=== PATIENT | male | born 1975 | race Caucasian/White ===

== ENCOUNTER 2016-12-04 19:26 | Inpatient (IN) ==
[2016-12-04] MEDS ORDERED: DIPRIVAN 1% 2,000 MG/200 ML BOTTLE ONE (21:07)
[2016-12-04] MEDS ORDERED: ZOFRAN IV PRN (22:20)
[2016-12-04] MEDS ORDERED: NS 1,000 ML IV ONE (22:20)
[2016-12-04] MEDS ORDERED: NS 1,000 ML IV SCH (22:20)
[2016-12-04] MEDS ORDERED: SODIUM CHLORIDE 0.9% INJ SCH (22:30)
[2016-12-04] MEDS: NEXIUM IV SCH (22:38)
[2016-12-04] MEDS: SODIUM CHLORIDE 0.9% INJ SCH (22:38)
[2016-12-04] MEDS: LOVENOX SUBQ SCH (22:39)
--- NOTE | 2016-12-04 23:11 | HISTORY AND PHYSICAL ---
PRIMARY CARE PHYSICIAN: Dr. Nhung Quiles CHIEF COMPLAINT: Patient transferred from another hospital. HISTORY OF PRESENT ILLNESS: This is patient that was transferred from [facility] in [place]. Patient admitted over there for drug overdose. Apparently the patient was brought [facility] after being arrested in the police. After arriving to environmental protection officer reported patient became very agitated and diaphoretic so patient was brought to emergency department by EMS. Patient denies any ingestion there. Friends stated that he takes crystal meth. Over there apparently he was not able to managing airway so after he got 10 mg of Valium because he was agitated it was needed to intubate this patient. I was called for transfer this patient because apparently over there the were running out of propofol and that was basically reason for transfer. Patient over here vitals are okay. No family in the bedside to provide more information. All this information has been provided by ER physician from [facility]. By now patient is sedated and intubated. PAST MEDICAL HISTORY: As per ER records patient has hypertension and diabetes but apparently over there family reports that he was not taking any medication as he is suppose to. Past surgical history, family history, review of systems not possible to obtain because of the clinical situation of the patient. ALLERGIES: As per another facility no known drug allergies. PHYSICAL EXAMINATION: VITALS: Blood pressure 147/98, heart rate 96, respiratory rate 18, patient is on ventilator. GENERAL EXAMINATION: This is a 41-year-old male overweight, sedated and intubated. HEENT: Head is normocephalic, atraumatic. Pupils equal, round, reactive to light, accommodation. NECK: Supple. JVD not possible to obtain because of the neck girth and now with thyromegaly noted, no lymphadenopathy. CARDIOVASCULAR: S1, S2 heard. No murmurs, gallops, rubs, regular rate and rhythm. RESPIRATORY: Clear bilaterally to auscultation. No work of breathing or using accessory muscles. ABDOMEN: Soft, nontender to palpation. Bowel sounds present. No organomegaly. EXTREMITIES: No clubbing, cyanosis, edema. Peripheral pulses present in both legs. NEUROLOGICAL: Patient sedated and intubated. LABORATORY DATA: Labs from outside facility in [facility] reveals white cell count 13.3, hemoglobin 16.2, hematocrit 47.6, platelets 474,000. The UDS is positive for marijuana, amphetamines and methamphetamine. The BMP shows glucose 142 and rest of basic metabolic profile and liver function tests are completely normal. ASSESSMENT AND PLAN: 1. Acute respiratory failure on ventilator. 2. Drug overdose. 3. Occipital encephalopathy. 4. Hypertension. 5. Diabetes mellitus . PLAN: Patient has been accepted from our facility for drug overdose and currently intubated over there. We are going to consult Dr. Tena for management of ventilator. We are going to continue with sedation in this case propofol for this patient. Blood pressure now is better controlled but will use hydralazine p.r.n. to systolic blood pressure greater than 180 and for diabetes we are going to check hemoglobin A1c and as soon as this patient is awake will start insulin sliding scale. We are going to check an ABG and chest x-ray tomorrow. Although the white cell count is a little bit elevated I prefer to watch this patient and depending upon what the x- rays shows tomorrow will see if this patient needs coverage for possible aspiration pneumonia. There is no report for any aspiration while this patient was in the ER in [facility]. Further recommendations to follow according to the clinical situation of the patient. cc: Riki La MD
[2016-12-05] MEDS: DIPRIVAN 1% 1,000 MG/100 ML BOTTLE IV SCH ×14 (00:07→22:39)
[2016-12-05] MEDS: APRESOLINE IV PRN ×2 (01:19→22:40)
[2016-12-05 04:37] LABS: ALLEN TEST YES; BE 0.2 mmoll (-3.0-3.0); BLOOD TYPE ARTERIAL; DRAW SITE R RADIAL; METHB 0.9 % (0.0-1.5); O2(CT) 20.3 mL/dL (15.0-23.0); PCO2(98.6) 39 mmHg (35-45); PO2(98.6) 129 mmHg (60-100); SAMPLE BLOOD; SAO2 98.4 % (95.0-100.0); SRATE 18 BPM; THB 14.9 g/dL (11.5-17.4); TVOL 600 mL; pH(98.6) 7.41 (7.35-7.45)
[2016-12-05 04:38] LABS: MODALITY VENTILATOR
[2016-12-05 06:05] LABS: BASO% 0.3 % (0.0-0.8); EOS# 0.02 X1000 (0.0-0.7); EOS% 0.1 % (0.0-10.0); HEMATOCRIT 43.4 % (42.0-52.0); HEMOGLOBIN 14.6 g/dL (14.0-18.0); IMM GRAN# 0.05 X1000 (0.0-0.04); IMM GRAN% 0.3 % (0.0-0.5); LYMPH# 2.51 X1000 (1.2-3.4); LYMPH% 16.2 % (20.5-51.1); MANUAL DIFF NEEDED? NO; MCHC 33.6 g/dL (33-37); MCV 89.1 FL (81-99); MONO# 1.89 X1000 (0.11-0.59); MONO% 12.2 % (1.7-9.3); NEUT% 70.9 % (42.2-75.2); PLT 418 X1000 (130-400); RBC 4.87 XMIL (4.7-6.1)
[2016-12-05 06:14] LABS: AGAP 13; BUN 8 mg/dL (8-22); CALCIUM 8.2 mg/dL (8.8-10.2); CHLORIDE 108 mmol/L (98-107); COSMO 285; POTASSIUM 3.6 mmol/L (3.5-5.1); SODIUM 144 mmol/L (136-145); TCO2 23 mmol/L (25-35)
[2016-12-05 06:23] LABS: HEMOGLOBIN A1C 5.5 % (4.8-6.0)
--- NOTE | 2016-12-05 08:15 | Diag Imaging Result Doc PS360 ---
EXAM: CHEST-PORTABLE INDICATION: intubated TECHNIQUE: One view COMPARISON: None. FINDINGS: There is an ET tube projecting of the trachea and above the bre with the tip at about the T3-4 level. There is an NG tube with the tip projecting below the diaphragm and assumed to be coiled in the stomach in the expected position. Inspiration is suboptimal. There is a left basilar opacity projecting behind the heart border. Infiltrate is not excluded. There is suggestion of a trace left pleural effusion. Cardiac silhouette is borderline prominent, probably due to magnification from AP technique, at least in part. Central vasculature is mildly prominent suggesting mild pulmonary venous congestion. IMPRESSION: 1.ET tube and NG tube in place as detailed above. 2.Retrocardiac opacity at the left lung base suggesting infiltrate versus atelectasis. 3.Suggestion of a trace left effusion. 4.Suggestion of mild venous congestion. Electronically signed by Davis Shabazz 12/05/2016 8:13 AM
--- NOTE | 2016-12-05 12:01 | PROGRESS NOTE ---
DATE: 12/05/2016 SUBJECTIVE: Today, Mr. Brady was apparently admitted last night from [facility] in [place] as a transfer. Apparently, the police sent him over there because of some drug-related charges. Over there, he became very agitated and had to be intubated, and I understand that there was no propofol over there to keep him under the vent, so he was brought in here for medical care. Today, he seems to be doing fine. He is still pending Pulmonary Medicine to evaluate him. OBJECTIVE: Vital Signs: Blood pressure is 158/97, pulse of 87, respirations 18 , temperature 98.1 degrees. General: Mr. Brady is a 41-year-old male. He is in bed. He is intubated and seems to be synchronizing well with the ventilator. HEENT: Mucosa is pink and moist. Anicteric. Acyanotic. Neck is supple. Chest: Good air entry bilateral. No crepitations. No rhonchi. Cardiovascular: Regular rate and rhythm. There are no murmurs, no rubs, no gallops. Abdomen is soft, distended. Bowel sounds are present. There is no hepatosplenomegaly. Extremities: No pedal edema. EXCHANGE ARCHITECT: Patient is intubated and sedated. Pupils are slightly round and they are reactive. Patient has good gag reflex. Unable to withdraw from pain. LABORATORY DATA: WBC is 15.52, hemoglobin is 14.9, platelet count of 408,000. Chemistry is reviewed. Completely unremarkable. A1c 7.0 A chest x-ray which was done early this morning: Possible cardiomegaly with left lung base retrocardiac opacity suggestive of infiltrate versus atelectasis. Mild venous congestion. Patient is currently on propofol, IV fluids, and Nexium for stress ulcer prophylaxis. Also on Lovenox for DVT prophylaxis. ASSESSMENT: 1. Respiratory failure on ventilator. 2. Metabolic encephalopathy. 3. Drug overdose. 4. Hypertension. 5. Diabetes. 6. Morbid obesity with Body Mass Index of 43.3. Upon review of the report from [facility], the alleged drug overdose was amphetamine. The urine toxicology from [facility] was positive for THC, amphetamine, methamphetamine. cc: MD Riki Jones MD [facility]
[2016-12-05] MEDS: LASIX IV SCH ×2 (12:46→19:35)
[2016-12-05] MEDS: NS 1,000 ML IV SCH ×2 (13:55→21:43)
[2016-12-05] MEDS: DUONEB (A & A) INH SCH ×3 (15:39→23:19)
--- NOTE | 2016-12-05 16:25 | CONSULTATION ---
DATE OF CONSULTATION: 12/05/2016 PULMONARY CRITICAL CARE CONSULTATION: Thank you very much for asking me to see this very unfortunate 41-year-old male, white. DIAGNOSIS: 1. Polysubstance overdose. 2. Chronic obstructive pulmonary disease. 3. Diabetes mellitus. 4. Hypertension. 5. Respiratory failure and a low Aa gradient based on above. RECOMMENDATIONS: I believe that this is probably largely respiratory sedation. I do not see a whole lot of aspiration or pneumonia. I do believe he is slightly volume overloaded. I would diurese him, limit his fluids, give him DVT prophylaxis with Lovenox, and give him bronchodilators, try to monitor his work of breathing, try to wake him in the next 24 hours and try to start weaning, and we will follow closely along with you. HISTORY: This very unfortunate 41-year-old male, white, apparently was incarcerated and developed agitation and combativeness. He was taken with the [facility] where he was intubated and subsequently transferred to [facility] for management of his respiratory failure and agitation. He is sedated and gives no other history. He apparently has no history of trauma or infection recently. REVIEW OF SYSTEMS: Except for the featured mentioned above, are negative for weight loss, Negative for weakness or anorexia. No ENT symptoms of odynophagia, dysphagia, epistaxis or painful swallowing. No eye symptoms of blindness, blurring or diplopia. No other cardiac or pulmonary symptoms other than mentioned. No nausea, vomiting, constipation, diarrhea. No hematuria, polyuria, nocturia, dysuria. No joint or muscle pain, stiffness, swelling. No skin rashes, itching, bruises. No seizures, loss of consciousness, or paralysis. Except for the features mentioned above, all other symptoms on the review of systems are negative. FAMILY HISTORY: Positive for ischemic heart disease in his father, hypertension in his mother. PAST MEDICAL HISTORY: Apparently is positive for hypertension and diabetes. SOCIAL HISTORY: Uncertain presently. PHYSICAL EXAM: The physical exam on this kind young man shows a blood pressure of 158/97, with a pulse 110, respirations 18, temperature 98.1 degrees.HEENT: Reveals no thyromegaly or adenopathy. Pupils are equal and reactive. Extraocular muscles are intact. Neck: Supple. No bruits. No thyromegaly. No JVD. Chest: Reveals bilateral equal breath sounds with some prolongation of expiratory phase, forced expiratory wheezes. Cardiac: Reveals a regular rhythm without an appreciable murmur. Abdomen: Soft. Skin: Warm and dry. Neurologically: He is sedated but he moves all 4. His cranial nerves appear to be intact on painful stimulus. DIAGNOSTIC DATA: The chest radiograph demonstrates an ET tube in position, NG tube in position, clear infiltrates, and modest cardiomegaly. The sodium is 144, potassium 3.6, chloride 108, CO2 23, BUN 8, creatinine 1.0, glucose 91. The white count is 15,500, with hemoglobin of 14.6, hematocrit of 43.1, and platelets of 418,000. The ABG shows a 7.41 pH with a 39 CO2 and a 129 O2 on assist control of 18, +5 of PEEP, 600 tidal volume, 60%. cc: Riki La MD [facility]
[2016-12-05] MEDS: LOVENOX SUBQ SCH (21:43)
[2016-12-05] MEDS: NEXIUM IV SCH (21:49)
[2016-12-05] MEDS: MORPHINE IV PRN (23:32)
[2016-12-06] MEDS: DIPRIVAN 1% 1,000 MG/100 ML BOTTLE IV SCH ×15 (00:42→22:53)
[2016-12-06] MEDS: LASIX IV SCH ×2 (03:17→12:56)
[2016-12-06] MEDS: DUONEB (A & A) INH SCH ×6 (03:28→23:15)
[2016-12-06 04:18] LABS: MANUAL DIFF NEEDED? NO
[2016-12-06 04:20] LABS: BASO% 0.4 % (0.0-0.8); EOS% 0.6 % (0.0-10.0); HEMATOCRIT 48.4 % (42.0-52.0); HEMOGLOBIN 16.4 g/dL (14.0-18.0); IMM GRAN# 0.04 X1000 (0.0-0.04); IMM GRAN% 0.2 % (0.0-0.5); LYMPH# 1.61 X1000 (1.2-3.4); LYMPH% 8.9 % (20.5-51.1); MCH 29.8 PG (27-31); MCHC 33.9 g/dL (33-37); MCV 87.8 FL (81-99); MONO# 1.83 X1000 (0.11-0.59); MONO% 10.1 % (1.7-9.3); MPV 8.7 FL (7.4-10.4); NEUT% 79.8 % (42.2-75.2); PLT 407 X1000 (130-400); RBC 5.51 XMIL (4.7-6.1)
[2016-12-06 04:23] LABS: ALLEN TEST YES; BE 3.3 mmoll (-3.0-3.0); BLOOD TYPE ARTERIAL; DRAW SITE R RADIAL; METHB 1.2 % (0.0-1.5); O2(CT) 20.6 mL/dL (15.0-23.0); PCO2(98.6) 41 mmHg (35-45); PO2(98.6) 51 mmHg (60-100); SAMPLE BLOOD; SAO2 89.9 % (95.0-100.0); SRATE 18 BPM; THB 16.8 g/dL (11.5-17.4); TVOL 600 mL; pH(98.6) 7.44 (7.35-7.45)
[2016-12-06 04:25] LABS: MODALITY VENTILATOR
[2016-12-06 04:44] LABS: AGAP 13; BUN 10 mg/dL (8-22); CALCIUM 8.7 mg/dL (8.8-10.2); CHLORIDE 101 mmol/L (98-107); COSMO 280; POTASSIUM 3.1 mmol/L (3.5-5.1); SODIUM 140 mmol/L (136-145); TCO2 26 mmol/L (25-35)
--- NOTE | 2016-12-06 08:21 | Diag Imaging Result Doc PS360 ---
EXAM: CHEST-1 VIEW INDICATION: resp failure TECHNIQUE: One view COMPARISON: 12/05/2016 FINDINGS: NG tube and ET tube are in stable positions. There has been interval complete opacification of the right hemithorax. The patient is rotated toward the right there are also may be mild rightward midline shift. Consider diffuse atelectasis from mucous plugging versus dense infiltrate involving the entire right lung. There is slightly decreased opacity at the left lung base. However, this may be technical due to positioning. IMPRESSION: Interval complete opacification of the right hemithorax as described. Electronically signed by Davis Shabazz 12/06/2016 8:19 AM
[2016-12-06] MEDS ORDERED: VANCOMYCIN IV PER PHARMACY MISC SCH (09:15)
[2016-12-06] MEDS: MAXIPIME 1 GM/NS 1 GM/50 ML IVPB IV SCH ×2 (09:38→22:25)
[2016-12-06] MEDS: VANCOMYCIN 2 GM in NS 500 ML IV SCH (10:42)
--- NOTE | 2016-12-06 12:11 | PROGRESS NOTE ---
DATE: 12/06/2016 This morning, the patient continues to be intubated. According to the nurses, his oxygen saturation dropped very low and they and they had to go up on the FiO2. OBJECTIVELY: Vital signs: Now, blood pressure is 145/72, pulse of 102, respiration is O2 saturation is 94, and is on 100% FiO2. General: The patient is a 41-year-old male. He is in bed, intubated and sedated on propofol. HEENT: Mucosa is pink and moist. Anicteric. Acyanotic. Neck: Supple. Chest: Air entry is remarkably reduced in the right in the right lung. There are a few bilateral crepitations and transmitted sounds from the ventilator. Cardiovascular: Tachycardic but no murmurs, no rubs. No gallops. Abdomen: Soft. No hepatosplenomegaly. Extremities: No pedal edema. RADIO STATION ENGINEER: Patient is intubated and sedated. The pupils are round and sluggishly reactive. DIAGNOSTIC DATA: A chest x-ray this morning shows complete opacification of the right hemithorax consistent with diffuse atelectasis from possible mucus plug. LABORATORY DATA: WBC is up to 18.14, hemoglobin is 16.4, platelet count 407, 000. Chemistry is reviewed, completely normal except for potassium of 3.1. ASSESSMENT: 1. Acute hypoxemic respiratory failure. The patient is currently on the ventilator. The patient is demanding a lot of FiO2 to maintain adequate oxygenation, and x-ray has shown a complete atelectatic right lung which we think is probably due to a mucus plug. I have notified the nurse so that we can get pulmonary notified about this finding, which I think probably the patient will need a bronchoscopy to help to open the right lung. 2. Metabolic encephalopathy on presentation due to drug overdose. 3. Polysubstance abuse with UDS positive for THC, amphetamine and methamphetamine. 4. History of hypertension, stable. 5. Diabetes mellitus. 6. Obesity with BMI of 43.3. 7. Hypokalemia. We will replace this. So today, the patient is stable, but still critical. He has developed more hypoxemia secondary to complete atelectasis of the right lung. We have notified pulmonary medicine. White count has also gone up slightly. I think it is probably due to the same acute lung collapse. I am not sure if there is a superimposed infection, so I have gone ahead and empirically started the patient on antibiotics. I personally also spoke and notify Dr Borja about the chest ray findings CRITICAL TIME SPENT: 45 minutes. cc: MD Riki Jones MD MTDD
[2016-12-06] MEDS ORDERED: LEVAQUIN 500 MG/D5W 500 MG/100 ML IVPB IV ONE (12:35)
[2016-12-06] MEDS: NS 1,000 ML IV SCH (12:57)
[2016-12-06] MEDS: LOVENOX SUBQ SCH (22:25)
[2016-12-06] MEDS: NEXIUM IV SCH (22:25)
[2016-12-06] MEDS: SODIUM CHLORIDE 0.9% INJ SCH (22:25)
[2016-12-07] MEDS: DIPRIVAN 1% 1,000 MG/100 ML BOTTLE IV SCH ×14 (00:21→21:59)
[2016-12-07] MEDS: DUONEB (A & A) INH SCH ×6 (03:26→23:30)
[2016-12-07 04:49] LABS: ALLEN TEST YES; BE 2.7 mmoll (-3.0-3.0); BLOOD TYPE ARTERIAL; DRAW SITE R RADIAL; O2(CT) 17.7 mL/dL (15.0-23.0); PCO2(98.6) 44 mmHg (35-45); PO2(98.6) 60 mmHg (60-100); SAMPLE BLOOD; SAO2 94.4 % (95.0-100.0); SRATE 18 BPM; THB 13.8 g/dL (11.5-17.4); TVOL 650 mL; pH(98.6) 7.41 (7.35-7.45)
[2016-12-07 04:50] LABS: MODALITY VENTILATOR
[2016-12-07] MEDS: VANCOMYCIN 2 GM in NS 500 ML IV SCH ×2 (05:00→22:00)
[2016-12-07 05:02] LABS: AGAP 12; BASO% 0.2 % (0.0-0.8); BUN 18 mg/dL (8-22); CHLORIDE 98 mmol/L (98-107); COSMO 274; EOS# 0.22 X1000 (0.0-0.7); EOS% 0.9 % (0.0-10.0); HEMATOCRIT 46.9 % (42.0-52.0); HEMOGLOBIN 15.7 g/dL (14.0-18.0); LYMPH# 1.17 X1000 (1.2-3.4); MANUAL DIFF NEEDED? YES; MCH 30.6 PG (27-31); MCHC 33.5 g/dL (33-37); MCV 91.4 FL (81-99); MONO# 2.04 X1000 (0.11-0.59); MONO% 8.7 % (1.7-9.3); NEUT% 85.2 % (42.2-75.2); PLT 325 X1000 (130-400); RBC 5.13 XMIL (4.7-6.1); SODIUM 135 mmol/L (136-145); TCO2 25 mmol/L (25-35)
[2016-12-07 05:46] LABS: BANDS 2 % (0-1); LYMPHS 2 % (21-51); MONO 6 % (1-9)
--- NOTE | 2016-12-07 05:58 | Diag Imaging Result Doc PS360 ---
EXAM: CHEST-PORTABLE HISTORY: dyspnea TECHNIQUE: Portable COMPARISON: 12/06/2016 FINDINGS: There is near complete opacification of the right hemithorax. A nasogastric tube overlies the esophagus and stomach. Mild increased interstitial markings in the left base. There is a granuloma in the mid left lung. No left pleural effusion identified. IMPRESSION: No definite interval improvement. Electronically signed by Tacos Lama 12/07/2016 5:56 AM
[2016-12-07] MEDS: TYLENOL PR PRN (09:56)
[2016-12-07] MEDS: MAXIPIME 1 GM/NS 1 GM/50 ML IVPB IV SCH ×2 (10:11→21:41)
[2016-12-07] MEDS: NS 1,000 ML IV SCH ×2 (10:11→12:32)
[2016-12-07] MEDS ORDERED: SODIUM CHLORIDE 0.9% 20 ML ONE (10:13)
[2016-12-07] MEDS ORDERED: EPINEPHRINE ONE (10:15)
[2016-12-07] MEDS ORDERED: XYLOCAINE 2% ONE (10:15)
[2016-12-07] MEDS: MUCOMYST 20% INH SCH ×2 (11:28→19:38)
--- NOTE | 2016-12-07 11:44 | OPERATIVE NOTE ---
PROCEDURE DATE: SURGEON: Anitra Ibarra MD. PROCEDURE: Bronchoscopy. REFERRING PHYSICIAN: Dr. Jarrett. INDICATION: Mucus plugging and right white out on chest x-ray, right atelectasis, requiring high oxygen demand and high PEEP on the ventilator. DESCRIPTION OF PROCEDURE: Consent obtained for conscious sedation. The patient is in the ICU and he is on Diprivan drip. The patient is on the ventilator. ET tube passed through the current tube using the T connection needed. Then all major segments visualized. There is right mainstem mucous plugging that was suctioned, lavaged, and then we instilled diluted Mucomyst. Patient tolerated the procedure well. Mucus plugging pictures taken and they cleared completely. Otherwise no endobronchial lesions. After procedure chest x-ray is requested. IMPRESSIONS: 1. Mucous plugging, improved. 2. Right white-out atelectasis. PLAN: Chest x-ray. Follow up. Continue assist ventilator. cc: MD Jose Wallace MD
--- NOTE | 2016-12-07 11:49 | PROGRESS NOTE ---
DATE: 12/07/2016 SUBJECTIVE: Today, Mr. Brady continues to be intubated. No acute changes overnight. He just underwent a bronchoscopy for mucus plug extraction. OBJECTIVE: Vital Signs: Blood pressure is 125/75, pulse of 112, respirations were 18, temperature is 98.8 degrees. General Examination: Mr. Brady is a 41-year-old, male. He is in bed, intubated and sedated on propofol. HEENT: Mucosa is pink and moist. Anicteric and acyanotic. Neck is supple. The face is slightly rubicund . Chest: Air entry is bilaterally reduced but more so on the right. There were diffuse crepitations. Cardiovascular: Tachycardic but no murmurs, no rubs. No gallops. Abdomen: Soft. No hepatosplenomegaly. Extremities: No pedal edema. ELECTRIC SHAVER MECHANIC: Patient is intubated and sedated. Laboratory Data: WBC is 23.34, hemoglobin is 15.7, platelet count of 330,000. There is 2% bands on the peripheral smear. Chemistry is reviewed. Sodium is 135. Rest of chemistry is completely normal. The ABG has also been reviewed. A chest x-ray this morning continues to show opacification of the right lung. CURRENT MEDICATIONS: 1. Cefepime 1 g q.12. 2. Lovenox 40 q.24. 3. Nexium 40 every 24 hours. 4. Alprazolam p.r.n. 5. Vancomycin. ASSESSMENT: 1. Acute hypoxemic respiratory failure. The patient continues to be on the ventilator. He developed mucus plugs to the right lung with a complete atelectatic lung. He just underwent bronchoscopy with Dr. Ibarra. We will follow up with a repeat x-ray. 2. Metabolic encephalopathy on presentation. 3. Polysubstance abuse. Urine drug screen is positive for THC, amphetamine, and methamphetamine. 4. History of hypertension. 5. Diabetes mellitus. 6. Obesity with body mass index of 43.3. 7. Hypokalemia, improved. 8. Suspected methicillin-resistant Staphylococcus aureus superimposed pneumonia. The patient's sputum culture is presumed positive for methicillin-resistant Staphylococcus aureus. The patient is already on vancomycin. Critical time spent 45 minutes. cc: MD SABINA Jones
--- NOTE | 2016-12-07 12:08 | Diag Imaging Result Doc PS360 ---
EXAM: CHEST-PORTABLE HISTORY: s/p bronchoscopy TECHNIQUE: COMPARISON: Film taken at 5:00 AM FINDINGS: The right lung is much better aerated on the current exam. No pneumothorax. Heart is not enlarged. Prominent right perihilar density. A nasogastric tube overlies the esophagus and stomach. No change in appearance of the left chest. IMPRESSION: Interval improvement with partial reexpansion of the right lung. Electronically signed by Tacos Lama 12/07/2016 12:06 PM
[2016-12-07] MEDS: MORPHINE IV PRN (19:40)
[2016-12-07] MEDS: LOVENOX SUBQ SCH (21:41)
[2016-12-07] MEDS: NEXIUM IV SCH (21:55)
[2016-12-08] MEDS: DIPRIVAN 1% 1,000 MG/100 ML BOTTLE IV SCH ×13 (00:42→23:34)
[2016-12-08] MEDS: DUONEB (A & A) INH SCH ×6 (03:52→22:36)
[2016-12-08 06:12] LABS: ALLEN TEST YES; BLOOD TYPE ARTERIAL; DRAW SITE R RADIAL; METHB 1.1 % (0.0-1.5); O2(CT) 17.7 mL/dL (15.0-23.0); PCO2(98.6) 46 mmHg (35-45); PO2(98.6) 66 mmHg (60-100); SAMPLE BLOOD; SAO2 95.1 % (95.0-100.0); SRATE 18 BPM; THB 13.7 g/dL (11.5-17.4); TVOL 650 mL
[2016-12-08 06:38] LABS: MODALITY VENTILATOR
[2016-12-08 07:28] LABS: AGAP 11; ALBUMIN 2.7 g/dL (3.5-5.0); ALKALINE PHOSPHATASE 80 U/L (32-122); BUN 18 mg/dL (8-22); CALCIUM 8.6 mg/dL (8.8-10.2); CHLORIDE 101 mmol/L (98-107); COSMO 278; GOT 37 U/L (10-34); GPT 51 U/L (10-44); POTASSIUM 3.8 mmol/L (3.5-5.1); SODIUM 138 mmol/L (136-145); TCO2 26 mmol/L (25-35); TOTAL BILIRUBIN 1.57 mg/dL (0.20-1.00); TOTAL PROTEIN 6.4 g/dL (6.3-8.3)
--- NOTE | 2016-12-08 07:31 | Diag Imaging Result Doc PS360 ---
CHEST-PORTABLE - 12/08/2016 INDICATION: dyspnea TECHNIQUE: COMPARISON: 12/07/2016 FINDINGS: Stable support tubes. Stable cardiomegaly and pulmonary vascular congestion. Stable significant right perihilar consolidation. Stable bibasilar infiltrates and probable effusions. IMPRESSION: No change from prior. Electronically signed by Marin Ramos 12/08/2016 7:28 AM
[2016-12-08 07:39] LABS: BASO% 0.3 % (0.0-0.8); EOS# 0.42 X1000 (0.0-0.7); EOS% 2.1 % (0.0-10.0); HEMATOCRIT 42.7 % (42.0-52.0); IMM GRAN# 0.19 X1000 (0.0-0.04); LYMPH# 1.26 X1000 (1.2-3.4); LYMPH% 6.3 % (20.5-51.1); MANUAL DIFF NEEDED? YES; MCH 29.7 PG (27-31); MCHC 32.8 g/dL (33-37); MCV 90.7 FL (81-99); MONO# 2.24 X1000 (0.11-0.59); MONO% 11.3 % (1.7-9.3); PLT 356 X1000 (130-400); RBC 4.71 XMIL (4.7-6.1)
[2016-12-08] MEDS: MUCOMYST 20% INH SCH ×2 (08:07→19:16)
[2016-12-08 08:26] LABS: BANDS 6 % (0-1); LYMPHS 8 % (21-51); MONO 4 % (1-9)
[2016-12-08] MEDS: MAXIPIME 1 GM/NS 1 GM/50 ML IVPB IV SCH ×2 (09:28→21:17)
--- NOTE | 2016-12-08 11:49 | PROGRESS NOTE ---
DATE: 12/08/2016 SUBJECTIVE: Today, Mr. Brady continues to be intubated. Per his nurse, there has not been any acute changes overnight. OBJECTIVE: Vital Signs: Blood pressure is 117/68, pulse of 108, respirations are 20, temperature is 99.8 degrees. Patient is saturating about 94 on mechanical ventilation. General Examination: Mr. Brady is a 41-year-old, male. He is in bed, critically sick, intubated. HEENT: Mucosa is pink and moist. Anicteric and acyanotic. Neck: Supple. Chest: Air entry is bilaterally reduced but the air movement is much better in the right lung than yesterday. There are still diffuse crepitations in the lung field. Cardiovascular: Tachycardic but no murmurs. No rubs. No gallops. Abdomen: Soft. TAX ADVISOR: Patient is intubated and sedated on propofol but he is able to sluggishly open his eyes to painful stimulation. He will move his lower extremities to pain. Laboratory Data: WBCs 19.9, hemoglobin is 14, platelet count is 356,000. There are only 6% of bands on periphery smear. Chemistry is reviewed. It is completely unremarkable. Blood gases have also been reviewed and they are normal. A chest x-ray this morning shows stable cardiomegaly and pulmonary vascular congestion, stable significant right perihilar consolidation, stable bibasilar infiltrates and possible effusions. CURRENT MEDICATIONS: 1. Tylenol p.r.n. 2. Mucomyst. 3. Cefepime 1 g q.12. 4. Lovenox 40 subcutaneous. 5. Nexium 40 IV q.12. 6. Hydralazine p.r.n. 7. Vancomycin per protocol. 8. Normal saline at 30 mL per hour. 9. The patient is getting tube feedings. INTAKES AND OUTPUTS: Urine output is 1085. Patient has an accumulative positive balance of 3993. ASSESSMENT: 1. Acute hypoxemic respiratory failure. 2. Altered mental status secondary to metabolic encephalopathy. 3. Polysubstance abuse with urine drug screen positive for THC, amphetamine, and methamphetamine. 4. Bilateral lung infiltrates, questionable for hospital/ventilator associated pneumonia. The patient has sputum positive for methicillin-resistant Staphylococcus aureus. We will continue with the vancomycin. 5. Hypokalemia, improved. 6. History of diabetes and hypertension. 7. Pulmonary edema. We think this is all probably related to the lung infection. However, the patient has cardiomegaly. He is a diabetic. He is hypertensive. Has significant risk factors for coronary artery disease. We will therefore do an echocardiogram to make sure he is not in any heart failure. We will do proBNP and troponins just to see his heart status. 8. Tube Feeding. The patient is said to be retaining some of his nasogastric tube feeding so we will put him on Reglan as needed as a prokinetic agent to help with the tube feedings. Critical time spent is 45 minutes. cc: Jose Jarrett MD MTDD
[2016-12-08] MEDS: TYLENOL PR PRN (12:13)
[2016-12-08] MEDS: REGLAN LIQUID PO PRN ×2 (12:14→21:14)
[2016-12-08] MEDS: NS 1,000 ML IV SCH (12:45)
--- NOTE | 2016-12-08 13:01 | ECHO REPORT ---
ORDER DATE: 12/08/2016 INTERPRETING PHYSICIAN: Dr. Alexis Mai. ECHOCARDIOGRAPHIC MEASUREMENTS: 1. Interventricular septum: 1.3 cm. 2. Left ventricle posterior wall: 1.3 cm. 3. Diastolic diameter: 5.2 cm. 4. Left atrium: 3.9 cm. 5. Aortic: 2.7 cm. SUMMARY OF THE 2-DIMENSIONAL IMAGIN. Normal left ventricular cavity size. Estimated ejection fraction of 55%-60%. Right ventricle is dilated with a reduced right ventricular systolic function. Prominent moderator band was noted. Normal variant. 2. Mitral valve was normal. Tricuspid valve was normal. Aortic valve leaflets are normal. 3. There is mild tricuspid regurgitation. Peak velocity across the tricuspid valve was 3.7 m/sec. Pulmonary artery systolic pressure of 66 mmHg. There is pulmonary arterial hypertension. There is mild mitral regurgitation. 4. There is no aortic stenosis or regurgitation. 5. Anterior echo-free space suggestive of pericardial fat pad was noted. There is no pericardial effusion or obvious intracardiac mass or thrombus seen. cc: MD Jose Howell MD
[2016-12-08] MEDS ORDERED: LASIX IV ONE (14:15)
[2016-12-08] MEDS ORDERED: TYLENOL PRN (14:16)
[2016-12-08] MEDS: VANCOMYCIN 2 GM in NS 500 ML IV SCH (17:53)
[2016-12-08] MEDS: NEXIUM IV SCH (21:31)
[2016-12-08] MEDS: LOVENOX SUBQ SCH (21:31)
[2016-12-09] MEDS: DIPRIVAN 1% 1,000 MG/100 ML BOTTLE IV SCH ×14 (01:11→23:50)
[2016-12-09] MEDS: TYLENOL PO PRN ×2 (01:14→05:05)
[2016-12-09] MEDS: MORPHINE IV PRN ×3 (01:16→10:04)
[2016-12-09] MEDS: NS 1,000 ML IV SCH (02:42)
[2016-12-09] MEDS: DUONEB (A & A) INH SCH ×6 (03:09→23:04)
[2016-12-09 04:17] LABS: ALLEN TEST YES; BE 4.5 mmoll (-3.0-3.0); BLOOD TYPE ARTERIAL; DRAW SITE R RADIAL; METHB 0.9 % (0.0-1.5); O2(CT) 18.8 mL/dL (15.0-23.0); PCO2(98.6) 46 mmHg (35-45); PO2(98.6) 98 mmHg (60-100); SAMPLE BLOOD; SAO2 98.5 % (95.0-100.0); SRATE 18 BPM; THB 13.8 g/dL (11.5-17.4); TVOL 650 mL; pH(98.6) 7.42 (7.35-7.45)
[2016-12-09 04:18] LABS: MODALITY VENTILATOR
[2016-12-09] MEDS: VANCOMYCIN 2 GM in NS 500 ML IV SCH ×2 (05:14→18:33)
[2016-12-09 05:47] LABS: BASO% 0.4 % (0.0-0.8); EOS# 0.48 X1000 (0.0-0.7); EOS% 2.8 % (0.0-10.0); HEMATOCRIT 40.9 % (42.0-52.0); HEMOGLOBIN 13.4 g/dL (14.0-18.0); IMM GRAN# 0.39 X1000 (0.0-0.04); IMM GRAN% 2.2 % (0.0-0.5); LYMPH# 1.26 X1000 (1.2-3.4); LYMPH% 7.2 % (20.5-51.1); MANUAL DIFF NEEDED? YES; MCH 29.6 PG (27-31); MCHC 32.8 g/dL (33-37); MCV 90.5 FL (81-99); MONO# 2.61 X1000 (0.11-0.59); MPV 10.5 FL (7.4-10.4); NEUT% 72.4 % (42.2-75.2); PLT 380 X1000 (130-400); RBC 4.52 XMIL (4.7-6.1)
[2016-12-09 06:05] LABS: AGAP 11; BUN 19 mg/dL (8-22); CALCIUM 8.9 mg/dL (8.8-10.2); CHLORIDE 97 mmol/L (98-107); COSMO 273; POTASSIUM 3.8 mmol/L (3.5-5.1); SODIUM 135 mmol/L (136-145); TCO2 27 mmol/L (25-35)
[2016-12-09 06:44] LABS: BANDS 4 % (0-1); LARGE PLATELETS 1+; LYMPHS 8 % (21-51); MONO 14 % (1-9)
[2016-12-09] MEDS ORDERED: NS 1,000 ML IV ONE (06:51)
--- NOTE | 2016-12-09 07:20 | Diag Imaging Result Doc PS360 ---
EXAM: CHEST-PORTABLE INDICATION: decreased o2 sats TECHNIQUE: One view COMPARISON: 12/09/2016 FINDINGS: Support tubes and lines are in stable positions. Bibasilar infiltrates and dense right perihilar infiltrate are unchanged. No new consolidation is appreciated. Cardiac silhouette is stable. IMPRESSION: Stable chest. Electronically signed by Davis Shabazz 12/09/2016 7:18 AM
--- NOTE | 2016-12-09 07:22 | Diag Imaging Result Doc PS360 ---
EXAM: CHEST-PORTABLE HISTORY: dyspnea TECHNIQUE: Portable COMPARISON: 12/08/2016 FINDINGS: No change in the endotracheal tube or nasogastric tube. There are dense infiltrates in the medial right lung and in the left base. These are questionable slightly less dense than on the prior exam. There is also basilar atelectasis with small pleural effusions. IMPRESSION: Questionable mild interval improvement. Electronically signed by Tacos Lama 12/09/2016 7:20 AM
[2016-12-09] MEDS: MUCOMYST 20% INH SCH ×2 (07:50→19:19)
--- NOTE | 2016-12-09 07:58 | EKG Report ---
Test Performed on : 12/09/2016 06:58:30 AM Test Reason : No Order in [facility] Blood Pressure : / mmHG Vent. Rate : 095 BPM Atrial Rate : 095 BPM P-R Int : 142 ms QRS Dur : 162 ms QT Int : 434 ms P-R-T Axes : -01 126 022 degrees QTc Int : 545 ms Normal sinus rhythm. Right bundle branch block Left posterior fascicular block Bifascicular block T wave abnormality, consider lateral ischemia Abnormal ECG When compared with ECG of 09-DEC-2016 06:52, (Unconfirmed) Sinus rhythm. has replaced Atrial fibrillation. Confirmed by Christopher Barcenas DO ([id number]) on 12/11/2016 1:06:50 PM
--- NOTE | 2016-12-09 07:58 | EKG Report ---
Test Performed on : 12/09/2016 06:52:54 AM Test Reason : No ORder in [employer] Blood Pressure : / mmHG Vent. Rate : 139 BPM Atrial Rate : 144 BPM P-R Int : 000 ms QRS Dur : 168 ms QT Int : 342 ms P-R-T Axes : 000 120 026 degrees QTc Int : 520 ms Atrial fibrillation. with rapid ventricular response. Right bundle branch block Left posterior fascicular block Bifascicular block T wave abnormality, consider lateral ischemia Abnormal ECG No previous ECGs available Confirmed by Christopher Barcenas DO ([id number]) on 12/11/2016 1:05:11 PM
[2016-12-09] MEDS: NIMBEX 80 MG in NS 160 ML IV SCH ×5 (08:00→23:52)
[2016-12-09 09:22] LABS: CK INDEX 0.5 (0.0-2.5); CK-MB 2.08 ng/mL (0.0-5.0)
[2016-12-09] MEDS: APRESOLINE IV PRN (10:04)
[2016-12-09] MEDS: MAXIPIME 1 GM/NS 1 GM/50 ML IVPB IV SCH (10:04)
[2016-12-09] MEDS ORDERED: MORPHINE IV ONE (10:47)
--- NOTE | 2016-12-09 11:30 | PROGRESS NOTE ---
DATE: 12/09/2016 Today Mr. Brady looks sicker than yesterday. According to the attending nurse he has been saturating lows and had to be paralyzed on the ventilator. His heart rate is also in the 130s. There was an episode of time where we did an EKG. It shows atrial fibrillation RVR and was converted but since this morning it continues to be high. The patient is also with a blood pressure of 205/102. GENERAL EXAM: Mr. Brady is a 41-year-old male. He is in bed, intubated, paralyzed and on sedation as well.HEENT: Mucosa is pink and moist. The upper chest and the face look more reddish. Neck: Is supple. Chest: Air entry is bilaterally reduced. There is a few bibasilar crepitations. Cardiovascular: Tachycardic but no murmurs. Abdomen: Is soft. Extremities: No pedal edema. ARABIC TEACHER: Patient is paralyzed and sedated. LABORATORY DATA: WBC is 17.43, hemoglobin is 13.4, platelet count is 308,000. Chemistry is reviewed. Sodium is 135, rest of chemistry is unremarkable. Troponin has been checked. It has been negative 2 times. An initial EKG was done which shows at about 6:58 shows normal sinus rhythm with right axis deviation, right bundle branch block. There was 1 that was initially done that looked like it was at about 6:52 that looked atrial fibrillation RVR. Continued to be a significant right axis deviation and right bundle branch block. CURRENT MEDICATIONS INCLUDE: 1. Cefepime 1 g q.12. 2. Cisatracurium. 3. Diltiazem has been started just now. 4. Nexium 40 IV q.24. 5. Reglan. 6. Propofol. 7. Vancomycin. Laboratory data has been reviewed. A chest x-ray this morning continued to show bibasilar infiltrates and dense right perihilar infiltrate which is unchanged. ASSESSMENT: 1. Acute hypoxemic respiratory failure. 2. Right perihilar consolidation MRSA pneumonia. The sputum culture is positive for MRSA. 3. Altered mental status likely due to metabolic encephalopathy. 4. History of diabetes and hypertension. 5. Pulmonary edema with an echo showing EF of 55-60%. The right ventricle is dilated with reduced right ventricular systolic function. 6. New onset atrial fibrillation RVR. So today Mr. Brady looks sicker, has developed new onset atrial fibrillation RVR , has some pulmonary edema. Looks like he is in diastolic heart failure. We are going to start him on the diltiazem drip. Cardiology has already been consulted. Of note on the echo they did find that the right ventricle is dilated with reduced ejection fraction. I am not sure if he has PE that is contributing to his significant hypoxemia. When the patient is a little bit more stable we are going to do a CT scan, a CTA of the lungs. For now, I will do a D-dimer and do a Doppler ultrasound of the lower extremities to see what is going on. Will start him on Lovenox full anticoagulation. We will continue with the current antibiotics and I have also consulted ID to help with the management of this supposed pneumonia. Critical time spent 45minutes. cc: Jose Jarrett MD MTDD
[2016-12-09 11:32] LABS: INR 1.04; PROTIME 10.9 Seconds (9.2-11.7); PTT 25.7 Seconds (22.0-36.0)
[2016-12-09] MEDS: CARDIZEM 100 MG/NS 100 MG/100 ML IVPB IV SCH ×2 (12:37→20:54)
[2016-12-09] MEDS ORDERED: NS 250 ML ONE (12:38)
[2016-12-09] MEDS: LOVENOX SUBQ SCH ×2 (12:44→23:50)
[2016-12-09] MEDS: M.V.I.-12 10 ML, FOLIC ACID 1 MG, MAGNESIUM SULFATE 1 GM, THIAMINE 100 MG in NS 1,000 ML IV SCH (14:32)
--- NOTE | 2016-12-09 14:39 | Diag Imaging Result Doc PS360 ---
EXAM: CHEST-PORTABLE HISTORY: PICC line placement TECHNIQUE: Supine portable COMPARISON: A film taken earlier at 7:05 AM FINDINGS: Interval placement of a right-sided PICC line. The tip is actually difficult to see due to the technique, the patient's condition, and body habitus. I believe it overlies the right atrium. No change in endotracheal tube or nasogastric tube. No significant change in the lower lung infiltrates. IMPRESSION: Placement of a right-sided PICC line. The tip is difficult to see although I believe it overlies the right atrium. Electronically signed by Tacos Lama 12/09/2016 2:37 PM
--- NOTE | 2016-12-09 16:03 | CONSULTATION ---
DATE OF CONSULTATION: 12/09/2016 CONCLUSION: I agree with Dr. Jarrett that the patient has methicillin-resistant Staph aureus pneumonia. RECOMMENDATIONS: I agree with treating the patient with vancomycin. I think cefepime can be discontinued. DISCUSSION: The patient is intubated and sedated. He is unable to provide a history and no family member was present. The history was taken by reviewing the data in the computer. Apparently he was transferred. The patient was arrested by the police. After arriving in nursing home the patient became agitated and diaphoretic. He was brought to in an ambulance. He required intubation. Friends of the patient related to the medical staff that the patient takes crystal meth. was called to accept the patient in transfer from , which he did. PAST MEDICAL HISTORY: Positive for hypertension and diabetes, but family members reported that he did not take his medication. PAST SURGICAL HISTORY.: Unable to be obtained. FAMILY HISTORY: Unable to be obtained. REVIEW OF SYSTEMS: Unable to be obtained. ALLERGIES: The patient has no known allergies. LABORATORY STUDIES: Show a CBC with a white count of 17,430, hemoglobin 13.4, platelet count 380,000. Blood gases show a pH of 7.42, a pO2 of 98, a pCO2 of 42. Creatinine 0.8. GFR is greater than 60. The ALT was 51. Blood cultures are pending. Sputum here grew Methicillin- resistant Staph aureus. IMAGING: Chest x-ray shows bilateral infiltrates. HISTORY OF PRESENT ILLNESS: The patient has had fever. However his white count is decreasing. Also his chest x-ray is no worse which is encouraging because the chest x-ray always lags behind how the patient is doing clinically. Therefore, I think that the patient is actually responding to vancomycin. It could be days before all the patient's fever goes away. PHYSICAL EXAMINATION: Vital Signs: Temperature earlier was 101.4, now it is 99.9, pulse 123, respirations 13, blood pressure 189/99. General: This is an obese, middle-aged male who is in no acute distress. Head, eyes, ears, nose, and throat: He is intubated. No drainage is noted from the nose or ears. Neck: No meningismus. Extremities: There was edema in both legs. The patient has extensive tattoos on his arm. Lungs: Clear to auscultation. Cardiovascular: Heart rate was regular. Abdomen: Soft and nontender. Neurologic: Patient is obtunded. He did not respond to verbal stimuli. There was no tremor. Thank you for the consult. cc: Lexx Hernandez MD
--- NOTE | 2016-12-09 16:48 | CONSULTATION ---
DATE OF CONSULTATION: 12/09/2016 IMPRESSION: 1. Respiratory failure, hypoxemic. 2. Abnormal chest x-ray with right perihilar consolidation suggesting pneumonitis, possibly aspiration related. 3. Possible pulmonary edema but suspect more likely noncardiac in nature with left ventricular ejection fraction 55-60%. 4. Obesity. 5. Type 2 diabetes mellitus. 6. Hypertension. 7. Polysubstance abuse with possibility of overdose due to reported ingestion. 8. Transient atrial fibrillation reported. RECOMMENDATIONS: 1. Continue supportive care. 2. Intravenous diltiazem as needed to control heart rate with atrial fibrillation. 3. If atrial fibrillation persists, will consider taper use of amiodarone to suppress arrhythmia. HISTORY: This 41-year-old, white male with a past history of obesity, type 2 diabetes mellitus and hypertension was admitted on transfer from [facility] for further management of hypoxemic respiratory failure. He is not able to give any history as he is sedated and on a ventilator. Patient reportedly admitted to [facility] for drug overdose. He reportedly was brought from the local assisted with mental status changes. In the emergency room he was reportedly lethargic after receiving intravenous Valium for agitation. He was subsequently intubated and put on mechanical ventilator. He was subsequently transferred here for further care. There is no documented history of cardiac problems beyond hypertension. PAST MEDICAL HISTORY: 1. Obesity. 2. Type 2 diabetes mellitus. 3. Hypertension. ALLERGIES: No known allergies. CURRENT MEDICATIONS: As listed. SOCIAL HISTORY: The patient has a history of polysubstance abuse which reportedly includes crystal methamphetamine as well as marijuana. There is a past history of smoking. FAMILY HISTORY: Not obtainable from the patient. REVIEW OF SYSTEMS: Not obtainable from the patient. PHYSICAL EXAMINATION: General: Reveals an obese, adult male, intubated and sedated. Vital Signs: Blood pressure 189/99, heart rate 120, oxygen saturation 95%. HEENT Examination: Atraumatic, normocephalic. Mucous membranes moist. Neck: Supple without discernible jugular distention. No carotid bruits. Chest: Auscultation of the chest reveals coarse crackles in the right lateral chest. Chest otherwise demonstrates coarse breath sounds diffusely. Cardiac Examination: Regular rate and rhythm without appreciable murmur or gallop. Abdomen: Soft. Bowel sounds audible. Extremities: Cool without edema. DIAGNOSTIC DATA: ECG demonstrates sinus rhythm, right bundle branch block, left posterior fascicular block. Echocardiography reports normal left ventricular ejection fraction 55-60%. Right ventricular enlargement also reported with reduced right ventricular systolic function. cc: Boni Pryor MD
--- NOTE | 2016-12-09 17:46 | Diag Imaging Result Doc PS360 ---
EXAM: THORAX/ABDOMEN/PELVIS HISTORY: sepsis TECHNIQUE: CT chest with contrast. CT abdomen and pelvis with oral and intravenous contrast. Dose reduction protocol. COMPARISON: None. FINDINGS: Chest: There are dense infiltrates with air bronchograms in each lower lobe. There are smaller infiltrates in the right middle lobe and both upper lobes. There are small bilateral pleural effusions. Heart is not enlarged. No thoracic aortic aneurysm or dissection. Multiple small mediastinal lymph nodes. An endotracheal tube is in good position. Abdomen and pelvis: A nasogastric tube enters the stomach. There is a tiny amount of free fluid in the abdomen and pelvis. The gallbladder wall is thickened. This is frequently seen with ascites. Spleen is not enlarged. Normal pancreas. No focal hepatic abnormality. Normal adrenal glands. No renal masses. No hydronephrosis. Normal aorta. No bowel obstruction. Normal appendix. No abscess. A Madden catheter has the urinary bladder decompressed. Prostate is not enlarged. No pelvic mass. There are mildly prominent iliac and inguinal lymph nodes. There are small mesenteric nodes. IMPRESSION: Chest: Multifocal bilateral pneumonia most pronounced in the lower lobes. Abdomen and pelvis: 1. Tiny amount of free fluid in the abdomen and pelvis 2. Mildly prominent iliac and inguinal lymph nodes. 3. No bowel obstruction. No abscess. Electronically signed by Tacos Lama 12/09/2016 5:44 PM
[2016-12-09] MEDS: NEXIUM IV SCH (21:12)
[2016-12-10] MEDS: DUONEB (A & A) INH SCH ×6 (02:37→23:51)
[2016-12-10] MEDS: DIPRIVAN 1% 1,000 MG/100 ML BOTTLE IV SCH ×10 (03:34→23:23)
[2016-12-10] MEDS: NS 1,000 ML IV SCH (03:34)
[2016-12-10 04:31] LABS: ALLEN TEST YES; BE -1.2 mmoll (-3.0-3.0); BLOOD TYPE ARTERIAL; DRAW SITE R RADIAL; METHB 0.9 % (0.0-1.5); O2(CT) 19.9 mL/dL (15.0-23.0); PO2(98.6) 63 mmHg (60-100); SAMPLE BLOOD; SAO2 91.1 % (95.0-100.0); SRATE 12 BPM; THB 15.9 g/dL (11.5-17.4); TVOL 650 mL
[2016-12-10 04:32] LABS: PCO2(98.6) 75 mmHg (35-45)
[2016-12-10 04:33] LABS: MODALITY VENTILATOR
--- NOTE | 2016-12-10 06:07 | Diag Imaging Result Doc PS360 ---
EXAM: CHEST-PORTABLE HISTORY: dyspnea TECHNIQUE: Portable COMPARISON: 12/09/2016 FINDINGS: No change in the endotracheal tube, nasogastric tube, or right-sided PICC line. There are dense bilateral infiltrates. These are more pronounced in the mid left lung than they were on the prior exam. I believe there are also small pleural effusions. The heart remains mildly prominent. IMPRESSION: Mild interval worsening. Electronically signed by Tacos Lama 12/10/2016 6:05 AM
[2016-12-10] MEDS: NIMBEX 80 MG in NS 160 ML IV SCH ×3 (06:10→19:50)
[2016-12-10] MEDS: VANCOMYCIN 2 GM in NS 500 ML IV SCH (06:10)
[2016-12-10] MEDS: MUCOMYST 20% INH SCH ×2 (07:46→19:24)
[2016-12-10 08:03] LABS: HEMATOCRIT 43.6 % (42.0-52.0); MANUAL DIFF NEEDED? YES; MCHC 32.1 g/dL (33-37); MCV 93.6 FL (81-99); MPV 9.7 FL (7.4-10.4); PLT 390 X1000 (130-400); RBC 4.66 XMIL (4.7-6.1)
[2016-12-10 08:21] LABS: AGAP 12; BUN 25 mg/dL (8-22); CHLORIDE 98 mmol/L (98-107); COSMO 277; SODIUM 135 mmol/L (136-145); TCO2 25 mmol/L (25-35)
[2016-12-10 08:22] LABS: BANDS 2 % (0-1); LYMPHS 6 % (21-51); MONO 12 % (1-9); POTASSIUM 5.5 mmol/L (3.5-5.1)
[2016-12-10] MEDS ORDERED: LASIX IV ONE (09:33)
[2016-12-10] MEDS ORDERED: LASIX ONE (09:39)
[2016-12-10] MEDS: CARDIZEM 100 MG/NS 100 MG/100 ML IVPB IV SCH ×2 (09:42→19:17)
--- NOTE | 2016-12-10 10:59 | PROGRESS NOTE ---
DATE: 12/10/2016 SUBJECTIVE: This patient is still on mechanical ventilation and sedated. No acute events overnight. He used to have A-fib RVR but right now is in normal sinus and the heart rate is controlled. Blood pressure is better at 134/94. OBJECTIVE: Vital Signs: Temperature 99.1 degrees, pulse 90, respiratory rate 16, blood pressure 154/98, oxygen saturation 95% on mechanical ventilation 100% FiO2. HEENT: Head normocephalic. No trauma. PERRLA. Neck: Supple. No JVD. No masses. Central trachea. Chest: Decreased breath sounds globally. Cardiovascular: RRR. No murmurs. Abdomen: Soft, nondistended. Extremities: No edema. No clubbing. Coldness. Neurological: The patient is sedated and intubated. LABORATORY: WBC 19.7, hemoglobin 14, hematocrit 43.6, platelets 390,000. Sodium 135, potassium 5.5, chloride 98, bicarbonate 25, BUN 25, creatinine 0.7, glucose 145, calcium 9. ASSESSMENT AND PLAN: 1. Acute hypoxemic respiratory failure. Continue with mechanical ventilation. Pulmonary department is following this patient. 2. Right perihilar consolidation secondary to methicillin-resistant Staphylococcus aureus pneumonia. Continue with vancomycin. Infectious disease department is following this patient. 3. Altered mental status, likely secondary to metabolic encephalopathy. 4. History of diabetes. Aware. Continue with the same management. 5. Hypertension. Better controlled. Continue with the same management. 6. Pulmonary edema with an echocardiogram that showed an ejection fraction of 55 to 60%. His right ventricle is dilated with reduced right ventricular systolic function, so this is likely secondary to diastolic congestive heart failure. Cardiology on board. 7. New onset atrial fibrillation with rapid ventricular response. Stable. Continue with the same management. At this moment he is in normal sinus with rate control. 8. Possible drug abuse. Will monitor. cc: Marek Parra MD
[2016-12-10] MEDS: LOVENOX SUBQ SCH (12:53)
[2016-12-10] MEDS: M.V.I.-12 10 ML, FOLIC ACID 1 MG, MAGNESIUM SULFATE 1 GM, THIAMINE 100 MG in NS 1,000 ML IV SCH (12:53)
--- NOTE | 2016-12-10 15:25 | PROGRESS NOTE ---
DATE: 12/10/2016 SUBJECTIVE: Patient continues on mechanical ventilation and is sedated. OBJECTIVE: Vital Signs: Blood pressure 130/90, heart rate 85 and regular with ECG monitor showing sinus rhythm. Oxygen saturation 99%. There is no significant jugular venous distention. Chest: Clear to auscultation anteriorly. Cardiac Exam: Reveals a regular rate and rhythm without appreciable murmur or gallop. There is no evidence of peripheral edema. Echocardiography indicates normal left ventricular ejection fraction 55-60%. Right ventricle reported as dilated with reduced right ventricular systolic function. LABORATORY DATA: Includes a white blood cell count of 19.7, hematocrit 43.6. Serial troponins less than 0.01. Repeat troponin less than 0.01. IMPRESSION: 1. Respiratory failure, hypoxemic. 2. Abnormal chest x-ray with right perihilar consolidation. Consider pneumonitis possibly aspiration related. 3. Possible pulmonary edema but suspect more likely noncardiac in nature given clinical presentation. 4. Transient atrial fibrillation yesterday. Patient continues in sinus rhythm. 5. Recent polysubstance abuse with possibility of overdose due to reported ingestion. 6. Type 2 diabetes mellitus. 7. Obesity. 8. Hypertension. RECOMMENDATIONS: 1. Continue supportive care and treatment for pneumonitis and probable ARDS. 2. Continue to monitor arrhythmias. 3. No additional cardiovascular studies at this time. We will be available for further consultation as needed. cc: Boni Pryor MD
--- NOTE | 2016-12-10 15:52 | Extremity Venous Study ---
PROCEDURE NAME: Venous U/S Bilateral Legs - 12/09/2016 TEST: Bilateral lower extremity venous imaging study. HISTORY: Patient is in respiratory failure on the vent. FINDINGS: Bilateral lower extremity venous images were accomplished. The common femoral, superficial femoral, deep femoral, popliteal, posterior tibial, and peroneal veins are identified. The greater saphenous are identified as well. The patient is on a ventilator and cannot respond to respiratory excursions. There is testing with augmentation of flow. There is non- compressibility of the right posterior tibial vein mid calf. There is also noncompressibility of the popliteal vein in the left leg. INTERPRETATION: Acute deep venous thrombosis involving the right posterior tibial vein and the left popliteal vein. cc: MD Jose Jones MD
[2016-12-10] MEDS: LACRI-LUBE OPH OINT BOTH EYES SCH ×2 (18:10→20:12)
--- NOTE | 2016-12-10 18:58 | PROGRESS NOTE ---
DATE: 12/10/2016 PRESENT ILLNESS: The patient has methicillin-resistant Staph aureus pneumonia. MEDICATIONS: The patient is on IV vancomycin. PHYSICAL EXAMINATION: Vital Signs: Temperature is 99.5 degrees, pulse 94, respirations 16, blood pressure 170/96. General: This is an ill-appearing, young male who is intubated and sedated. Ear, nose and throat: Patient is intubated with an orotracheal tube. Lungs: There were coarse rhonchi on the left side. The right side was clear. Cardiovascular: Heart rate was regular. Abdomen: Soft and nontender. Neurologic: The patient is sedated. LABORATORY AND X-RAY: Chest x-ray shows worsening of the patient's infiltrates. The patient's CBC for today shows that the white count is increased to 19,710, hemoglobin 14 and platelet count 390,000. The patient's blood gases show a pH of 7.2, PO2 of 63 and a pCO2 of 75. Creatinine 0.7. GFR is greater than 60. ASSESSMENT AND PLAN: 1. Patient has methicillin-resistant Staph aureus pneumonia. He is not improving on vancomycin therapy. My plan is to switch him to Zyvox. Comorbidities include that the patient has diabetes. He was put in detention. Patient also is a drug addict. cc: Lexx Hernandez MD
[2016-12-10] MEDS: ZYVOX 600 MG/D5W 600 MG/300 ML IVPB IV SCH (19:18)
[2016-12-10] MEDS: NEXIUM IV SCH (20:12)
[2016-12-11] MEDS: LOVENOX SUBQ SCH ×3 (00:14→23:13)
[2016-12-11] MEDS: DIPRIVAN 1% 1,000 MG/100 ML BOTTLE IV SCH ×16 (00:59→23:42)
[2016-12-11] MEDS: LACRI-LUBE OPH OINT BOTH EYES SCH ×6 (02:00→20:19)
[2016-12-11] MEDS: NIMBEX 80 MG in NS 160 ML IV SCH ×6 (02:34→21:47)
[2016-12-11] MEDS: DUONEB (A & A) INH SCH ×6 (03:52→23:12)
[2016-12-11] MEDS: NS 1,000 ML IV SCH (04:00)
[2016-12-11] MEDS: CARDIZEM 100 MG/NS 100 MG/100 ML IVPB IV SCH ×2 (04:09→17:23)
[2016-12-11 04:53] LABS: ALLEN TEST YES; BE -0.5 mmoll (-3.0-3.0); BLOOD TYPE ARTERIAL; DRAW SITE R RADIAL; METHB 1.1 % (0.0-1.5); O2(CT) 20.6 mL/dL (15.0-23.0); PCO2(98.6) 42 mmHg (35-45); PO2(98.6) 109 mmHg (60-100); SAMPLE BLOOD; SAO2 99.2 % (95.0-100.0); SRATE 16 BPM; THB 15.1 g/dL (11.5-17.4); TVOL 650 mL; pH(98.6) 7.38 (7.35-7.45)
[2016-12-11 04:54] LABS: MODALITY VENTILATOR
[2016-12-11 05:24] LABS: EOS# 0.37 X1000 (0.0-0.7); EOS% 1.8 % (0.0-10.0); HEMATOCRIT 44.2 % (42.0-52.0); HEMOGLOBIN 14.2 g/dL (14.0-18.0); IMM GRAN# 1.94 X1000 (0.0-0.04); IMM GRAN% 9.7 % (0.0-0.5); LYMPH# 1.08 X1000 (1.2-3.4); LYMPH% 5.4 % (20.5-51.1); MANUAL DIFF NEEDED? YES; MCH 29.8 PG (27-31); MCHC 32.1 g/dL (33-37); MCV 92.7 FL (81-99); MONO# 2.72 X1000 (0.11-0.59); MONO% 13.5 % (1.7-9.3); MPV 10.7 FL (7.4-10.4); NEUT% 68.6 % (42.2-75.2); PLT 463 X1000 (130-400); RBC 4.77 XMIL (4.7-6.1)
[2016-12-11 05:52] LABS: AGAP 10; BUN 21 mg/dL (8-22); CALCIUM 9.5 mg/dL (8.8-10.2); CHLORIDE 99 mmol/L (98-107); COSMO 284; POTASSIUM 3.5 mmol/L (3.5-5.1); SODIUM 140 mmol/L (136-145); TCO2 31 mmol/L (25-35)
[2016-12-11 06:47] LABS: BANDS 6 % (0-1); LYMPHS 6 % (21-51); MONO 2 % (1-9)
--- NOTE | 2016-12-11 07:19 | Diag Imaging Result Doc PS360 ---
EXAM: CHEST-PORTABLE INDICATION: dyspnea TECHNIQUE: One view COMPARISON: 12/10/2016 FINDINGS: Support tubes and lines are in stable positions. Inspiration is suboptimal. There are persistent bilateral infiltrates. There may have been marginal improvement during the interval. No new consolidation is identified. Cardiac silhouette is stable. IMPRESSION: Marginal improvement of dense bilateral infiltrates. Electronically signed by Davis Shabazz 12/11/2016 7:16 AM
[2016-12-11] MEDS: ZYVOX 600 MG/D5W 600 MG/300 ML IVPB IV SCH ×2 (07:34→20:19)
[2016-12-11] MEDS: MUCOMYST 20% INH SCH ×2 (08:00→19:12)
[2016-12-11 08:24] LABS: EOS# 0.28 X1000 (0.0-0.7); EOS% 1.4 % (0.0-10.0); HEMATOCRIT 43.6 % (42.0-52.0); HEMOGLOBIN 14.3 g/dL (14.0-18.0); IMM GRAN# 1.92 X1000 (0.0-0.04); IMM GRAN% 9.8 % (0.0-0.5); LYMPH# 0.84 X1000 (1.2-3.4); LYMPH% 4.3 % (20.5-51.1); MANUAL DIFF NEEDED? NO; MCH 30.1 PG (27-31); MCHC 32.8 g/dL (33-37); MCV 91.8 FL (81-99); MONO# 2.55 X1000 (0.11-0.59); MPV 9.7 FL (7.4-10.4); NEUT% 69.5 % (42.2-75.2); PLT 443 X1000 (130-400); RBC 4.75 XMIL (4.7-6.1)
[2016-12-11 08:52] LABS: AGAP 13; BUN 22 mg/dL (8-22); CALCIUM 9.2 mg/dL (8.8-10.2); CHLORIDE 99 mmol/L (98-107); COSMO 284; POTASSIUM 3.2 mmol/L (3.5-5.1); SODIUM 139 mmol/L (136-145); TCO2 27 mmol/L (25-35)
[2016-12-11] MEDS: LASIX IV SCH ×3 (10:46→21:48)
--- NOTE | 2016-12-11 11:13 | PROGRESS NOTE ---
DATE: 12/11/2016 SUBJECTIVE: This patient is lying in bed, sedated and paralyzed on mechanical ventilator. No acute issues overnight as per nursing staff. He had atrial fibrillation with RVR like 2-3 days ago but none since sinus rhythm. OBJECTIVE: Vital Signs: Temperature 99.3 degrees, heart rate 94, respiratory rate 16, blood pressure 160/93. O2 saturation 92% on mechanical ventilator. General Examination: This is a 41- year-old male, lying in bed, in no acute distress, intubated. HEENT: Head is normocephalic, atraumatic. Some erythema in right conjunctiva. Neck: No JVD noted. No carotid bruits. No lymphadenopathy. No thyromegaly. Cardiovascular: S1 and S2 heard. Tachycardic. No murmurs, gallops, or rubs. Regular rate and rhythm. Respiratory: Decreased breath sounds globally. Patient is intubated. The patient is not using any accessory muscles or having work of breathing. Abdomen: Soft, a little bit distended, bowel sounds present. Extremities: No clubbing, cyanosis, or edema. Peripheral pulses present. Neurological: Patient is sedated, paralyzed and intubated. LABORATORY DATA: White cell count 19.67. ABG shows pH 7.38 with pCO2 42, PO2 109. BMP is remarkable for potassium 3.2. ASSESSMENT AND PLAN: 1. Acute hypoxemic respiratory failure. We will continue with mechanical ventilation. Patient currently paralyzed. Pulmonary is following this patient. 2. Multifocal pneumonia secondary to methicillin-resistant Staphylococcus aureus. The patient is being followed by Dr. Lexx Hernandez from Infectious disease. They have started this patient on Zyvox IV. We will continue with same management. 3. Altered mental status secondary to metabolic encephalopathy. Aware. 4. History of diabetes mellitus. The blood sugar has been stable between 140 and 150, so we will continue with the same management. 5. Paroxysmal atrial fibrillation with rapid ventricular response. At this time, this patient's heart rate is in sinus rhythm. Dr. Pryor from Cardiology had been following this patient but they have signed off. cc: Riki La MD
[2016-12-11] MEDS: M.V.I.-12 10 ML, FOLIC ACID 1 MG, MAGNESIUM SULFATE 1 GM, THIAMINE 100 MG in NS 1,000 ML IV SCH (13:36)
[2016-12-11] MEDS: TYLENOL PO PRN (16:40)
--- NOTE | 2016-12-11 17:25 | PROGRESS NOTE ---
DATE: 12/11/2016 PRESENT ILLNESS: The patient has a methicillin-resistant Staph aureus pneumonia. MEDICATIONS: This is day 1 on Zyvox. PHYSICAL EXAMINATION: Vital Signs: Temperature is 99.5 degrees, pulse 102, respiration is 18, blood pressure 153/95. General: This is an ill-appearing young male who is intubated and sedated. CV: Regular heart rate. Lungs: Diminished breath sounds and bilateral rhonchi. Abdomen: Slightly distended but soft. Did not appear to be tender. LAB AND X-RAY: The patient's blood gases show a pH of 7.38, a PO2 of 109, a pCO2 of 42. The patient patient's CBC shows a white count of 19,670, hemoglobin 14.3, and platelet count 443,000. Creatinine is 0.5. GFR is greater than 60. Chest x-ray shows marginal improvement in the bilateral infiltrates. ASSESSMENT AND PLAN: Patient has methicillin-resistant Staphylococcus aureus pneumonia. He may be slightly improved since switching to Zyvox. COMORBIDITIES: In this patient include diabetes, drug addict, and patient was in halfway. cc: Lexx Hernandez MD
[2016-12-11] MEDS: NEXIUM IV SCH (20:19)
[2016-12-11] MEDS: APRESOLINE IV PRN (21:48)
[2016-12-11] MEDS ORDERED: NS IV SCH (23:00)
[2016-12-11] MEDS ORDERED: NIMBEX IV SCH (23:00)
[2016-12-12] MEDS: NIMBEX IV SCH ×4 (00:05→23:50)
[2016-12-12] MEDS: NS IV SCH ×4 (00:05→23:50)
[2016-12-12] MEDS: DIPRIVAN 1% 1,000 MG/100 ML BOTTLE IV SCH ×15 (01:08→21:59)
[2016-12-12] MEDS: LACRI-LUBE OPH OINT BOTH EYES SCH ×7 (01:08→20:30)
[2016-12-12] MEDS: NS 1,000 ML IV SCH (02:32)
[2016-12-12] MEDS: DUONEB (A & A) INH SCH ×5 (03:53→19:39)
[2016-12-12] MEDS: CARDIZEM 100 MG/NS 100 MG/100 ML IVPB IV SCH ×2 (04:39→15:29)
[2016-12-12 04:49] LABS: ALLEN TEST YES; BLOOD TYPE ARTERIAL; DRAW SITE R RADIAL; METHB 0.9 % (0.0-1.5); O2(CT) 25.2 mL/dL (15.0-23.0); PO2(98.6) 74 mmHg (60-100); SAMPLE BLOOD; SAO2 95.3 % (95.0-100.0); SRATE 16 BPM; THB 19.3 g/dL (11.5-17.4); TVOL 470 mL; pH(98.6) 7.27 (7.35-7.45)
[2016-12-12 04:50] LABS: MODALITY VENTILATOR; PCO2(98.6) 73 mmHg (35-45)
[2016-12-12 05:15] LABS: BASO% 1.5 % (0.0-0.8); EOS# 0.49 X1000 (0.0-0.7); EOS% 2.4 % (0.0-10.0); HEMATOCRIT 43.8 % (42.0-52.0); HEMOGLOBIN 13.3 g/dL (14.0-18.0); IMM GRAN# 2.53 X1000 (0.0-0.04); IMM GRAN% 12.2 % (0.0-0.5); LYMPH# 0.99 X1000 (1.2-3.4); LYMPH% 4.8 % (20.5-51.1); MANUAL DIFF NEEDED? YES; MCHC 30.4 g/dL (33-37); MCV 92.2 FL (81-99); MONO# 2.64 X1000 (0.11-0.59); MONO% 12.7 % (1.7-9.3); MPV 10.5 FL (7.4-10.4); NEUT% 66.4 % (42.2-75.2); PLT 488 X1000 (130-400); RBC 4.75 XMIL (4.7-6.1)
[2016-12-12 05:41] LABS: AGAP 13; ALBUMIN 2.3 g/dL (3.5-5.0); ALKALINE PHOSPHATASE 102 U/L (32-122); BUN 31 mg/dL (8-22); CALCIUM 8.8 mg/dL (8.8-10.2); CHLORIDE 98 mmol/L (98-107); COSMO 286; GOT 71 U/L (10-34); GPT 207 U/L (10-44); MAGNESIUM 2.5 mg/dL (1.5-2.7); POTASSIUM 4.7 mmol/L (3.5-5.1); SODIUM 139 mmol/L (136-145); TCO2 28 mmol/L (25-35); TOTAL BILIRUBIN 0.45 mg/dL (0.20-1.00)
[2016-12-12 06:29] LABS: BANDS 3 % (0-1); LYMPHS 7 % (21-51)
[2016-12-12] MEDS: ZYVOX 600 MG/D5W 600 MG/300 ML IVPB IV SCH ×2 (07:44→20:30)
--- NOTE | 2016-12-12 08:03 | Diag Imaging Result Doc PS360 ---
EXAM: CHEST-PORTABLE - 12/12/2016 HISTORY: dyspnea TECHNIQUE: Portable chest 0535 COMPARISON: 12/11/2016 FINDINGS: Endotracheal tube, nasogastric tube, and PICC remain in place. There has been some increase in infiltrate at the left upper lobe. There has been interval decrease in infiltrate in the right upper lobe. Bibasilar infiltrates appear grossly stable. There are no other acute changes identified. IMPRESSION: Bilateral infiltrates which are overall increased on the left and mildly decreased on the right. Electronically signed by Robb Beckham 12/12/2016 8:00 AM
[2016-12-12] MEDS: MUCOMYST 20% INH SCH ×2 (08:25→19:39)
[2016-12-12] MEDS: LASIX IV SCH ×3 (09:37→21:58)
--- NOTE | 2016-12-12 09:42 | PROGRESS NOTE ---
DATE: 12/12/2016 SUBJECTIVE: The patient is lying in bed sedated, paralyzed, and intubated. As per Nursing overnight, this patient had an episode of desaturation when O2 sat dropped to 83. Dr. Josef leavitt Pulmonary has adjusted the vent settings. By now, this patient's O2 sat is above 90. OBJECTIVE: Vital signs: Temperature 98.8, heart rate 90, respiratory 16, blood pressure 154/99, O2 sat 95% on mechanical ventilator. General: This is a 41-year-old obese male lying in bed in no acute distress, sedated, intubated, and paralyzed. HEENT: Head is normocephalic and atraumatic. Some erythema still present in right conjunctiva. Neck: No JVD noted, no carotid bruits, no lymphadenopathy, no thyromegaly. Cardiovascular: S1, S2 heard, tachycardic, no murmurs, gallops, or rubs, and regular rate and rhythm. Respiratory: Decreased breath sounds globally. Patient intubated. The patient is not using any accessory muscles or having work of breathing. Abdomen: Soft, nontender, a little bit distended. Bowel sounds present, no organomegaly noted. Extremities: No clubbing, cyanosis, or edema. Peripheral pulses present in both legs. Neurological: Patient is sedated, paralyzed, and intubated. LABORATORY DATA: White cell count 20.79, hemoglobin 13.3, hematocrit 43.8, platelets 488. ABG shows pH 7.27 with pCO2 of 73. BMP unremarkable. ASSESSMENT AND PLAN: 1. Acute hypoxemic respiratory failure. Patient even on ventilator is still having some episodes of desaturation. Patient currently paralyzed. Dr. Josef leavitt Pulmonary is following. 2. Multifocal pneumonia secondary to methicillin-resistant Staphylococcus aureus (MRSA). The patient has been started on Zyvox IV. Will continue with same management. 3. Altered mental status secondary to metabolic encephalopathy. That condition is still going on. 4. History of diabetes mellitus. She was having blood sugars below 200 all the time. Will continue with same management. 5. Paroxysmal atrial fibrillation. The patient is now in sinus rhythm, and heart rate is controlled. Overall, this patient is not doing good, even though on ventilator. ABGs did not show any really good gas exchange. I had a meeting with family today and I explained to them his poor prognosis. I talked by phone with aunt who is a nurse who mentioned if he continues to decline family would be open to talk about withdrawal of care. At this time, considering this is a young patient with no major comorbidities, I prefer to wait until next wednesday to talk about code status. Critical care time : 60 minutes cc: Riki La MD MTDD
[2016-12-12] MEDS: LOVENOX SUBQ SCH (11:16)
[2016-12-12] MEDS: M.V.I.-12 10 ML, FOLIC ACID 1 MG, MAGNESIUM SULFATE 1 GM, THIAMINE 100 MG in NS 1,000 ML IV SCH (13:09)
[2016-12-12] MEDS: NEXIUM IV SCH (20:30)
[2016-12-12] MEDS: SODIUM CHLORIDE 0.9% INJ SCH (20:30)
[2016-12-13] MEDS: DUONEB (A & A) INH SCH ×7 (00:01→22:58)
[2016-12-13] MEDS: LOVENOX SUBQ SCH ×3 (01:00→23:13)
[2016-12-13] MEDS: NS 1,000 ML IV SCH (01:10)
[2016-12-13] MEDS: CARDIZEM 100 MG/NS 100 MG/100 ML IVPB IV SCH ×3 (01:11→18:54)
[2016-12-13] MEDS: LACRI-LUBE OPH OINT BOTH EYES SCH ×6 (01:11→20:01)
[2016-12-13] MEDS: DIPRIVAN 1% 1,000 MG/100 ML BOTTLE IV SCH ×14 (01:17→23:11)
[2016-12-13] MEDS: LASIX IV SCH ×4 (02:36→21:46)
[2016-12-13 04:47] LABS: ALLEN TEST YES; BLOOD TYPE ARTERIAL; DRAW SITE R RADIAL; O2(CT) 18.2 mL/dL (15.0-23.0); PO2(98.6) 53 mmHg (60-100); SAMPLE BLOOD; SAO2 89.2 % (95.0-100.0); SRATE 16 BPM; THB 14.9 g/dL (11.5-17.4); TVOL 470 mL; pH(98.6) 7.35 (7.35-7.45)
[2016-12-13 04:48] LABS: MODALITY VENTILATOR; PCO2(98.6) 75 mmHg (35-45)
[2016-12-13 06:17] LABS: BASO% 2.2 % (0.0-0.8); EOS# 0.21 X1000 (0.0-0.7); HEMATOCRIT 43.6 % (42.0-52.0); HEMOGLOBIN 14.1 g/dL (14.0-18.0); IMM GRAN# 2.66 X1000 (0.0-0.04); IMM GRAN% 12.1 % (0.0-0.5); LYMPH# 1.45 X1000 (1.2-3.4); LYMPH% 6.6 % (20.5-51.1); MANUAL DIFF NEEDED? YES; MCH 29.9 PG (27-31); MCHC 32.3 g/dL (33-37); MCV 92.4 FL (81-99); MONO# 2.94 X1000 (0.11-0.59); MONO% 13.4 % (1.7-9.3); MPV 10.1 FL (7.4-10.4); NEUT% 64.7 % (42.2-75.2); PLT 526 X1000 (130-400); RBC 4.72 XMIL (4.7-6.1)
[2016-12-13] MEDS: MORPHINE IV PRN (06:22)
[2016-12-13 07:15] LABS: AGAP 16; ALBUMIN 2.6 g/dL (3.5-5.0); ALKALINE PHOSPHATASE 112 U/L (32-122); BUN 33 mg/dL (8-22); CALCIUM 8.9 mg/dL (8.8-10.2); CHLORIDE 96 mmol/L (98-107); COSMO 300; GOT 63 U/L (10-34); GPT 167 U/L (10-44); SODIUM 146 mmol/L (136-145); TCO2 34 mmol/L (25-35); TOTAL BILIRUBIN 0.44 mg/dL (0.20-1.00); TOTAL PROTEIN 6.8 g/dL (6.3-8.3)
[2016-12-13 07:37] LABS: BANDS 6 % (0-1); LYMPHS 6 % (21-51); MONO 2 % (1-9)
--- NOTE | 2016-12-13 07:46 | Diag Imaging Result Doc PS360 ---
EXAM: CHEST-PORTABLE - 12/13/2016 HISTORY: dyspnea TECHNIQUE: Portable chest 0530 COMPARISON: 12/12/2016 FINDINGS: Endotracheal tube remains in place with its tip approximately 8 cm above the bre. There is nasogastric tube which can be followed to the stomach. PICC remains in place. There are bilateral infiltrates which appear stable on the right and mildly decreased on the left. There is no pneumothorax identified. Heart size appears within normal limits. IMPRESSION: Bilateral infiltrates, stable on the right and mildly decreased on the left compared to prior. Electronically signed by Robb Beckham 12/13/2016 7:43 AM
[2016-12-13] MEDS: ZYVOX 600 MG/D5W 600 MG/300 ML IVPB IV SCH ×2 (07:57→19:48)
[2016-12-13] MEDS: MUCOMYST 20% INH SCH ×2 (08:27→20:05)
[2016-12-13] MEDS: D5W 1,000 ML IV SCH (10:29)
[2016-12-13] MEDS: POTASSIUM CHLORIDE 20% LIQUID NG SCH ×2 (10:30→17:30)
--- NOTE | 2016-12-13 10:57 | PROGRESS NOTE ---
DATE: 12/13/2016 SUBJECTIVE: Patient is lying in bed, sedated and paralyzed, and intubated. As per nursing staff, last night and also this morning, patient had episodes of desaturation when O2 saturations dropped to the low 50s. No other issues overnight. OBJECTIVE: Vital Signs: Temperature 99.1 degrees, heart rate 92, respiratory rate 16, blood pressure 187/92, O2 saturation 92% on mechanical ventilator. General Examination: This is a 41- year-old, obese, male, lying in bed, in no acute distress. HEENT: Head is normocephalic and atraumatic. Some edema is still present in the right conjunctivae. Neck: Supple. No JVD noted. No carotid bruits. No lymphadenopathy. Cardiovascular Examination: S1 and S2 heard. Tachycardic. No murmurs, gallops, or rubs. Regular rate and rhythm. Respiratory Examination: Decreased breath sounds globally. Patient is intubated. Patient is not using any accessory muscles or having work of breathing. Abdomen: Soft, nontender to palpation. Bowel sounds present. No organomegaly. Extremities: No clubbing, cyanosis, or edema. Neurological Examination: Patient is sedated, paralyzed, and intubated. Laboratory Data: The white cell count is 21.9, hemoglobin 14.1, hematocrit 43.6 , with platelets of 520,000. ABG shows a pH of 7.31, with pCO2 of 75, and PO2 of 53 on ventilator. Sodium 146, potassium 3. ASSESSMENT AND PLAN: 1. Acute hypoxic respiratory failure secondary to acute respiratory distress syndrome. Patient is on ventilator. He is still having some episodes of desaturation on ventilator today morning. Patient is paralyzed now. Dr. Bahena from pulmonary is following. 2. Multifocal pneumonia secondary to methicillin-resistant Staphylococcus aureus. The patient has been on Zyvox and we will continue with the same management. WBC is still high. 3. Altered mental status secondary to metabolic encephalopathy. That condition of course is still difficult to evaluate because this patient is paralyzed. 4. History of diabetes mellitus, aware. 5. Paroxysmal atrial fibrillation. Patient is back to irregularly irregular heart rhythm so the patient has been started on Cardizem drip. cc: Riki La MD [facility]
[2016-12-13] MEDS: M.V.I.-12 10 ML, FOLIC ACID 1 MG, MAGNESIUM SULFATE 1 GM, THIAMINE 100 MG in NS 1,000 ML IV SCH (12:58)
[2016-12-13] MEDS: NS IV SCH ×2 (15:41→22:39)
[2016-12-13] MEDS: NIMBEX IV SCH ×2 (15:41→22:39)
[2016-12-13] MEDS: SODIUM CHLORIDE 0.9% INJ SCH (20:00)
[2016-12-13] MEDS: NEXIUM IV SCH (20:00)
[2016-12-14] MEDS: DIPRIVAN 1% 1,000 MG/100 ML BOTTLE IV SCH ×12 (02:37→23:38)
[2016-12-14] MEDS: LACRI-LUBE OPH OINT BOTH EYES SCH ×6 (02:38→21:04)
[2016-12-14] MEDS: D5W 1,000 ML IV SCH ×2 (02:39→22:38)
[2016-12-14] MEDS: DUONEB (A & A) INH SCH ×6 (03:22→22:57)
[2016-12-14] MEDS: CARDIZEM 125/NS 125 MG/125 ML IVPB IV SCH ×2 (04:01→15:16)
[2016-12-14] MEDS: NS IV SCH ×5 (04:04→21:32)
[2016-12-14] MEDS: NIMBEX IV SCH ×5 (04:04→21:32)
[2016-12-14] MEDS: LASIX IV SCH (04:32)
[2016-12-14] MEDS: MORPHINE IV PRN ×4 (04:52→20:09)
[2016-12-14 05:19] LABS: ALLEN TEST YES; BE 14.7 mmoll (-3.0-3.0); BLOOD TYPE ARTERIAL; DRAW SITE R RADIAL; METHB 1.2 % (0.0-1.5); O2(CT) 20.2 mL/dL (15.0-23.0); PCO2(98.6) 73 mmHg (35-45); PO2(98.6) 54 mmHg (60-100); SAMPLE BLOOD; SRATE 16 BPM; THB 16.4 g/dL (11.5-17.4); TVOL 470 mL; pH(98.6) 7.39 (7.35-7.45)
[2016-12-14 05:20] LABS: MODALITY VENTILATOR
[2016-12-14 05:58] LABS: BASO% 1.2 % (0.0-0.8); EOS# 0.32 X1000 (0.0-0.7); EOS% 1.4 % (0.0-10.0); HEMATOCRIT 42.9 % (42.0-52.0); HEMOGLOBIN 13.5 g/dL (14.0-18.0); IMM GRAN# 2.74 X1000 (0.0-0.04); IMM GRAN% 11.9 % (0.0-0.5); LYMPH# 1.71 X1000 (1.2-3.4); LYMPH% 7.4 % (20.5-51.1); MANUAL DIFF NEEDED? YES; MCH 29.7 PG (27-31); MCHC 31.5 g/dL (33-37); MCV 94.5 FL (81-99); MONO# 3.14 X1000 (0.11-0.59); MONO% 13.6 % (1.7-9.3); NEUT% 64.5 % (42.2-75.2); PLT 557 X1000 (130-400); RBC 4.54 XMIL (4.7-6.1)
[2016-12-14 07:04] LABS: BANDS 2 % (0-1); EOS 2 % (1-10); LYMPHS 8 % (21-51); MONO 12 % (1-9)
--- NOTE | 2016-12-14 07:17 | Diag Imaging Result Doc PS360 ---
EXAM: CHEST-PORTABLE HISTORY: dyspnea TECHNIQUE: Erect AP portable chest at 0540 COMMENT: There is an endotracheal tube with its tip at thoracic inlet. There is alveolar opacity throughout both lungs particularly in the left upper lobe. There is pleural fluid on the right. The volume of pleural fluid on the right may be worse than on 12/13/2016, however the pulmonary edema has improved somewhat on the right. IMPRESSION: Pulmonary edema and/or pneumonia slightly improved. Right pleural effusion. Electronically signed by Shahram Christopher 12/14/2016 7:14 AM
[2016-12-14] MEDS: MUCOMYST 20% INH SCH ×2 (07:36→19:26)
[2016-12-14] MEDS: ZYVOX 600 MG/D5W 600 MG/300 ML IVPB IV SCH ×2 (08:06→20:20)
[2016-12-14] MEDS ORDERED: LASIX IV ONE ×2 (08:34→20:34)
[2016-12-14 08:55] LABS: AGAP 10; ALBUMIN 2.5 g/dL (3.5-5.0); ALKALINE PHOSPHATASE 98 U/L (32-122); BUN 34 mg/dL (8-22); CALCIUM 8.7 mg/dL (8.8-10.2); CHLORIDE 95 mmol/L (98-107); COSMO 299; GOT 53 U/L (10-34); GPT 134 U/L (10-44); MAGNESIUM 2.3 mg/dL (1.5-2.7); POTASSIUM 4.2 mmol/L (3.5-5.1); SODIUM 145 mmol/L (136-145); TCO2 40 mmol/L (25-35); TOTAL BILIRUBIN 0.81 mg/dL (0.20-1.00); TOTAL PROTEIN 5.5 g/dL (6.3-8.3)
[2016-12-14] MEDS: LOVENOX SUBQ SCH (11:36)
[2016-12-14] MEDS: M.V.I.-12 10 ML, FOLIC ACID 1 MG, MAGNESIUM SULFATE 1 GM, THIAMINE 100 MG in NS 1,000 ML IV SCH (13:15)
[2016-12-14] MEDS: NS 500 ML IV SCH (14:30)
--- NOTE | 2016-12-14 14:44 | PROGRESS NOTE ---
DATE: 12/14/2016 SUBJECTIVE: Patient is lying in bed, sedated, paralyzed, and intubated. As per nursing staff, he is still having O2 saturation drops. No other issues as per nurse overnight. OBJECTIVE: Temperature 99.7 degrees, heart rate 100, respiratory rate 16, blood pressure 149/83, O2 saturation 85% on mechanical ventilator. General: This is a 41-year-old, obese male, lying in bed, in no acute distress. HEENT: Head is normocephalic, atraumatic. There is some erythema still present in the right conjunctivae. Neck: Supple. No JVD noted. No carotid bruits. No lymphadenopathy. No thyromegaly. Cardiovascular: S1, S2 heard. Tachycardic. No murmurs, gallops, or rubs. Respiratory: Decreased breath sounds globally. Patient intubated. Patient is not using any accessory muscles or having work of breathing. Abdomen: Soft. Nontender to palpation. Bowel sounds present. No organomegaly. Extremities: No clubbing, cyanosis, or edema. Peripheral pulses present in both legs. Neurological: Patient is sedated, paralyzed, and intubated. Not possible to perform any neurological exam. Pupils equal and round reactive to light and accommodation. LABORATORY DATA: White cell count 23.1, hemoglobin 13.5, hematocrit 42.9, platelets 567,000. ABG shows pH 7.39, with pCO2 of 73, PO2 54. BMP unremarkable. ASSESSMENT AND PLAN: 1. Acute hypoxemic respiratory failure secondary to acute respiratory distress syndrome. Patient is on ventilator. Unfortunately, the ABG does not show a good gas exchange and now we are seeing a high CO2 that last 2-[address] Ibarra from pulmonary is following this patient. The patient has been paralyzed because of the low oxygenation. 2. Multifocal pneumonia secondary to methicillin-resistant Staphylococcus aureus. Patient is on Zyvox, although the white cell count continues to be really high, in the range of 20,000. Dr. Hernandez from infectious disease is following this patient. 3. Metabolic encephalopathy. The patient is sedated, intubated, and paralyzed. 4. Paroxysmal atrial fibrillation. Patient was started on Cardizem drip yesterday. Now the heart rate is better controlled. We will continue with the same management. 5. Overall, the prognosis on this patient is not good. Still having some episodes of desaturation while he is on the ventilator. Also ABG shows hypercapnic respiratory failure. In any case, will continue with IV medications. Will follow recommendations from pulmonary. cc: Riki La MD
--- NOTE | 2016-12-14 16:58 | PROGRESS NOTE ---
DATE: 12/14/2016 SUBJECTIVE: The patient has methicillin-resistant Staph aureus pneumonia. MEDICATIONS: Patient has been on Zyvox now for a total of 4 days. OBJECTIVE: Vital Signs: Temperature is 99.7 degrees, pulse 100, respirations 16, blood pressure 149/83. Generally: This is an ill-appearing, obese, middle-aged male. He is intubated and sedated. Lungs: Bilateral rhonchi. Cardiovascular: Heart rate is regular. Abdomen: Soft and nontender. It is somewhat protuberant. LAB AND X-RAY STUDIES: CBC today shows a white count of 23,100, hemoglobin 13.3, and platelet count 557,000. Blood gases show a pH of 7.39, pO2 of 54, pCO2 of 73. Chest x-ray shows improvement in the pneumonia and/or edema parts of the lungs. Creatinine 0.8. GFR is greater than 60. ASSESSMENT AND PLAN: Patient has methicillin-resistant Staph aureus. PLAN: To continue his Zyvox as a single agent at this time. The patient's comorbidities include diabetes, drug addiction, and necessary to be in halfway. cc: Lexx Hernandez MD
--- NOTE | 2016-12-14 17:05 | PROGRESS NOTE ---
DATE: 12/14/2016 SUBJECTIVE: The patient has a methicillin-resistant Staph aureus pneumonia. MEDICATIONS: This is day 4 of treatment with Zyvox. OBJECTIVE: Vital Signs: Temperature is 99.7 degrees, pulse 100, respirations 16, blood pressure 149/83. General: This is an ill-appearing young male who is in no acute distress. He is intubated and sedated. Lungs: there were bilateral rhonchi. Cardiovascular: Heart rate is regular and rapid. Abdomen: Slightly distended but soft and it does not appear to be tender. Integument: No rash noted. Extremities: Patient has a PICC in place. The site is not erythematous or draining. LAB AND X-RAY: Chest x-ray shows improvement in the pneumonia. Creatinine 0.8. GFR is greater than 60. CBC shows a white count of 23,100, hemoglobin 13.5, and platelet count 557,000. Blood gases show a pH of 7.39, pO2 of 54, pCO2 of 73. ASSESSMENT AND PLAN: Patient has methicillin-resistant Staphylococcus aureus pneumonia. PLAN: I plan to continue his Zyvox. The patient's comorbidities include diabetes mellitus, drug addiction, and being put in alf. cc: Lexx Hernandez MD
[2016-12-14 18:27] LABS: URINE CULTURE NEEDED? NO; URINE MICRO REVIEW NEEDED? NO; URINE SOURCE CATH
[2016-12-14 18:29] LABS: BILIRUBIN URINE NEGATIVE (NEGATIVE); BLOOD URINE NEGATIVE (NEGATIVE); COLOR YELLOW; GLUCOSE URINE NEGATIVE (NEGATIVE); LEUKOCYTES URINE NEGATIVE (NEGATIVE); NITRITE URINE NEGATIVE (NEGATIVE); PROTEIN URINE TRACE mg/dL (NEGATIVE); SP GRAVITY URINE 1.022; TURBIDITY URINE CLEAR (CLEAR); UROBILINOGEN URINE NORMAL (NORMAL)
[2016-12-14 18:31] LABS: UR EPITHELIAL CELLS <10 /HPF (<10); URINE BACTERIA NEGATIVE /HPF; URINE RBC <10 /HPF (<10); URINE WBC <10 /HPF (<10)
[2016-12-14] MEDS: NEXIUM IV SCH (21:03)
[2016-12-14] MEDS: SODIUM CHLORIDE 0.9% INJ SCH (21:05)
[2016-12-15] MEDS: MORPHINE IV PRN ×2 (00:03→04:57)
[2016-12-15] MEDS: LOVENOX SUBQ SCH ×3 (00:05→23:09)
[2016-12-15] MEDS: LACRI-LUBE OPH OINT BOTH EYES SCH ×6 (00:58→21:12)
[2016-12-15] MEDS: NIMBEX IV SCH ×3 (01:05→08:33)
[2016-12-15] MEDS: NS IV SCH ×3 (01:05→08:33)
[2016-12-15] MEDS: DIPRIVAN 1% 1,000 MG/100 ML BOTTLE IV SCH ×13 (01:06→23:07)
[2016-12-15] MEDS: DUONEB (A & A) INH SCH ×6 (02:45→22:51)
[2016-12-15] MEDS: CARDIZEM 125/NS 125 MG/125 ML IVPB IV SCH ×2 (04:20→15:25)
[2016-12-15 04:29] LABS: ALLEN TEST YES; BE 12.8 mmoll (-3.0-3.0); BLOOD TYPE ARTERIAL; DRAW SITE R RADIAL; METHB 1.1 % (0.0-1.5); O2(CT) 18.4 mL/dL (15.0-23.0); SAMPLE BLOOD; SAO2 80.9 % (95.0-100.0); SRATE 16 BPM; THB 16.7 g/dL (11.5-17.4); TVOL 470 mL; pH(98.6) 7.23 (7.35-7.45)
[2016-12-15 04:30] LABS: PCO2(98.6) 112 mmHg (35-45)
[2016-12-15 04:31] LABS: MODALITY VENTILATOR; PO2(98.6) 49 mmHg (60-100)
[2016-12-15 05:37] LABS: EOS# 0.11 X1000 (0.0-0.7); EOS% 0.6 % (0.0-10.0); HEMATOCRIT 52.4 % (42.0-52.0); HEMOGLOBIN 17.2 g/dL (14.0-18.0); MANUAL DIFF NEEDED? YES; MCH 31.3 PG (27-31); MCHC 32.8 g/dL (33-37); MCV 95.4 FL (81-99); MONO# 1.79 X1000 (0.11-0.59); MONO% 10.2 % (1.7-9.3); PLT 354 X1000 (130-400); RBC 5.49 XMIL (4.7-6.1)
[2016-12-15 06:18] LABS: AGAP 10; ALBUMIN 2.6 g/dL (3.5-5.0); ALKALINE PHOSPHATASE 101 U/L (32-122); BUN 36 mg/dL (8-22); CALCIUM 9.1 mg/dL (8.8-10.2); CHLORIDE 95 mmol/L (98-107); COSMO 292; GOT 61 U/L (10-34); GPT 123 U/L (10-44); POTASSIUM 4.9 mmol/L (3.5-5.1); SODIUM 142 mmol/L (136-145); TCO2 37 mmol/L (25-35); TOTAL BILIRUBIN 0.97 mg/dL (0.20-1.00); TOTAL PROTEIN 6.8 g/dL (6.3-8.3)
[2016-12-15 07:18] LABS: BANDS 8 % (0-1); LYMPHS 8 % (21-51); MONO 4 % (1-9)
--- NOTE | 2016-12-15 07:23 | Diag Imaging Result Doc PS360 ---
EXAM: CHEST-PORTABLE HISTORY: dyspnea TECHNIQUE: AP portable erect at 0530 COMMENT: There is a right pleural effusion. There is alveolar opacity bilaterally worse on the left than the right. This was also the case on the previous study of 12/14/2016. There does appear to be some worsening of alveolar opacity in the right base compared to the previous study. IMPRESSION: Slight worsening in pulmonary edema. Electronically signed by Shahram Christopher 12/15/2016 7:20 AM
[2016-12-15] MEDS: MUCOMYST 20% INH SCH ×2 (07:47→18:51)
[2016-12-15] MEDS: ZYVOX 600 MG/D5W 600 MG/300 ML IVPB IV SCH ×2 (08:15→21:11)
[2016-12-15] MEDS: LASIX IV SCH (08:15)
[2016-12-15 10:10] LABS: ALLEN TEST YES; BE 17.5 mmoll (-3.0-3.0); BLOOD TYPE ARTERIAL; DRAW SITE R RADIAL; O2(CT) 15.5 mL/dL (15.0-23.0); SAMPLE BLOOD; SAO2 84.4 % (95.0-100.0); SRATE 16 BPM; THB 13.5 g/dL (11.5-17.4); TVOL 600 mL; pH(98.6) 7.36 (7.35-7.45)
[2016-12-15 10:12] LABS: MODALITY VENTILATOR; PCO2(98.6) 84 mmHg (35-45); PO2(98.6) 47 mmHg (60-100)
[2016-12-15] MEDS: M.V.I.-12 10 ML, FOLIC ACID 1 MG, MAGNESIUM SULFATE 1 GM, THIAMINE 100 MG in NS 1,000 ML IV SCH (12:06)
[2016-12-15] MEDS ORDERED: CLINIMIX E 4.25%-5% SOLUTION 1,000 ML IV SCH (12:09)
--- NOTE | 2016-12-15 12:53 | PROGRESS NOTE ---
DATE: 12/15/2016 SUBJECTIVE: Today Mr. Brady continues to be intubated and nonresponsive. I understand the paralytic has been discontinued this morning. OBJECTIVE: Vital signs: Blood pressure is 144/88, pulse is 90, respiration is 16, temperature 99.5 degrees. General: Mr. Brady is a 41-year-old male. He is in bed, intubated and unresponsive. Synchronizing well on the ventilator. HEENT: Mucosa is pink and moist. Anicteric. Acyanotic. Neck: Supple. Chest: Air entry is bilaterally reduced, more so to the left hemithorax. There are a lot of crackles and rhonchi in the left hemithorax. Abdomen: Soft. Extremities: Maybe about a plus of pedal edema. EDITOR IN CHIEF NEWSPAPER: Patient is unresponsive. Pupils are kind of pinpoint. The patient has a lot of injection of the conjunctivae. LABORATORY DATA: WBC is 17.48, hemoglobin is 17.3, platelet count is 354,000. There are 8% of bands on the peripheral smear. Chemistry has been reviewed, unremarkable. The patient's I's and O's: Urine output was 4225 yesterday. [place] [id number]. Chest x-ray done this morning shows slight worsening in the pulmonary edema. ASSESSMENT: 1. Acute hypoxemic respiratory failure. 2. Multifocal pneumonia secondary to methicillin-resistant Staphylococcus aureus and also suspected aspirations. 3. Paroxysmal atrial fibrillation, rate controlled currently. 4. Metabolic encephalopathy. 5. Nutritional needs. Patient seems to be aspirating on the NG tube feeding and it has to be stopped almost every day with high residuals. Patient was on the paralytics so I think that could explain some of it and because patient has significant lung findings today, will go ahead and discontinue the NG tube feeding altogether. Put the patient on Clinimix with lipid infusion at a very low rate to give him some nutrition. 6. History of drug abuse. The initial history was that patient had taken methamphetamine and amphetamine which was positive in his urine from an outside facility hospital. PLAN: In general, I think Mr. Brady's condition continues to be extremely critical. Paralytics have been discontinue. We are going to continue with the ventilator, the sedatives, and the antibiotics. I am still awaiting the family members so we can have discussions on the goals going forward. cc: Jose Jarrett MD
[2016-12-15] MEDS ORDERED: LIPOSYN 20% 250 ML IV SCH (13:00)
[2016-12-15] MEDS: SOLU-MEDROL IV SCH ×2 (14:40→21:08)
[2016-12-15] MEDS: NS 500 ML IV SCH (15:25)
[2016-12-15] MEDS: TYLENOL PO PRN (18:14)
--- NOTE | 2016-12-15 19:13 | PROGRESS NOTE ---
DATE: 12/15/2016 PRESENT ILLNESS: The patient has a methicillin-resistant Staph aureus pneumonia. He continues to have fever and the leukocytosis. Also his chest x-ray shows worse opacities. MEDICATIONS: This is day 5 of treatment was Zyvox. PHYSICAL EXAMINATION: Vital Signs: Temperature is 101.2 degrees. Pulse 94, respirations 24, blood pressure 156/87. General: This is an ill-appearing young male. He is intubated and sedated. Ears, nose and throat: Patient has an orotracheal tube in place. Thorax patient has an increased AP diameter of the chest. Lungs: There were bilateral rhonchi. Cardiovascular: Regular heart rate. Abdomen: Slightly distended, but soft and apparently not tender. LABORATORY AND X-RAY: Chest x-ray shows worsening alveolar opacities. Blood gases show a pH of 7.36, a PO2 of 47, pCO2 of 84, and the patient's creatinine is 0.8. GFR is greater than 60. CBC shows a white count of 17,480, hemoglobin 17.2 and platelet count 354,000. ALT is 125. Urinalysis shows no bacteria or white cells. ASSESSMENT AND PLAN: 1. The patient has a methicillin-resistant Staph aureus pneumonia. This may well be accompanied by another infection. In that regard, I am going to continue Zyvox, but I have ordered blood cultures and a sputum culture and have added cefepime to the patient's treatment. 2. Comorbidities include diabetes mellitus, drug addiction and at one time, the patient was in care home. cc: Lexx Hernandez MD
[2016-12-15] MEDS: NEXIUM IV SCH (21:12)
[2016-12-15] MEDS: MAXIPIME 2 GM/NS 2 GM/100 ML IVPB IV SCH (23:08)
[2016-12-16] MEDS: LACRI-LUBE OPH OINT BOTH EYES SCH ×6 (00:07→20:02)
[2016-12-16] MEDS: DIPRIVAN 1% 1,000 MG/100 ML BOTTLE IV SCH ×13 (00:07→22:10)
[2016-12-16] MEDS: SOLU-MEDROL IV SCH ×4 (02:17→19:44)
[2016-12-16] MEDS: DUONEB (A & A) INH SCH ×6 (02:57→23:03)
[2016-12-16 04:29] LABS: ALLEN TEST YES; BE 17.1 mmoll (-3.0-3.0); BLOOD TYPE ARTERIAL; DRAW SITE R RADIAL; METHB 0.8 % (0.0-1.5); O2(CT) 18.6 mL/dL (15.0-23.0); PO2(98.6) 51 mmHg (60-100); SAMPLE BLOOD; SAO2 89.1 % (95.0-100.0); SRATE 16 BPM; THB 15.3 g/dL (11.5-17.4); TVOL 600 mL; pH(98.6) 7.46 (7.35-7.45)
[2016-12-16 04:30] LABS: MODALITY VENTILATOR
[2016-12-16 04:31] LABS: PCO2(98.6) 63 mmHg (35-45)
[2016-12-16 05:00] LABS: BASO% 1.2 % (0.0-0.8); EOS# 0.05 X1000 (0.0-0.7); EOS% 0.2 % (0.0-10.0); HEMOGLOBIN 13.3 g/dL (14.0-18.0); IMM GRAN# 2.55 X1000 (0.0-0.04); IMM GRAN% 10.3 % (0.0-0.5); LYMPH% 8.1 % (20.5-51.1); MANUAL DIFF NEEDED? YES; MCH 30.4 PG (27-31); MCHC 32.4 g/dL (33-37); MCV 93.6 FL (81-99); MONO# 2.15 X1000 (0.11-0.59); MONO% 8.7 % (1.7-9.3); MPV 9.9 FL (7.4-10.4); NEUT% 71.5 % (42.2-75.2); PLT 558 X1000 (130-400); RBC 4.38 XMIL (4.7-6.1)
[2016-12-16 05:26] LABS: AGAP 10; ALBUMIN 2.6 g/dL (3.5-5.0); ALKALINE PHOSPHATASE 86 U/L (32-122); BUN 35 mg/dL (8-22); CALCIUM 9.3 mg/dL (8.8-10.2); CHLORIDE 95 mmol/L (98-107); COSMO 291; GOT 78 U/L (10-34); GPT 128 U/L (10-44); POTASSIUM 3.5 mmol/L (3.5-5.1); SODIUM 142 mmol/L (136-145); TCO2 37 mmol/L (25-35); TOTAL BILIRUBIN 1.24 mg/dL (0.20-1.00); TOTAL PROTEIN 6.6 g/dL (6.3-8.3)
[2016-12-16 05:30] LABS: HDL 26 mg/dL (35-55); TRIGLYCERIDES 498 mg/dL (39-160)
[2016-12-16] MEDS: CARDIZEM 125/NS 125 MG/125 ML IVPB IV SCH (05:38)
[2016-12-16 07:06] LABS: BANDS 4 % (0-1); LYMPHS 6 % (21-51); MONO 1 % (1-9); POLYCHROM 1+
--- NOTE | 2016-12-16 07:32 | Diag Imaging Result Doc PS360 ---
CHEST-PORTABLE - 12/16/2016 INDICATION: dyspnea TECHNIQUE: COMPARISON: 12/15/2016 FINDINGS: Stable support tubes in good position. Stable cardiomegaly. Stable dense bilateral infiltrates that appear alveolar. No new abnormality. IMPRESSION: No change from prior. Findings consistent with severe bilateral pneumonia or ARDS. Electronically signed by Marin Ramos 12/16/2016 7:30 AM
[2016-12-16] MEDS: MUCOMYST 20% INH SCH ×2 (07:39→19:18)
[2016-12-16] MEDS: ZYVOX 600 MG/D5W 600 MG/300 ML IVPB IV SCH ×2 (07:56→19:50)
[2016-12-16] MEDS: LASIX IV SCH (08:02)
--- NOTE | 2016-12-16 10:59 | PROGRESS NOTE ---
DATE: 12/16/2016 SUBJECTIVE: Today, Mr. Brady continues to be intubated and sedated on propofol. No acute changes overnight per the attending nurse. OBJECTIVE: Vital Signs: Blood pressure is 170/89, pulse of 73, respirations are 16, temperature is 98.3 degrees. General Examination: Mr. Brady is a 41-year-old, male. He is in bed, synchronizing well with the ventilator. HEENT: Mucosa is pink and moist. Anicteric. Acyanotic. Neck: Supple. Chest: Air entry is bilaterally reduced. There are diffuse bilateral crepitations. Cardiovascular: Regular rate and rhythm. Abdomen: Soft, distended. Extremities: About 2 to 3+ pedal edema. CHOCOLATE DIPPER: Patient is intubated and sedated. When the sedation is off, he would withdrawal very actively to pain. He continues to have very good pupillary reflex and gag reflex. Laboratory Data: WBC is up to 24.83, hemoglobin is 13.3, platelet count 558,000. Chemistry is reviewed. Sodium is 142, potassium is 3.5, bicarb is 37, chloride is 97. AST is slightly up to 78, ALT is 128. A chest x-ray done this morning shows stable cardiomegaly, stable dense bilateral infiltrates that are prealveolar. Blood gases, pH 7.46, pCO2 is 63, PaO2 is 51. This is on 100% of oxygen. PEEP of 14, tidal volume of 600, and respiratory rate of 16. ASSESSMENT: 1. Acute hypoxemic respiratory failure (acute respiratory distress syndrome). 2. Multifocal pneumonia with methicillin-resistant Staphylococcus aureus positive sputum. 3. Paroxysmal atrial fibrillation, currently rate controlled. 4. Metabolic encephalopathy. 5. History of drug abuse with urine drug screen positive for amphetamine, methamphetamine, and THC. 6. Mild transaminitis and elevated triglycerides. I think this is probably medication related, especially with the amount of propofol that he has gotten and also the previous tube feedings as well as the paralytics. Now that he is off all those medications, we are going to keep trend of these numbers. PLAN: I think in general, Mr. Brady continues to be critically sick. We will continue with the ventilator support, the current antibiotics. All sort of nutrition has been withheld since he seems to be aspirating on the NG tube and he is so volume overloaded that we cannot use any IV parenteral nutrition either for now. cc: Jose Jarrett MD
[2016-12-16] MEDS: LOVENOX SUBQ SCH ×2 (11:37→22:14)
[2016-12-16] MEDS: MAXIPIME 2 GM/NS 2 GM/100 ML IVPB IV SCH ×2 (11:37→22:10)
[2016-12-16] MEDS: M.V.I.-12 10 ML, FOLIC ACID 1 MG, MAGNESIUM SULFATE 1 GM, THIAMINE 100 MG in NS 1,000 ML IV SCH (12:17)
[2016-12-16] MEDS ORDERED: LASIX IV ONE (12:35)
[2016-12-16] MEDS: NS 500 ML IV SCH (19:46)
--- NOTE | 2016-12-16 20:00 | PROGRESS NOTE ---
DATE: 12/16/2016 PRESENT ILLNESS: Patient has methicillin-resistant Staph aureus pneumonia. He has been having less fever, but he still has a marked leukocytosis. It should be noted that the patient is on steroids also and this could be contributing to his leukocytosis. His chest x-ray today showed bilateral opacities, but they were not worse than yesterday's opacity seen on x-ray. MEDICATIONS: This is day 6 of treatment with Zyvox and day 1 of treatment with cefepime. PHYSICAL EXAMINATION: Vital Signs: Temperature is 99 degrees, pulse 93, respirations 17, blood pressure 177/86. General: This is an obese young male who is intubated and sedated. Lungs: Bilateral rhonchi. Cardiovascular: Regular heart rate. Abdomen: Soft and nontender. The patient's IV sites are not erythematous or swollen. Ear, nose and throat: Patient is intubated. LABORATORY AND X-RAY: Chest x-ray shows bilateral infiltrates. Blood and sputum cultures are pending. CBC shows a white count of 24,830, hemoglobin 13.3, and platelet count 558,000. Blood gases show a pH of 7.46, a PO2 of 51, a pCO2 of 63. Creatinine 0.6. GFR is greater than 60. ASSESSMENT AND PLAN: 1. The patient has methicillin-resistant Staph aureus pneumonia. There may be an accompanying additional infection. My plan would be to continue his current antibiotics pending culture results. 2. Comorbidities include diabetes mellitus, drug addiction and the patient at 1 time was in shelter. cc: Lexx Hernandez MD
[2016-12-16] MEDS: NEXIUM IV SCH (20:02)
[2016-12-17] MEDS: SOLU-MEDROL IV SCH ×4 (01:37→19:23)
[2016-12-17] MEDS: DIPRIVAN 1% 1,000 MG/100 ML BOTTLE IV SCH ×7 (01:37→22:08)
[2016-12-17] MEDS: LACRI-LUBE OPH OINT BOTH EYES SCH ×6 (01:38→20:08)
[2016-12-17] MEDS: DUONEB (A & A) INH SCH ×6 (03:08→23:04)
[2016-12-17 04:37] LABS: ALLEN TEST YES; BE 19.2 mmoll (-3.0-3.0); BLOOD TYPE ARTERIAL; DRAW SITE R RADIAL; METHB 1.6 % (0.0-1.5); PO2(98.6) 71 mmHg (60-100); SAMPLE BLOOD; SAO2 95.7 % (95.0-100.0); SRATE 16 BPM; TVOL 600 mL; pH(98.6) 7.48 (7.35-7.45)
[2016-12-17 04:38] LABS: MODALITY VENTILATOR; PCO2(98.6) 62 mmHg (35-45)
[2016-12-17 05:23] LABS: BASO% 0.2 % (0.0-0.8); HEMATOCRIT 40.9 % (42.0-52.0); IMM GRAN# 0.74 X1000 (0.0-0.04); IMM GRAN% 4.4 % (0.0-0.5); LYMPH% 5.4 % (20.5-51.1); MANUAL DIFF NEEDED? YES; MCH 29.7 PG (27-31); MCHC 31.8 g/dL (33-37); MCV 93.4 FL (81-99); MONO% 4.8 % (1.7-9.3); NEUT% 85.2 % (42.2-75.2); PLT 526 X1000 (130-400); RBC 4.38 XMIL (4.7-6.1)
[2016-12-17 05:53] LABS: AGAP 9; ALBUMIN 2.7 g/dL (3.5-5.0); ALKALINE PHOSPHATASE 80 U/L (32-122); BUN 38 mg/dL (8-22); CALCIUM 8.9 mg/dL (8.8-10.2); CHLORIDE 95 mmol/L (98-107); COSMO 298; GOT 66 U/L (10-34); GPT 129 U/L (10-44); POTASSIUM 3.6 mmol/L (3.5-5.1); SODIUM 144 mmol/L (136-145); TCO2 40 mmol/L (25-35); TOTAL BILIRUBIN 1.15 mg/dL (0.20-1.00); TOTAL PROTEIN 6.3 g/dL (6.3-8.3)
[2016-12-17 05:57] LABS: BANDS 10 % (0-1); LYMPHS 4 % (21-51); MONO 4 % (1-9); POLYCHROM OCCASIONAL
[2016-12-17] MEDS: MUCOMYST 20% INH SCH ×2 (07:16→19:19)
--- NOTE | 2016-12-17 07:33 | Diag Imaging Result Doc PS360 ---
EXAM: CHEST-PORTABLE INDICATION: dyspnea TECHNIQUE: One view COMPARISON: 12/16/2016 FINDINGS: Support tubes and lines are in stable positions. Diffuse bilateral infiltrates are unchanged. No new consolidation is appreciated. There is perhaps a slight increase in pleural fluid on the right. Cardiac silhouette is stable. IMPRESSION: Slight increase in the small to moderate-sized pleural effusion on the right. Stable chest, otherwise. Electronically signed by Davis Shabazz 12/17/2016 7:31 AM
[2016-12-17] MEDS: LASIX IV SCH (08:24)
[2016-12-17] MEDS: ZYVOX 600 MG/D5W 600 MG/300 ML IVPB IV SCH ×2 (08:25→19:24)
[2016-12-17] MEDS: LOVENOX SUBQ SCH ×2 (11:15→22:14)
[2016-12-17] MEDS: MAXIPIME 2 GM/NS 2 GM/100 ML IVPB IV SCH ×2 (11:15→22:14)
--- NOTE | 2016-12-17 13:48 | PROGRESS NOTE ---
DATE: 12/17/2016 Today Mr. Brady continues to be intubated and sedated. I had a lengthy discussion with the daughter who was at the bedside at the time of the interview. OBJECTIVELY: His vitals stable. Blood pressure is 133/74, pulse of 89, respirations 16, temperature is 98.3 degrees. General exam: Mr. Brady is a 41-year-old male. He is in bed, not seemingly distressed. The patient is still intubated and sedated. Synchronizing well with the ventilator. Chest: Air entry is bilaterally reduced. There is some rhonchi in both lung eubanks more so on the left. Cardiovascular: Regular rate and rhythm. Abdomen: Soft. Extremities: About 2 to 3+ pedal edema. METEOROLOGICAL EQUIPMENT REPAIRER: Patient is intubated, sedated on propofol. LABORATORY DATA: WBC is 16.72, hemoglobin is 13.0, platelet count is 526,000, 10% of bands on peripheral smear. Chemistry is reviewed. Unremarkable except for carbon dioxide of 400. ASSESSMENT: 1. Acute hypoxemic respiratory failure (ARDS). 2. Multifocal pneumonia with MRSA sputum positive. Subsequent culture has actually been negative. 3. Paroxysmal atrial fibrillation. Currently rate controlled. 4. Metabolic encephalopathy. 5. History of drug abuse with urine drug screen positive for amphetamine and methamphetamine and THC in the outside facility. 6. Mild transaminitis and elevated triglycerides. We will continue with the current antibiotic coverage including cefepime, and linezolid. We will also continue with the PPI and DVT prophylaxis. The patient has been started on methylprednisolone. We will continue with the vent support and for now will withhold the nutrition until tomorrow we will re-evaluate. cc: Jose Jarrett MD [facility]
[2016-12-17] MEDS: M.V.I.-12 10 ML, FOLIC ACID 1 MG, MAGNESIUM SULFATE 1 GM, THIAMINE 100 MG in NS 1,000 ML IV SCH (14:02)
--- NOTE | 2016-12-17 17:45 | PROGRESS NOTE ---
DATE: 12/17/2016 PRESENT ILLNESS: The patient currently is being treated for pneumonia. It is the due to methicillin-resistant Staph aureus and there may be a 2nd organism involved due to the fact that the patient seemed to get better when we added cefepime to the Zyvox he was getting. The patient does have a leukocytosis. He also is on high dose of steroids which certainly could be contributing to the leukocytosis. MEDICATIONS: This is day 7 of treatment with Zyvox and day 2 of treatment with cefepime. PHYSICAL EXAMINATION: Vital Signs: Temperature is 98.8 degrees, pulse 94, respirations 16, blood pressure 137/79. General: This is an ill-appearing young male. He is intubated and sedated. Lungs: Bilateral rhonchi. Cardiovascular: Heart rate is regular. Abdomen: Somewhat protuberant, but soft and nontender. Neurologic: Patient is obtunded. Ears, nose and throat: He is intubated. LABORATORY AND X-RAY: Chest x-ray shows slight increase in the pleural effusion, but no increase in infiltrates. CBC has a white count of 16,720, hemoglobin 13 and platelet count 526,000. The patient's blood gases show a pH of 7.48, PO2 of 71, a pCO2 of 62. Creatinine is 0.6. GFR is greater than 60. The ALT is 129. ASSESSMENT AND PLAN: 1. Patient has a methicillin-resistant Staph aureus pneumonia. There may be a secondary infection of an involved as well. 2. Comorbidities: Include diabetes mellitus, drug addiction. cc: Lexx Hernandez MD
[2016-12-17] MEDS: SODIUM CHLORIDE 0.9% INJ SCH (20:05)
[2016-12-17] MEDS: NEXIUM IV SCH (20:05)
[2016-12-18] MEDS: TYLENOL PO PRN ×2 (00:11→04:36)
[2016-12-18] MEDS: DIPRIVAN 1% 1,000 MG/100 ML BOTTLE IV SCH ×10 (00:12→22:13)
[2016-12-18] MEDS: LACRI-LUBE OPH OINT BOTH EYES SCH ×6 (00:44→20:05)
[2016-12-18] MEDS: SOLU-MEDROL IV SCH ×4 (00:44→20:16)
[2016-12-18] MEDS: DUONEB (A & A) INH SCH ×6 (03:14→23:19)
[2016-12-18] MEDS: MORPHINE IV PRN (03:40)
[2016-12-18 04:48] LABS: ALLEN TEST YES; BE 20.3 mmoll (-3.0-3.0); BLOOD TYPE ARTERIAL; DRAW SITE R RADIAL; METHB 1.2 % (0.0-1.5); O2(CT) 17.4 mL/dL (15.0-23.0); PO2(98.6) 76 mmHg (60-100); SAMPLE BLOOD; SAO2 96.4 % (95.0-100.0); SRATE 16 BPM; THB 13.1 g/dL (11.5-17.4); TVOL 600 mL; pH(98.6) 7.52 (7.35-7.45)
[2016-12-18 04:50] LABS: MODALITY VENTILATOR; PCO2(98.6) 57 mmHg (35-45)
[2016-12-18 04:53] LABS: MANUAL DIFF NEEDED? NO
[2016-12-18 05:05] LABS: BASO% 0.1 % (0.0-0.8); EOS# 0.01 X1000 (0.0-0.7); EOS% 0.1 % (0.0-10.0); HEMATOCRIT 40.3 % (42.0-52.0); HEMOGLOBIN 12.7 g/dL (14.0-18.0); IMM GRAN# 0.35 X1000 (0.0-0.04); LYMPH# 0.89 X1000 (1.2-3.4); MCH 29.3 PG (27-31); MCHC 31.5 g/dL (33-37); MCV 92.9 FL (81-99); MONO# 1.48 X1000 (0.11-0.59); MONO% 8.3 % (1.7-9.3); MPV 9.7 FL (7.4-10.4); NEUT% 84.5 % (42.2-75.2); PLT 556 X1000 (130-400); RBC 4.34 XMIL (4.7-6.1)
[2016-12-18 05:28] LABS: AGAP 12; ALBUMIN 2.6 g/dL (3.5-5.0); ALKALINE PHOSPHATASE 75 U/L (32-122); BUN 40 mg/dL (8-22); CALCIUM 9.4 mg/dL (8.8-10.2); CHLORIDE 96 mmol/L (98-107); COSMO 298; GOT 81 U/L (10-34); GPT 146 U/L (10-44); POTASSIUM 3.8 mmol/L (3.5-5.1); SODIUM 144 mmol/L (136-145); TCO2 36 mmol/L (25-35); TOTAL BILIRUBIN 1.19 mg/dL (0.20-1.00); TOTAL PROTEIN 6.2 g/dL (6.3-8.3)
--- NOTE | 2016-12-18 07:33 | Diag Imaging Result Doc PS360 ---
EXAM: CHEST-PORTABLE HISTORY: dyspnea TECHNIQUE: AP portable at 0500 COMMENT: There is opacification of the inferior right upper lobe as well as the lingula. There is been clearing of the opacity over the right lower lobe and middle lobe since the previous study of 12/17/2016. The endotracheal and NG tubes remain in place. IMPRESSION: Improved pulmonary edema versus pneumonia. Electronically signed by Shahram Christopher 12/18/2016 7:31 AM
[2016-12-18] MEDS: MUCOMYST 20% INH SCH ×2 (07:55→19:15)
[2016-12-18] MEDS: NS 500 ML IV SCH (08:02)
[2016-12-18] MEDS: LASIX IV SCH (08:39)
[2016-12-18] MEDS: ZYVOX 600 MG/D5W 600 MG/300 ML IVPB IV SCH ×2 (08:40→20:05)
[2016-12-18] MEDS: MAXIPIME 2 GM/NS 2 GM/100 ML IVPB IV SCH ×2 (11:06→22:47)
[2016-12-18] MEDS: LOVENOX SUBQ SCH ×2 (11:06→22:46)
--- NOTE | 2016-12-18 12:12 | PROGRESS NOTE ---
DATE: 12/18/2016 SUBJECTIVE: Today Mr. Brady continues to be intubated and sedated. There is an aunt at the bedside. She is a nurse and she is the head of the cardiac unit in [place]. OBJECTIVE: Vitals sign: Blood pressure is 169/93, pulse 74, respirations 16, temperature is 98.7 degrees. General: Mr. Brady is a 41-year-old male. He is in bed, still intubated and sedated on propofol. HEENT: Mucosa is pink and moist. Anicteric. Acyanotic. Neck is supple. Chest: Air entry is bilaterally reduced. There are some transmitted sounds from the ventilator. Cardiovascular: Regular rate and rhythm. No murmurs, no rubs. No gallops. Abdomen is soft. Extremities: About 2+ pedal edema. AURICULAR THERAPIST: Patient is intubated and sedated on propofol, but he is able to grimace the forehead, has very good pain response. LABORATORY DATA: WBC 17.81, hemoglobin is 12.7, platelet count of 565,000. Chemistry is reviewed and unremarkable. AST is 81 and ALT is 142. I and O: Urine output is 2660. Patient has a positive balance of 17,861. A chest x-ray this morning shows some improved pulmonary edema versus pneumonia. CURRENT MEDICATIONS: Include: 1. Mucomyst. 2. Cefepime 2 q. 12. 3. Diltiazem drip. 4. Lovenox 130 q. 12. 5. Nexium. 6. Lasix 60 IV daily. 7. Zyvox 600 q. 12. 8. Methylprednisone 60 IV q. 6. 9. Propofol drip. ASSESSMENT: 1. Acute hypoxemic respiratory failure (ARDS). Patient continues to be on 100% FiO2, saturations in the 94s. Pulmonary medicine is involved. 2. Multifocal pneumonia with methicillin-resistant staphylococcus aureus sputum positive, subsequent culture has been negative. Patient is currently on Zyvox and cefepime, and ID is following. 3. Paroxysmal atrial fibrillation. Patient is currently rate controlled on diltiazem drip. 4. Metabolic encephalopathy. 5. History of drug abuse with UDS from an outside facility positive for amphetamine, methamphetamine and THC. 6. Mild transaminitis and elevated triglyceridemia. We think this was drug induced. We will continue to follow the labs. 7. Acute deep venous thrombosis involving the right posterior tibial vein and left popliteal vein. The patient is on therapeutic Lovenox. 8. Fluid overload. The patient continues to be about 17,000 fluid positive. Will continue with the Lasix. So far, the subsequent chest x-ray this morning shows some improvement of the pulmonary edema. Will continue with the daily Lasix. 9. Nutrition. Patient continues to be without any nutrition. I think he has been more than 48 hours off the paralytic agent. We will be waiting on pulmonary medicine to evaluate the patient and see if we can start him on minimum NG tube feedings for now. We spoke extensively with the aunt, who was at the bedside. I think at this time we are going to continue with the current management, vent, antibiotics, Lovenox therapy and stress ulcer prophylactic management. Will be pending further recommendations from the other subspecialties involved in his care. cc: Jose Jarrett MD MTDD
[2016-12-18] MEDS: M.V.I.-12 10 ML, FOLIC ACID 1 MG, MAGNESIUM SULFATE 1 GM, THIAMINE 100 MG in NS 1,000 ML IV SCH (12:53)
--- NOTE | 2016-12-18 18:52 | PROGRESS NOTE ---
DATE: 12/18/2016 PRESENT ILLNESS: The patient is being treated for a methicillin-resistant Staph aureus pneumonia which may have been complicated by a secondary infection. The patient continues to have leukocytosis. The this could be due to his pneumonia or it could be due to the steroids or it could be a combination of both. MEDICATIONS: This is the 8th day of treatment with Zyvox and the 3rd day of treatment with cefepime. PHYSICAL EXAMINATION: Vital Signs: Temperature is 98.2 degrees, pulse 68, respirations 16, blood pressure 153/82. General: This is an ill-appearing young male. He is intubated and sedated. Lungs: There were scattered rhonchi bilaterally. Cardiovascular: Heart rate is regular. Abdomen: Soft and nontender. Extremities: Patient has a PICC in the right arm. The site is not erythematous or swollen. LAB AND X-RAY: Chest x-ray shows improvement in the patient's infiltrates. Sputum grew normal coco. CBC shows a white count of 17,810, hemoglobin 12.7, and platelet count 556,000. Creatinine 0.6. GFR is greater than 60. Blood gases show a pH of 7.52, PO2 of 76, a pCO2 of 57. ASSESSMENT AND PLAN: Patient has pneumonia. It appears to be improving. My plan will be to continue the current treatment. COMORBIDITIES: Include diabetes mellitus and drug addiction. cc: Lexx Hernandez MD
[2016-12-18] MEDS: SODIUM CHLORIDE 0.9% INJ SCH (20:05)
[2016-12-18] MEDS: NEXIUM IV SCH (20:05)
[2016-12-19] MEDS: SOLU-MEDROL IV SCH ×4 (00:48→19:36)
[2016-12-19] MEDS: LACRI-LUBE OPH OINT BOTH EYES SCH ×6 (00:49→20:56)
[2016-12-19] MEDS: DIPRIVAN 1% 1,000 MG/100 ML BOTTLE IV SCH ×11 (01:05→22:53)
[2016-12-19] MEDS: DUONEB (A & A) INH SCH ×6 (03:16→23:18)
[2016-12-19] MEDS: TYLENOL PO PRN (03:18)
[2016-12-19 05:00] LABS: ALLEN TEST YES; BE 17.3 mmoll (-3.0-3.0); BLOOD TYPE ARTERIAL; DRAW SITE R RADIAL; METHB 0.9 % (0.0-1.5); O2(CT) 18.2 mL/dL (15.0-23.0); PCO2(98.6) 54 mmHg (35-45); PO2(98.6) 92 mmHg (60-100); SAMPLE BLOOD; SAO2 98.3 % (95.0-100.0); SRATE 16 BPM; THB 13.4 g/dL (11.5-17.4); TVOL 600 mL; pH(98.6) 7.51 (7.35-7.45)
[2016-12-19 05:01] LABS: MODALITY VENTILATOR
[2016-12-19 05:29] LABS: MANUAL DIFF NEEDED? NO
[2016-12-19 05:35] LABS: BASO% 0.1 % (0.0-0.8); EOS# 0.07 X1000 (0.0-0.7); EOS% 0.4 % (0.0-10.0); HEMATOCRIT 39.6 % (42.0-52.0); HEMOGLOBIN 12.7 g/dL (14.0-18.0); IMM GRAN# 0.19 X1000 (0.0-0.04); IMM GRAN% 1.1 % (0.0-0.5); LYMPH# 0.87 X1000 (1.2-3.4); MCH 29.7 PG (27-31); MCHC 32.1 g/dL (33-37); MCV 92.5 FL (81-99); MONO# 1.51 X1000 (0.11-0.59); MONO% 8.7 % (1.7-9.3); MPV 9.8 FL (7.4-10.4); NEUT% 84.7 % (42.2-75.2); PLT 544 X1000 (130-400); RBC 4.28 XMIL (4.7-6.1)
[2016-12-19 06:07] LABS: AGAP 7; ALBUMIN 2.9 g/dL (3.5-5.0); ALKALINE PHOSPHATASE 74 U/L (32-122); BUN 39 mg/dL (8-22); CALCIUM 9.1 mg/dL (8.8-10.2); CHLORIDE 96 mmol/L (98-107); COSMO 288; GOT 85 U/L (10-34); GPT 173 U/L (10-44); SODIUM 139 mmol/L (136-145); TCO2 36 mmol/L (25-35); TOTAL BILIRUBIN 1.52 mg/dL (0.20-1.00); TOTAL PROTEIN 6.3 g/dL (6.3-8.3)
--- NOTE | 2016-12-19 07:10 | Diag Imaging Result Doc PS360 ---
EXAM: CHEST-PORTABLE HISTORY: dyspnea TECHNIQUE: AP portable at 0500 COMMENT: there is ill-defined opacity in the left lower lobe and to some extent in the right upper lobe. The latter has improved since 12/18/2016. Endotracheal and NG tubes remain in place. The right PICC line is again noted. IMPRESSION: Pulmonary edema and/or pneumonia slightly improved in the right upper lobe. Electronically signed by Shahram Christopher 12/19/2016 7:07 AM
[2016-12-19] MEDS: MUCOMYST 20% INH SCH ×2 (07:42→19:23)
[2016-12-19] MEDS: ZYVOX 600 MG/D5W 600 MG/300 ML IVPB IV SCH ×2 (08:00→19:37)
[2016-12-19] MEDS: LASIX IV SCH (08:00)
[2016-12-19] MEDS: NS 500 ML IV SCH (08:28)
[2016-12-19] MEDS: MAXIPIME 2 GM/NS 2 GM/100 ML IVPB IV SCH ×2 (11:09→22:07)
[2016-12-19] MEDS: LOVENOX SUBQ SCH ×2 (11:09→22:04)
[2016-12-19] MEDS: M.V.I.-12 10 ML, FOLIC ACID 1 MG, MAGNESIUM SULFATE 1 GM, THIAMINE 100 MG in NS 1,000 ML IV SCH (12:28)
--- NOTE | 2016-12-19 12:55 | PROGRESS NOTE ---
DATE: 12/19/2016 SUBJECTIVE: Today Mr. Brady continues to be stable, but critical. No complaints overnight from the nursing staff. OBJECTIVE: Vital signs: Blood pressure is 143/83, pulse 65, respirations 16, temperature is 98.6 degrees. The patient is saturating about 95% on 70% of FiO2. General: Objectively, Mr. Brady is a 41-year-old male. He is in bed, intubated. HEENT: Mucosa is pink and moist. Anicteric. Acyanotic. Neck: Supple. Chest: Air entry is bilaterally reduced. There are some transmitted sounds from the ventilator. Cardiovascular: Regular rate and rhythm. Abdomen: Soft, kind of distended. Bowel sounds are slightly hypoactive. Extremities: 2 + pedal edema. TECHNICAL CLERK: Patient is intubated and sedated on propofol, but he is able to move his lower extremities and has spontaneous eye opening. LABORATORY DATA: WBC is 17.31, hemoglobin is 12.7, platelet count of 554. Chemistry is reviewed, unremarkable except for bicarbonate of 36. AST is 85, ALT is 173. IMAGING DATA: A chest x-ray this morning shows pulmonary edema and/or pneumonia , slightly improved in the right upper lobe. I's and O's: The patient had 3470 urine output for a negative balance of 624. Patient has an accumulative positive balance of 17,237. CVP this morning is between 10-12. CURRENT MEDICATIONS: 1. Tylenol. 2. Cefepime 2 g IV q. 12 hours. 3. Diltiazem drip. 4. Lovenox therapeutic dose. 5. Lasix 60 IV daily. 6. Zyvox 600 q. 12 hours. 7. Methylprednisolone 60 IV q. 6 hours. ASSESSMENT: 1. Acute hypoxemic respiratory failure (ARDS). Patient continues to be on the ventilator. He is now 70% of FiO2 and PEEP has also been dropped to about 12. The patient is satting very decently on these settings. 2. Multifocal pneumonia with methicillin-resistant Staphylococcus aureus sputum positive. Continue with his Zyvox and cefepime. 3. Paroxysmal atrial fibrillation. The patient is currently rate controlled on diltiazem drip. 4. Metabolic encephalopathy. 5. History of drug injection with urine drug screen positive for amphetamine, methamphetamine and THC. 6. Mild transaminitis and elevated triglyceridemia we think was related to medications. 7. Acute deep vein thrombosis involving the right posterior tibial vein and left popliteal vein. The patient will continue on therapeutic Lovenox. 8. Fluid overload. This is improving. The patient has adequate urine output today. He will continue with Lasix. Central venous pressure is a whole lot better today. 9. Constipation. Patient has not had any bowel movement I understand since he is here. We will do a KUB to see that he does not have any mechanical obstruction and go from there. 10. Nutritional needs: The patient has not had any form of nutrition for the past 4 days. Now that he is off the paralytic agent, we are going to try and see if he will be able to tolerate his nasogastric tube feedings. We will do the KUB first to exclude any mechanical obstruction and then, if there is none, we will start his nasogastric tube feedings later today. The patient's brother was at the bedside and the [id number] was also at the bedside at the time of the interview; I discussed the plan with them and they are all in agreement. cc: Jose Jarrett MD MTDD
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
[2016-12-19] MEDS ORDERED: MIRALAX PO ONE (15:17)
[2016-12-19] MEDS ORDERED: DULCOLAX PR ONE (15:17)
[2016-12-19] MEDS: MORPHINE IV PRN (19:35)
[2016-12-19] MEDS: NEXIUM IV SCH (20:56)
[2016-12-19] MEDS: SODIUM CHLORIDE 0.9% INJ SCH (20:56)
[2016-12-20] MEDS: SOLU-MEDROL IV SCH ×4 (00:44→20:13)
[2016-12-20] MEDS: DIPRIVAN 1% 1,000 MG/100 ML BOTTLE IV SCH ×10 (00:44→22:23)
[2016-12-20] MEDS: LACRI-LUBE OPH OINT BOTH EYES SCH ×6 (00:45→20:25)
[2016-12-20] MEDS: DUONEB (A & A) INH SCH ×6 (03:17→23:13)
[2016-12-20 05:08] LABS: ALLEN TEST YES; BLOOD TYPE ARTERIAL; DRAW SITE R RADIAL; METHB 0.9 % (0.0-1.5); O2(CT) 17.3 mL/dL (15.0-23.0); PO2(98.6) 77 mmHg (60-100); SAMPLE BLOOD; SAO2 97.1 % (95.0-100.0); SRATE 16 BPM; TVOL 600 mL; pH(98.6) 7.49 (7.35-7.45)
[2016-12-20 05:13] LABS: MODALITY VENTILATOR; PCO2(98.6) 52 mmHg (35-45)
[2016-12-20 05:25] LABS: MANUAL DIFF NEEDED? NO
[2016-12-20 05:35] LABS: BASO% 0.1 % (0.0-0.8); EOS# 0.09 X1000 (0.0-0.7); EOS% 0.5 % (0.0-10.0); HEMOGLOBIN 12.2 g/dL (14.0-18.0); IMM GRAN# 0.13 X1000 (0.0-0.04); IMM GRAN% 0.8 % (0.0-0.5); LYMPH# 0.92 X1000 (1.2-3.4); LYMPH% 5.4 % (20.5-51.1); MCH 30.5 PG (27-31); MCV 92.5 FL (81-99); MONO# 1.46 X1000 (0.11-0.59); MONO% 8.6 % (1.7-9.3); MPV 10.3 FL (7.4-10.4); NEUT% 84.6 % (42.2-75.2); PLT 499 X1000 (130-400)
[2016-12-20 05:49] LABS: AGAP 10; ALBUMIN 2.2 g/dL (3.5-5.0); ALKALINE PHOSPHATASE 64 U/L (32-122); BUN 32 mg/dL (8-22); CALCIUM 8.2 mg/dL (8.8-10.2); CHLORIDE 93 mmol/L (98-107); COSMO 284; POTASSIUM 4.6 mmol/L (3.5-5.1); SODIUM 138 mmol/L (136-145); TCO2 35 mmol/L (25-35); TOTAL BILIRUBIN 1.36 mg/dL (0.20-1.00); TOTAL PROTEIN 5.6 g/dL (6.3-8.3)
[2016-12-20 06:02] LABS: GOT 81 U/L (10-34); GPT 179 U/L (10-44)
--- NOTE | 2016-12-20 07:15 | Diag Imaging Result Doc PS360 ---
EXAM: CHEST-PORTABLE HISTORY: dyspnea TECHNIQUE: AP portable at 0500 COMMENT: There is an endotracheal tube with its tip of the thoracic inlet and an NG tube which passes below the diaphragm. There is alveolar and interstitial pulmonary edema. There is apparent pleural fluid bilaterally. There is cardiomegaly. Opacification in the lingula has apparently worsened as the left heart border is no longer visible. Some of this may be due to positioning however. There is some apparent volume loss in the left lung compared to the previous study which may be reflective of mucus plugging and left lower lobe atelectasis. IMPRESSION: 1. Slightly worsened pulmonary edema. 2. Worsened atelectasis in the left lower lobe. Electronically signed by Shahram Christopher 12/20/2016 7:13 AM
[2016-12-20] MEDS: ZYVOX 600 MG/D5W 600 MG/300 ML IVPB IV SCH ×2 (07:36→20:17)
[2016-12-20] MEDS: LASIX IV SCH (08:02)
[2016-12-20] MEDS: MUCOMYST 20% INH SCH ×2 (08:08→19:17)
[2016-12-20 09:01] LABS: HDL 27 mg/dL (35-55); TRIGLYCERIDES 401 mg/dL (39-160)
--- NOTE | 2016-12-20 09:08 | PROGRESS NOTE ---
DATE: 12/20/2016 SUBJECTIVE: Today Mr. Brady continues to be intubated but stable. OBJECTIVE: Vital signs: Blood pressure is 134/78, pulse of 67, respirations 16, temperature 98.9 degrees. Patient is saturating 95% on mechanical vent. General: Mr. Brady is a 41-year-old male. He is intubated, in bed. Does not seem to be in any remarkable distress. He is synchronizing well with the ventilator. HEENT: Mucosa is pink and moist. Anicteric. Acyanotic. Neck: Supple. Chest: Air entry is bilaterally reduced. There are a few bibasilar crepitations. Cardiovascular: Regular rate and rhythm. There are no murmurs. Abdomen: Soft, slightly distended but nontender. Extremities: There is 1+ pedal edema. MEDICAL OFFICE REP: Patient is sedated on propofol. Per the nursing staff, when he is off sedation he follows commands. LABORATORY DATA: WBC is down to 16.99, hemoglobin is 12.2, platelet count 499,000. Chemistry is reviewed. BUN is 32. The rest of the chemistry is unremarkable. AST is slightly elevated at 81, ALT is 179. A chest x-ray this morning shows slightly worsening of pulmonary edema, worse atelectasis in the left lower lobe. ASSESSMENT: 1. Acute hypoxemic respiratory failure (ARDS). Patient continues to be on the ventilator. He is currently on FiO2 of 60%, PEEP of 10. Saturating adequately. 2. Multifocal pneumonia with methicillin-resistant Staphylococcus aureus sputum positive. Patient is on Zyvox and cefepime. 3. Paroxysmal atrial fibrillation. Currently rate controlled on diltiazem. 4. Metabolic encephalopathy. Seems to be improving. I understand whenever the sedation is off the patient follows commands. 5. History of drug injection with urine screen positive for amphetamine, methamphetamine, and THC. 6. Mild transaminitis. 7. Acute deep vein thrombosis of the right posterior tibial vein and left popliteal vein. We will continue with therapeutic Lovenox. 8. Constipation. I was told that the patient had a bowel movement yesterday and that was the first in 14 days. 9. Nutritional needs. Patient has been started on very slow tube feedings at only 10 mL to see if he is able to tolerate it. Per the nursing staff, he seems to be doing fine. Residual was only 5 mL this morning. We will continue to gently manage this. PLAN: So in general, Mr. Brady has been 10 days on Zyvox and 5 days on cefepime. Will continue with the current antibiotics, ventilatory support, diuretic therapy, gentle tube feedings, and review him in the morning with labs and imaging studies. cc: Jose Jarrett MD
[2016-12-20] MEDS: LOVENOX SUBQ SCH ×2 (11:09→22:23)
[2016-12-20] MEDS: MAXIPIME 2 GM/NS 2 GM/100 ML IVPB IV SCH ×2 (11:09→22:23)
[2016-12-20] MEDS: M.V.I.-12 10 ML, FOLIC ACID 1 MG, MAGNESIUM SULFATE 1 GM, THIAMINE 100 MG in NS 1,000 ML IV SCH (13:16)
[2016-12-20] MEDS: SODIUM CHLORIDE 0.9% INJ SCH (20:15)
[2016-12-20] MEDS: NEXIUM IV SCH (20:15)
[2016-12-20] MEDS: MORPHINE IV PRN (20:16)
[2016-12-20] MEDS: TYLENOL PO PRN (20:53)
[2016-12-21] MEDS: TYLENOL PO PRN ×2 (00:41→04:55)
[2016-12-21] MEDS: LACRI-LUBE OPH OINT BOTH EYES SCH ×6 (00:41→20:33)
[2016-12-21] MEDS: DIPRIVAN 1% 1,000 MG/100 ML BOTTLE IV SCH ×13 (00:42→23:22)
[2016-12-21] MEDS: SOLU-MEDROL IV SCH ×3 (00:46→20:29)
[2016-12-21] MEDS: DUONEB (A & A) INH SCH ×6 (03:20→23:30)
[2016-12-21 04:35] LABS: ALLEN TEST YES; BE 10.9 mmoll (-3.0-3.0); BLOOD TYPE ARTERIAL; DRAW SITE R RADIAL; METHB 0.6 % (0.0-1.5); O2(CT) 21.2 mL/dL (15.0-23.0); PCO2(98.6) 49 mmHg (35-45); PO2(98.6) 57 mmHg (60-100); SAMPLE BLOOD; SAO2 91.6 % (95.0-100.0); SRATE 16 BPM; THB 16.9 g/dL (11.5-17.4); TVOL 600 mL; pH(98.6) 7.48 (7.35-7.45)
[2016-12-21 04:38] LABS: MODALITY VENTILATOR
[2016-12-21 06:06] LABS: AGAP 10; ALBUMIN 2.9 g/dL (3.5-5.0); ALKALINE PHOSPHATASE 68 U/L (32-122); BUN 33 mg/dL (8-22); CALCIUM 8.6 mg/dL (8.8-10.2); CHLORIDE 95 mmol/L (98-107); COSMO 284; GOT 56 U/L (10-34); GPT 165 U/L (10-44); POTASSIUM 4.2 mmol/L (3.5-5.1); SODIUM 138 mmol/L (136-145); TCO2 33 mmol/L (25-35); TOTAL BILIRUBIN 1.21 mg/dL (0.20-1.00)
[2016-12-21 06:23] LABS: BASO% 0.1 % (0.0-0.8); EOS# 0.03 X1000 (0.0-0.7); EOS% 0.2 % (0.0-10.0); HEMATOCRIT 37.5 % (42.0-52.0); HEMOGLOBIN 12.2 g/dL (14.0-18.0); IMM GRAN% 1.2 % (0.0-0.5); LYMPH# 1.22 X1000 (1.2-3.4); LYMPH% 7.6 % (20.5-51.1); MANUAL DIFF NEEDED? YES; MCH 29.7 PG (27-31); MCHC 32.5 g/dL (33-37); MCV 91.2 FL (81-99); MONO# 1.16 X1000 (0.11-0.59); MONO% 7.2 % (1.7-9.3); NEUT% 83.7 % (42.2-75.2); PLT 549 X1000 (130-400); RBC 4.11 XMIL (4.7-6.1)
[2016-12-21] MEDS: MORPHINE IV PRN ×2 (06:29→20:30)
--- NOTE | 2016-12-21 07:15 | Diag Imaging Result Doc PS360 ---
EXAM: CHEST-1 VIEW HISTORY: SOB TECHNIQUE: Portable COMPARISON: 12/20/2016 FINDINGS: A nasogastric tube overlies the esophagus and stomach. No change in the right-sided PICC line. The heart remains mildly prominent. The vasculature is less distended than on the prior study. Interval decrease in the pleural effusions. There is left basilar atelectasis. IMPRESSION: Overall interval improvement. Electronically signed by Tacos Lama 12/21/2016 7:12 AM
[2016-12-21] MEDS: MUCOMYST 20% INH SCH ×2 (07:55→19:25)
[2016-12-21] MEDS: ZYVOX 600 MG/D5W 600 MG/300 ML IVPB IV SCH ×2 (08:00→20:37)
[2016-12-21] MEDS: LASIX IV SCH (08:01)
[2016-12-21 08:13] LABS: BANDS 2 % (0-1); LYMPHS 12 % (21-51); MONO 6 % (1-9)
[2016-12-21] MEDS ORDERED: STERILE WATER INJ. INJ ONE (08:50)
[2016-12-21] MEDS ORDERED: CATHFLO IV ONE (08:50)
[2016-12-21] MEDS: MAXIPIME 2 GM/NS 2 GM/100 ML IVPB IV SCH ×2 (11:22→23:22)
[2016-12-21] MEDS: LOVENOX SUBQ SCH ×2 (11:22→23:21)
[2016-12-21] MEDS ORDERED: DULCOLAX PR PRN (11:50)
--- NOTE | 2016-12-21 12:10 | PROGRESS NOTE ---
DATE: 12/21/2016 SUBJECTIVE: Today, Mr. Brady continues to be intubated. The younger of the daughters was there at the time of the encounter. OBJECTIVE: Vital Signs: Blood pressure is 142/82, pulse 56, respirations are 16, temperature is 98.5 degrees. General Examination: Mr. Brady 41-year-old, male. He is in bed, intubated, seems to be tolerating the ventilator. Chest: Air entry is bilaterally reduced. There are some transmitted sounds from the ventilator. Cardiovascular: Regular rate and rhythm. Abdomen: Soft. No hepatosplenomegaly. Extremities: There maybe is 1+ pedal edema. REAL ESTATE SPECIALIST: Patient is sedated but he is able to grimace his face to painful stimulation. Laboratory Data: WBC is 16.09, hemoglobin is 12.3, platelet count is 549,000. There are only 2% of bands on peripheral smear. Chemistry is reviewed. Sodium is 138, potassium 4.2, chloride 95, bicarb is 33. AST is down to 56, ALT is down to 165. Blood gases, pH 7.48, pCO2 is 49, PO2 is 57. A chest x-ray this morning shows overall interval improvement. ASSESSMENT: 1. Acute hypoxemic respiratory failure, acute respiratory distress syndrome. Patient continues to be on the ventilator. He is currently on FiO2 of 50% and a PEEP of 10. Patient is saturating above 92%. 2.Multifocal pneumonia with methicillin-resistant Staphylococcus aureus sputum positive. Patient is on Zyvox and cefepime. Repeat chest x-ray shows some overall improvement. 3. Paroxysmal atrial fibrillation. Currently rate controlled. 4. Metabolic encephalopathy. 5. History of drug injection with urine drug screen positive for amphetamine, methamphetamine, and THC. 6. Mild transaminitis, improving. 7. Acute deep venous thrombosis of right posterior tibial vein and left popliteal vein. We will continue with therapeutic Lovenox. 8. Constipation. We will continue addressing this more symptomatically. 9. Nutritional needs. Patient is on the nasogastric tube feeding only at 10 mL per hour. I understand he had retained about 70 mL overnight. Because the patient is on Zyvox, we will use erythromycin to help as a prokinetic agent instead of Reglan. cc: Jose Jarrett MD [facility]
[2016-12-21] MEDS: ERYTHROMYCIN 250 MG in NS 150 ML IV SCH ×2 (12:56→20:41)
[2016-12-21] MEDS: M.V.I.-12 10 ML, FOLIC ACID 1 MG, MAGNESIUM SULFATE 1 GM, THIAMINE 100 MG in NS 1,000 ML IV SCH (12:56)
--- NOTE | 2016-12-21 16:31 | PROGRESS NOTE ---
DATE: 12/21/2016 PRESENT ILLNESS: The patient is being treated for a methicillin-resistant Staph aureus pneumonia, which may be complicated by a secondary infection. The patient's leukocytosis could be due to his infection, the steroids that he is getting, or a combination of both. MEDICATIONS: This is day 11 of a treatment with Zyvox, and day 6 of treatment with cefepime. PHYSICAL EXAMINATION: Vital Signs: Temperature is 98.4 degrees, pulse 56, respirations 16, blood pressure 146/90. General: This is a somewhat ill-appearing, young male. He is intubated and sedated. During my exam, he did not make any movements. He did not respond to verbal stimuli. Lungs: He had bilateral rhonchi. Cardiovascular: Heart rate is regular. Abdomen: Soft and nontender. Extremities: Patient has a PICC in his right arm. The site is not erythematous or draining. LABORATORY AND X-RAY: The chest x-ray shows less congestion. CBC shows a white count of 16,090, hemoglobin 12.2, and platelet count 549,000. Blood gases show a pH of 7.48, a PO2 of 57, a pCO2 of 49. The creatinine is 0.6. GFR is greater than 60. ASSESSMENT AND PLAN: Patient has methicillin-resistant Staphylococcus aureus pneumonia with possible super infection. The plan would be to continue with his antibiotics. COMORBIDITIES: Include: 1. Diabetes mellitus. 2. Drug addiction. cc: Lexx Hernandez MD
[2016-12-21] MEDS: NS 500 ML IV SCH (20:28)
[2016-12-21] MEDS: NEXIUM IV SCH (20:39)
[2016-12-22] MEDS: LACRI-LUBE OPH OINT BOTH EYES SCH ×3 (01:25→08:06)
[2016-12-22] MEDS: DUONEB (A & A) INH SCH ×6 (03:10→22:59)
[2016-12-22 04:31] LABS: ALLEN TEST YES; BE 10.4 mmoll (-3.0-3.0); BLOOD TYPE ARTERIAL; DRAW SITE R RADIAL; METHB 1.3 % (0.0-1.5); O2(CT) 16.7 mL/dL (15.0-23.0); PCO2(98.6) 46 mmHg (35-45); PO2(98.6) 70 mmHg (60-100); SAMPLE BLOOD; SRATE 16 BPM; THB 12.8 g/dL (11.5-17.4); TVOL 600 mL; pH(98.6) 7.49 (7.35-7.45)
[2016-12-22 04:33] LABS: MODALITY VENTILATOR
[2016-12-22 04:38] LABS: MANUAL DIFF NEEDED? NO
[2016-12-22 04:43] LABS: BASO% 0.1 % (0.0-0.8); EOS# 0.04 X1000 (0.0-0.7); EOS% 0.3 % (0.0-10.0); HEMATOCRIT 37.9 % (42.0-52.0); HEMOGLOBIN 12.5 g/dL (14.0-18.0); IMM GRAN# 0.22 X1000 (0.0-0.04); IMM GRAN% 1.4 % (0.0-0.5); LYMPH# 1.34 X1000 (1.2-3.4); LYMPH% 8.5 % (20.5-51.1); MCV 91.1 FL (81-99); MONO# 1.38 X1000 (0.11-0.59); MONO% 8.8 % (1.7-9.3); MPV 9.9 FL (7.4-10.4); NEUT% 80.9 % (42.2-75.2); PLT 548 X1000 (130-400); RBC 4.16 XMIL (4.7-6.1)
[2016-12-22] MEDS: ERYTHROMYCIN 250 MG in NS 150 ML IV SCH ×3 (05:00→21:44)
[2016-12-22 05:05] LABS: AGAP 11; ALBUMIN 2.9 g/dL (3.5-5.0); ALKALINE PHOSPHATASE 68 U/L (32-122); BUN 29 mg/dL (8-22); CHLORIDE 96 mmol/L (98-107); COSMO 283; GOT 42 U/L (10-34); GPT 142 U/L (10-44); POTASSIUM 4.1 mmol/L (3.5-5.1); SODIUM 138 mmol/L (136-145); TCO2 31 mmol/L (25-35); TOTAL BILIRUBIN 1.09 mg/dL (0.20-1.00); TOTAL PROTEIN 5.5 g/dL (6.3-8.3)
[2016-12-22] MEDS: DIPRIVAN 1% 1,000 MG/100 ML BOTTLE IV SCH ×3 (05:26→09:10)
--- NOTE | 2016-12-22 07:30 | Diag Imaging Result Doc PS360 ---
CHEST-PORTABLE - 12/22/2016 INDICATION: dyspnea TECHNIQUE: COMPARISON: None FINDINGS: Stable endotracheal tube and nasogastric tube. Stable cardiomegaly and pulmonary vascular congestion. Stable central infiltrates bilaterally. There are probably small pleural effusions. IMPRESSION: No change from prior. Electronically signed by Marin Ramos 12/22/2016 7:28 AM
[2016-12-22] MEDS: SOLU-MEDROL IV SCH ×2 (07:57→20:29)
[2016-12-22] MEDS: NS 500 ML IV SCH (07:58)
[2016-12-22] MEDS: ZYVOX 600 MG/D5W 600 MG/300 ML IVPB IV SCH ×2 (07:58→20:30)
[2016-12-22] MEDS: LASIX IV SCH (08:06)
[2016-12-22] MEDS: MUCOMYST 20% INH SCH ×2 (08:14→19:32)
--- NOTE | 2016-12-22 09:54 | PROGRESS NOTE ---
DATE: 12/22/2016 SUBJECTIVE: Today Mr. Brady continues to be relatively stable. There is not any acute changes overnight. The patient's PEEP dropped yesterday progressively to 6. Understand his saturations went low, so it has to be brought up to 8. At 8, patient is saturating at about 95% to 97%. OBJECTIVE: Vital signs: Blood pressure is 155/90, pulse is 81, respiration is 19, temperature 99.6. Patient is saturating 98 on mechanical ventilation. General exam: Mr. Brady is a 41-year- old male. He is in bed, does not seem to be in any remarkable distress. HEENT: Mucosa is pink and moist. Anicteric and acyanotic. Neck: Supple. Chest: Good air entry bilateral. Some transmitted sounds from the ventilator. Cardiovascular: Regular rate and rhythm. Abdomen: Soft. No hepatosplenomegaly. Extremities: 1+ pedal edema. PAINT DIPPER: Patient is wide awake, off sedation, and seems to be following some commands. Actively withdraws to painful stimulation. LABORATORY DATA: WBC is down to 15.75, hemoglobin is 12.5, platelet count of 548. Chemistry is reviewed and completely unremarkable. AST 41, ALT 142; these are also improving. I's and O's: The patient had 3640 urine output, had a total of 1180 NG tube feedings. The patient had a positive balance of 208. He has a total positive balance of 17, 234. IMAGING DATA: Chest x-ray this morning shows no remarkable changes. ASSESSMENT: 1. Acute hypoxemic respiratory failure (ARDS). The patient continues to be on the ventilator. Currently on FiO2 of 50 and PEEP of 8. Saturations are anywhere between 95- 100. The patient is being followed up by Pulmonary Medicine and there is a plan to start spontaneous breathing trials today. 2. Multifocal pneumonia with sputum positive for methicillin-resistant Staphylococcus aureus. There is a suspicion that there is a superimposed infection. Infectious Disease is on board. The patient is on Zyprexa and cefepime. 3. Paroxysmal atrial fibrillation. The patient was on a drip of diltiazem; this was withheld yesterday because she was doing bradycardia. 4. Metabolic encephalopathy. The patient seems to be improving. He is currently on Diprivan every now and then, but when he is off sedation he seems to be understanding things. 5. Mild transaminitis, medication related. This is improving. 6. Bilateral lower extremity deep vein thromboses. Patient is on therapeutic Lovenox. 7. Constipation. Patient has not had any bowel movement in 3 days. We will continue using Dulcolax suppository. 8. Nutritional needs: Patient is on 10 mL/hour of tube feedings. Seems to be tolerating it very well with the erythromycin as a prokinetic agent. We are going to advance this to 20 mL/hour and closely monitor his residuals. 9. Drug overdose. The patient got admitted with UDS positive for amphetamine, methamphetamine and THC. cc: Jose Jarrett MD Review this afternoon Patient successfully extubated. Continue close monitor Withhold Tube feeding for now MTDD
[2016-12-22] MEDS: LOVENOX SUBQ SCH ×2 (11:22→23:41)
[2016-12-22] MEDS: MAXIPIME 2 GM/NS 2 GM/100 ML IVPB IV SCH ×2 (11:22→23:42)
[2016-12-22 11:34] LABS: ALLEN TEST YES; BE 10.4 mmoll (-3.0-3.0); BLOOD TYPE ARTERIAL; DRAW SITE R RADIAL; METHB 1.2 % (0.0-1.5); O2(CT) 19.6 mL/dL (15.0-23.0); PCO2(98.6) 48 mmHg (35-45); PO2(98.6) 58 mmHg (60-100); SAMPLE BLOOD; SAO2 92.3 % (95.0-100.0); THB 15.6 g/dL (11.5-17.4); pH(98.6) 7.48 (7.35-7.45)
[2016-12-22 11:36] LABS: MODALITY VENTILATOR
[2016-12-22] MEDS: M.V.I.-12 10 ML, FOLIC ACID 1 MG, MAGNESIUM SULFATE 1 GM, THIAMINE 100 MG in NS 1,000 ML IV SCH (13:11)
--- NOTE | 2016-12-22 19:26 | PROGRESS NOTE ---
DATE: 12/22/2016 PRESENT ILLNESS: The patient is being treated for a methicillin-resistant Staph aureus pneumonia which possibly is complicated by a secondary infection as well. The patient continues to have a leukocytosis which may be due to his infection or the fact that he is receiving steroids or some combination of that. MEDICATION: This is day12 of treatment withZyvox and day 7 of treatment with cefepime. PHYSICAL EXAMINATION: Vital Signs: Temperature is 98.7 degrees, pule 98, respirations 16, blood pressure 147/83. General: This is an ill-appearing young male who is in no acute distress. Amazingly, the patient has been intubated today and seems to be doing well on oxygen through a mask without having to go to BiPAP. Lungs: There were bilateral rhonchi. Cardiovascular: Heart rate is regular. Abdomen: Slightly protuberant but soft and apparently not tender. Neurologic: The patient attempted to talk. I could not understand what he was saying. He did not follow request to move his extremities. There was no tremor. LAB AND X-RAY: The patient's CBC shows a white count of 15,750, hemoglobin 12.5 , and platelet count 548,000. Blood gases show a pH of 7.48, PO2 of 58, and a pCO2 of 48. Creatinine is 0.5. GFR is greater than 60. The ALT is 142. Chest x-ray shows stable bilateral infiltrates. ASSESSMENT AND PLAN: The patient has a methicillin-resistant Staph aureus pneumonia which may have a possible super infection. I plan to continue both antibiotics. The patient's comorbidities include the following; diabetes mellitus and drug addiction. cc: MD SABINA Guy
[2016-12-22] MEDS: SODIUM CHLORIDE 0.9% INJ SCH (21:44)
[2016-12-22] MEDS: NEXIUM IV SCH (21:44)
[2016-12-23] MEDS: DUONEB (A & A) INH SCH ×6 (03:24→23:10)
--- NOTE | 2016-12-23 03:44 | PROGRESS NOTE ---
DATE: 12/22/2016 ADDENDUM It is noted that the patient is having penile bleeding. He has a catheter in place. It is a very minimal amount of bleeding. I have put a consult to be called to Dr. Quintanilla tomorrow at 8 a.m. cc: Lexx Hernandez MD
[2016-12-23 04:33] LABS: ALLEN TEST YES; BE 6.4 mmoll (-3.0-3.0); BLOOD TYPE ARTERIAL; DRAW SITE R RADIAL; MODALITY COOL AEROSOL; O2(CT) 18.7 mL/dL (15.0-23.0); PCO2(98.6) 48 mmHg (35-45); PO2(98.6) 75 mmHg (60-100); SAMPLE BLOOD; SAO2 98.2 % (95.0-100.0); THB 14.1 g/dL (11.5-17.4); pH(98.6) 7.43 (7.35-7.45)
[2016-12-23] MEDS: ERYTHROMYCIN 250 MG in NS 150 ML IV SCH ×2 (04:54→12:42)
[2016-12-23 05:34] LABS: MANUAL DIFF NEEDED? NO
[2016-12-23 05:40] LABS: BASO% 0.1 % (0.0-0.8); EOS# 0.06 X1000 (0.0-0.7); EOS% 0.4 % (0.0-10.0); HEMATOCRIT 38.1 % (42.0-52.0); HEMOGLOBIN 12.3 g/dL (14.0-18.0); IMM GRAN# 0.23 X1000 (0.0-0.04); IMM GRAN% 1.4 % (0.0-0.5); LYMPH# 1.37 X1000 (1.2-3.4); LYMPH% 8.1 % (20.5-51.1); MCH 29.8 PG (27-31); MCHC 32.3 g/dL (33-37); MCV 92.3 FL (81-99); MONO# 1.74 X1000 (0.11-0.59); MONO% 10.3 % (1.7-9.3); MPV 10.1 FL (7.4-10.4); NEUT% 79.7 % (42.2-75.2); PLT 617 X1000 (130-400); RBC 4.13 XMIL (4.7-6.1)
[2016-12-23 05:59] LABS: AGAP 8; ALBUMIN 2.8 g/dL (3.5-5.0); ALKALINE PHOSPHATASE 69 U/L (32-122); BUN 24 mg/dL (8-22); CHLORIDE 103 mmol/L (98-107); COSMO 287; GOT 35 U/L (10-34); GPT 110 U/L (10-44); POTASSIUM 3.9 mmol/L (3.5-5.1); SODIUM 142 mmol/L (136-145); TCO2 31 mmol/L (25-35); TOTAL BILIRUBIN 1.31 mg/dL (0.20-1.00); TOTAL PROTEIN 5.9 g/dL (6.3-8.3)
--- NOTE | 2016-12-23 07:23 | Diag Imaging Result Doc PS360 ---
EXAM: CHEST-PORTABLE INDICATION: dyspnea TECHNIQUE: One view COMPARISON: 12/22/2016 FINDINGS: There has been interval extubation. The other support tubes and lines are in stable positions. There are persistent bilateral infiltrates most compatible with edema. This is stable to marginally worsened. Otherwise, no new consolidation is appreciated. Cardiac silhouette is stable. IMPRESSION: Interval extubation and stable to marginal worsening of bilateral infiltrates. Electronically signed by Davis Shabazz 12/23/2016 7:21 AM
[2016-12-23] MEDS: MUCOMYST 20% INH SCH ×2 (07:31→19:15)
[2016-12-23] MEDS: SOLU-MEDROL IV SCH ×2 (07:57→20:07)
[2016-12-23] MEDS: ZYVOX 600 MG/D5W 600 MG/300 ML IVPB IV SCH ×2 (07:57→20:08)
[2016-12-23] MEDS: LASIX IV SCH (08:06)
[2016-12-23] MEDS ORDERED: LASIX IV ONE (08:12)
--- NOTE | 2016-12-23 11:19 | CONSULTATION ---
DATE OF CONSULTATION: 12/23/2016 CONSULTING PHYSICIAN: Dr. Hernandez. REASON FOR CONSULTATION: Penile bleeding. HISTORY OF PRESENT ILLNESS: The patient is not verbal and, hence, the information is obtained from records. It is a 41-year-old male who was admitted on 12/04/2016 after overdosing. He was intubated. He has been extubated, but again is currently nonverbal. Nursing staff had reported that several days ago there was a small amount of bleeding at the glans penis. He obviously has Madden catheter in. It has worsened since yesterday. Urology was consulted. PAST MEDICAL HISTORY: Hypertension, diabetes. PAST SURGICAL HISTORY: None on the record. FAMILY HISTORY/SOCIAL HISTORY: Cannot be obtained due to his noncommunication. REVIEW OF SYSTEMS: Unobtainable due to his mental status. PHYSICAL EXAMINATION: Vital Signs: T 98.1 degrees, P 89, BP 162/90. General: No acute distress. He has an open face mask over him. Abdomen: Protuberant, nontender to palpation. : Madden catheter in place. Testes descended bilaterally. No masses appreciated. He has a tear in the glans penis approximately 4 x 3 mm at 7 o'clock right by the catheter that is actively oozing. No associated mass or lesion appreciated. PERTINENT LABORATORY DATA: White cell count of 17,000, hematocrit of 38, creatinine 0.5. ASSESSMENT: A 41-year-old male with penile bleeding from what looks like a splinting in his glans penis. I used a 4 x 4 gauze tied around the catheter and applied pressure with it against the glans penis. I discussed with nursing staff that if this does not stop the bleeding by tomorrow we can use a small amount of silver nitrate or even consider placing a suture, although the tear is small enough and with him being awake he would not tolerate suture on the glans penis. PLAN: 1. To keep the gauze against the glans penis overnight. 2. Continue Lovenox for now. 3. Will reassess. cc: Timmy Quintanilla MD
[2016-12-23] MEDS: MAXIPIME 2 GM/NS 2 GM/100 ML IVPB IV SCH ×2 (11:46→23:53)
[2016-12-23] MEDS: LOVENOX SUBQ SCH ×2 (11:47→23:52)
[2016-12-23] MEDS: M.V.I.-12 10 ML, FOLIC ACID 1 MG, MAGNESIUM SULFATE 1 GM, THIAMINE 100 MG in NS 1,000 ML IV SCH (12:42)
--- NOTE | 2016-12-23 16:49 | PROGRESS NOTE ---
DATE: 12/23/2016 SUBJECTIVE: Today, Mr. rBady refers to be doing fairly well. He has just been extubated. There were 2 family members at the bedside at the time of the encounter and he was actually joking that he is going to get some "ass whipping" from his family. OBJECTIVE: Vital Signs: Blood pressure is 136/86, pulse is 96, respirations 14, temperature is 98.3 degrees. General: Mr. Brady is a 41-year-old male. He was in bed. He did not seem to be in any remarkable distress. HEENT: Mucosa is pink and moist. Anicteric. Acyanotic. Neck: Supple. Chest: Air entry is bilaterally reduced. There are still bibasilar crepitations. Cardiovascular: Regular rate and rhythm. Abdomen: Soft, nontender. Extremities about 1+ pedal edema. 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 He is able to be kept awake with constant stimulation. He is able to sustain a rational conversation when he is awake and has no focal neurological deficit. LABORATORY DATA: WBC is 16.94, hemoglobin is 12.3, platelet count is 617,000. Chemistry is reviewed. Unremarkable except for AST 35, ALT 110. ASSESSMENT: 1. Acute hypoxemic respiratory failure. Patient is status post extubation. Today is day 1. He is now on a vent mask and seems to be tolerating this. 2. Multifocal pneumonia with sputum positive for methicillin-resistant Staphylococcus aureus. There is also suspicion of a superimposed infection. Patient is on Zyvox and cefepime and is being followed up by Infectious disease. 3. Paroxysmal atrial fibrillation. Controlled. 4. Metabolic encephalopathy, improving. 5. Mild transaminitis likely drug induced, improving. 6. Bilateral lower extremity deep venous thrombosis. Patient is on therapeutic Lovenox. 7. Polysubstance abuse. Patient's urine drug screen was positive for amphetamine, methamphetamine and THC from an outside facility on the day of admission. In general, Mr. Brady is a lot better. He is status post extubation. Today is day one. Patient was evaluated by speech by swallow evaluation he was he was able to pass so he has been started on clear liquid diet today, hopefully to advance as he tolerates. We will continue with the antibiotics. We will continue away diuretic therapy for the fluid overload. We will be cutting down on the steroid needs. We will consult PT to help with early mobilization and hopefully will get him well for discharge in a couple of days. cc: Jose Jarrett MD
--- NOTE | 2016-12-23 18:45 | PROGRESS NOTE ---
DATE: 12/23/2016 PRESENT ILLNESS: The patient is being treated for methicillin-resistant Staphylococcus aureus pneumonia which may have been complicated by a secondary infection as well. The patient's white count is remaining stable. MEDICATION: This is day 13 with treatment with Zyvox and day 8 of treatment with cefepime. PHYSICAL EXAMINATION: Vital Signs: Temperature is 98.3 degrees, pulse 96, respirations 14, blood pressure 136/86. General: This is an ill-appearing young male who is in no acute distress at this time. Ear, nose, and throat: No drainage was noted from the nose or ears. Neck: No meningismus. Thorax: Increased AP diameter of the chest. Lungs: Clear to auscultation. Cardiovascular: Heart rate is regular. Abdomen: Slightly protuberant but soft and not apparently tender. Neurologic: Patient is lethargic. LABORATORY AND X-RAY: Chest x-ray shows bilateral infiltrates. [place] [address], hemoglobin 12.3, and platelet count 617,000. Blood gases show a pH of 7.43, PO2 of 75, and a pCO2 of 48. The creatinine is 0.5. The GFR is greater than 60. The ALT is 110. ASSESSMENT AND PLAN: The patient has severe pneumonia. The plan will be to continue both of his antibiotics. COMORBIDITIES: The patient's comorbidities include diabetes mellitus and drug addiction. cc: Lexx Hernandez MD
[2016-12-23] MEDS: SODIUM CHLORIDE 0.9% INJ SCH (20:46)
[2016-12-23] MEDS: NEXIUM IV SCH (20:46)
[2016-12-24] MEDS: DUONEB (A & A) INH SCH ×6 (03:13→23:30)
[2016-12-24 04:51] LABS: ALLEN TEST YES; BE 8.1 mmoll (-3.0-3.0); BLOOD TYPE ARTERIAL; DRAW SITE R RADIAL; METHB 1.1 % (0.0-1.5); O2(CT) 20.5 mL/dL (15.0-23.0); PCO2(98.6) 40 mmHg (35-45); PO2(98.6) 125 mmHg (60-100); SAMPLE BLOOD; SAO2 99.2 % (95.0-100.0); THB 15.1 g/dL (11.5-17.4); pH(98.6) 7.51 (7.35-7.45)
[2016-12-24 04:52] LABS: MODALITY CANNULA
[2016-12-24 04:58] LABS: MANUAL DIFF NEEDED? NO
[2016-12-24 05:02] LABS: BASO% 0.1 % (0.0-0.8); EOS# 0.02 X1000 (0.0-0.7); EOS% 0.1 % (0.0-10.0); HEMATOCRIT 39.2 % (42.0-52.0); HEMOGLOBIN 12.8 g/dL (14.0-18.0); IMM GRAN# 0.21 X1000 (0.0-0.04); IMM GRAN% 1.4 % (0.0-0.5); LYMPH# 1.61 X1000 (1.2-3.4); LYMPH% 10.4 % (20.5-51.1); MCH 30.1 PG (27-31); MCHC 32.7 g/dL (33-37); MCV 92.2 FL (81-99); MONO# 1.47 X1000 (0.11-0.59); MONO% 9.5 % (1.7-9.3); MPV 10.5 FL (7.4-10.4); NEUT% 78.5 % (42.2-75.2); PLT 578 X1000 (130-400); RBC 4.25 XMIL (4.7-6.1)
[2016-12-24 06:47] LABS: AGAP 13; ALBUMIN 3.1 g/dL (3.5-5.0); ALKALINE PHOSPHATASE 80 U/L (32-122); BUN 25 mg/dL (8-22); CALCIUM 9.2 mg/dL (8.8-10.2); CHLORIDE 99 mmol/L (98-107); COSMO 282; GOT 37 U/L (10-34); GPT 95 U/L (10-44); POTASSIUM 4.3 mmol/L (3.5-5.1); SODIUM 139 mmol/L (136-145); TCO2 27 mmol/L (25-35); TOTAL BILIRUBIN 1.28 mg/dL (0.20-1.00); TOTAL PROTEIN 6.6 g/dL (6.3-8.3)
--- NOTE | 2016-12-24 07:10 | Diag Imaging Result Doc PS360 ---
EXAM: CHEST-PORTABLE HISTORY: dyspnea TECHNIQUE: Portable COMPARISON: 12/23/2016 FINDINGS: Interval removal of the nasogastric tube. No change in the right-sided PICC line. The infiltrates in the right upper lobe are slightly less dense. Vascular distention remains. No pleural effusions identified. No cardiomegaly. IMPRESSION: Mild interval improvement. Electronically signed by Tacos Lama 12/24/2016 7:08 AM
[2016-12-24] MEDS: MUCOMYST 20% INH SCH ×2 (07:58→19:08)
[2016-12-24] MEDS: LASIX IV SCH (08:24)
[2016-12-24] MEDS: ZYVOX 600 MG/D5W 600 MG/300 ML IVPB IV SCH ×2 (08:24→20:14)
[2016-12-24] MEDS: SOLU-MEDROL IV SCH ×2 (08:25→20:12)
[2016-12-24] MEDS: LOVENOX SUBQ SCH ×2 (11:11→23:17)
[2016-12-24] MEDS: MAXIPIME 2 GM/NS 2 GM/100 ML IVPB IV SCH ×2 (11:11→23:17)
[2016-12-24] MEDS: M.V.I.-12 10 ML, FOLIC ACID 1 MG, MAGNESIUM SULFATE 1 GM, THIAMINE 100 MG in NS 1,000 ML IV SCH (12:26)
--- NOTE | 2016-12-24 17:50 | PROGRESS NOTE ---
DATE: 12/24/2016 SUBJECTIVE: The patient is resting comfortably in bed. He was extubated yesterday and appears to be doing well. No acute events noted overnight. OBJECTIVE: Vital Signs: Temperature 97.6 degrees, blood pressure 179/99, heart rate 96, respirations 10, O2 sats 98% on 5 L nasal cannula. General: This is a morbidly obese male who is lying in bed, in no acute distress. Head: Normocephalic, atraumatic. Lungs: Coarse breath sounds bilaterally. No wheezing. No rales. Abdomen: Positive bowel sounds. Soft, nontender, nondistended. Extremities: 2+ edema. No cyanosis. No calf tenderness. Neurologic: The patient is awake and alert. He is able to follow commands. LABS: White blood cell count 15, hemoglobin 12, hematocrit 39, platelets 578,000. Sodium 139, potassium 4.3, chloride 99, CO2 27, BUN 25, creatinine 0.5, glucose 105. Total bilirubin 1.2. Calcium 9.2, AST 37, ALT 95, alkaline phosphatase 85. Albumin 3.1. ASSESSMENT AND PLAN: 1. Acute hypoxemic respiratory failure status post extubation. The patient is doing well. He is currently on nasal cannula. Continue with pulmonary toiletry, bronchodilator therapy and IV antibiotics. 2. Multifocal pneumonia secondary to Methicillin-resistant Staphylococcus aureus. Continue on his Zyvox and cefepime as directed by Dr. Lexx Hernandez. 3. Hypertension. Will add Lopressor. 4. Metabolic encephalopathy. Improved. We will continue to monitor for improvement. 5. Paroxysmal atrial fibrillation. The patient is currently rate controlled and on full-dose Lovenox at this time. 6. Leukocytosis. Slightly improved today. Continue on IV antibiotic therapy. 7. Mild pulmonary edema. The patient is on IV Lasix. We will continue to monitor the urine output closely. 8. Protein calorie malnutrition. The patient is now on a full liquid diet. Will advance the patient's diet as tolerated. 9. Gastrointestinal prophylaxis. Continue on Nexium. cc: Karo Lamar MD
--- NOTE | 2016-12-24 19:03 | PROGRESS NOTE ---
DATE: 12/24/2016 PRESENT ILLNESS: The patient is being treated for Methicillin-resistant Staph aureus and pneumonia which may have been complicated by a secondary infection as well. The patient's white count is elevated but it has been stable. MEDICATIONS: This is day 14 of treatment with Zyvox and day 9 of treatment with cefepime. PHYSICAL EXAMINATION: Vital Signs: Temperature is 97.6 degrees, pulse 96, respirations 10, blood pressure 165/100. General: The patient is extubated. He is talking in a very soft voice. He does not appear to be in any acute distress. Lungs: Clear to auscultation. Cardiovascular: Regular heart rate. Thorax: There is an increased AP diameter of the chest. Extremities: The patient has a PICC in the right arm. The PICC site is not erythematous or purulent. LAB AND X-RAY: There is no new x-ray from today. The CBC for today showed a white count of 15,410, hemoglobin 12.8 and platelet count 578,000. The patient's blood gases from today showed a pH of 7.51, PO2 of 125, and pCO2 of 40. The patient's creatinine today is 0.5. The GFR is greater than 60. ASSESSMENT AND PLAN: The patient has pneumonia and my plan is to continue with both antibiotics that he is already on. COMORBIDITIES: Diabetes mellitus and drug addiction. cc: Lexx Hernandez MD
[2016-12-24] MEDS: LOPRESSOR PO SCH (20:46)
[2016-12-24] MEDS: NEXIUM IV SCH (20:46)
[2016-12-24] MEDS: SODIUM CHLORIDE 0.9% INJ SCH (20:46)
[2016-12-25] MEDS: DUONEB (A & A) INH SCH ×6 (03:10→23:05)
[2016-12-25 04:21] LABS: ALLEN TEST YES; BE 7.2 mmoll (-3.0-3.0); BLOOD TYPE ARTERIAL; DRAW SITE R RADIAL; METHB 0.8 % (0.0-1.5); O2(CT) 18.3 mL/dL (15.0-23.0); PCO2(98.6) 48 mmHg (35-45); PO2(98.6) 94 mmHg (60-100); SAMPLE BLOOD; SAO2 98.7 % (95.0-100.0); THB 13.6 g/dL (11.5-17.4); pH(98.6) 7.44 (7.35-7.45)
[2016-12-25 04:22] LABS: MODALITY CANNULA
--- NOTE | 2016-12-25 06:27 | Diag Imaging Result Doc PS360 ---
EXAM: CHEST-PORTABLE HISTORY: dyspnea TECHNIQUE: Portable AP COMPARISON: 12/24/2016 FINDINGS: There are infiltrates throughout both lungs with vascular distention. The heart is not enlarged. No definite pleural effusions. There has been no significant change compared to the prior exam. IMPRESSION: No interval improvement. Electronically signed by Tacos Lama 12/25/2016 6:24 AM
[2016-12-25 07:12] LABS: MANUAL DIFF NEEDED? NO
[2016-12-25 07:17] LABS: BASO% 0.1 % (0.0-0.8); HEMATOCRIT 38.6 % (42.0-52.0); HEMOGLOBIN 12.5 g/dL (14.0-18.0); IMM GRAN# 0.18 X1000 (0.0-0.04); IMM GRAN% 1.2 % (0.0-0.5); LYMPH# 1.34 X1000 (1.2-3.4); LYMPH% 8.9 % (20.5-51.1); MCH 30.1 PG (27-31); MCHC 32.4 g/dL (33-37); MONO# 1.57 X1000 (0.11-0.59); MONO% 10.4 % (1.7-9.3); MPV 10.2 FL (7.4-10.4); NEUT% 79.4 % (42.2-75.2); PLT 680 X1000 (130-400); RBC 4.15 XMIL (4.7-6.1)
[2016-12-25 07:35] LABS: AGAP 9; ALBUMIN 3.3 g/dL (3.5-5.0); ALKALINE PHOSPHATASE 75 U/L (32-122); BUN 24 mg/dL (8-22); CALCIUM 8.8 mg/dL (8.8-10.2); CHLORIDE 99 mmol/L (98-107); COSMO 282; GOT 30 U/L (10-34); GPT 87 U/L (10-44); POTASSIUM 4.1 mmol/L (3.5-5.1); SODIUM 139 mmol/L (136-145); TCO2 31 mmol/L (25-35); TOTAL BILIRUBIN 1.27 mg/dL (0.20-1.00); TOTAL PROTEIN 6.2 g/dL (6.3-8.3)
[2016-12-25] MEDS: MUCOMYST 20% INH SCH ×2 (07:52→19:30)
[2016-12-25] MEDS: SOLU-MEDROL IV SCH ×2 (08:21→21:15)
[2016-12-25] MEDS: LASIX IV SCH (08:21)
[2016-12-25] MEDS: LOPRESSOR PO SCH ×2 (08:21→21:15)
[2016-12-25] MEDS: ZYVOX 600 MG/D5W 600 MG/300 ML IVPB IV SCH ×2 (08:22→21:16)
--- NOTE | 2016-12-25 10:39 | PROGRESS NOTE ---
DATE: 12/25/2016 SUBJECTIVE: This patient is resting comfortably in bed. He was extubated on the . He appears to be doing well. He is completely alert and oriented x3. He has severe weakness. We will try to put this patient on a chair today and I will start this patient also on a stool softener. OBJECTIVE: Vital Signs: Temperature 98.8, pulse 93, respiratory rate 18, blood pressure 165/97, oxygen saturation 95% on 5 L of nasal cannula. HEENT: Head normocephalic. No trauma. PERRLA. Neck: Supple. No JVD. No masses. Central trachea. Chest: Clear to auscultation. Decreased breath sounds globally with coarse breath sounds. No wheezing, no rales. Abdomen: Soft. Mildly distended. Mild tenderness to palpation at the level of the right abdominal area. Extremities: 2+ lower extremity edema. No clubbing. No cyanosis. Neurological: The patient is alert. He is oriented x3. He is following commands. He is moving all 4 extremities but he has severe weakness. LABORATORY: WBC 15, hemoglobin 12.5, hematocrit 38.6, platelets 660. Sodium 139, potassium 4.1, chloride 99, bicarbonate 31, BUN 24, creatinine 0.5, glucose 97, calcium 8.8. Albumin 3.3. ASSESSMENT AND PLAN: 1. Acute hypoxemic respiratory failure status post extubation. He was extubated on the . He is currently on nasal cannula. He is not having respiratory distress. We will continue with pulmonary toilet, bronchodilator and antibiotics. 2. Multifocal pneumonia secondary to MRSA. Continue with Zyvox and cefepime as per Dr. Hernandez. 3. Hypertension, stable. We will continue with the same management. 4. Metabolic encephalopathy, improved. 5. Paroxysmal atrial fibrillation. Continue with the same management. 6. Leukocytosis. Looks better today, but compared with yesterday, it is about the same. 7. Mild pulmonary edema. This patient is on IV Lasix. We will continue with this management for now. 8. Protein calorie malnutrition. Continue with full liquid diet. Hopefully tomorrow, I will advance the diet. 9. Gastrointestinal prophylaxis. Continue with Nexium. 10. Constipation. I will start this patient on stool softer. 11. Physical deconditioning. I will start this patient on physical therapy. CRITICAL CARE TIME: 35 minutes. cc: Marek Parra MD
[2016-12-25] MEDS: LOVENOX SUBQ SCH ×2 (11:24→22:54)
[2016-12-25] MEDS: MAXIPIME 2 GM/NS 2 GM/100 ML IVPB IV SCH ×2 (11:24→22:54)
[2016-12-25] MEDS: M.V.I.-12 10 ML, FOLIC ACID 1 MG, MAGNESIUM SULFATE 1 GM, THIAMINE 100 MG in NS 1,000 ML IV SCH (13:04)
--- NOTE | 2016-12-25 17:24 | PROGRESS NOTE ---
DATE: 12/25/2016 SUBJECTIVE: Mr. Brady still does not talk back but he appears to be responsive and alert. He denies penile pain. He had gauze now for nearly 2 days which has not been loosened. He denies significant pain at the meatus. OBJECTIVE: Vital Signs: T 98.9 degrees, P 77, BP 145/93. General: No acute distress. Abdomen: Nontender, nondistended. : Madden catheter in place draining clear urine. LABS: White cell count of 15,000, hematocrit 38.6. ASSESSMENT: 41-year-old male with bleeding around the penis secondary to likely Madden trauma. On examination he does not appear to have any active bleeding. He is doing well. I have explained to him that it was likely due to trauma from Madden catheter manipulation. We discussed that unless he has further bleeding issues, we agreed with p.r.n. observation. PLAN: 1. No further intervention needed. 2. If he has more bleeding I will be happy to come and assist but again conservative treatment with pressure had helped him. 3. He does not need further urologic interventions. cc: Timmy Quintanilla MD MTDD
--- NOTE | 2016-12-25 19:56 | PROGRESS NOTE ---
DATE: 12/25/2016 PRESENT ILLNESS: The patient is being treated for Methicillin-resistant Staph aureus pneumonia which may have been complicated by a secondary infection. The patient continues to have leukocytosis which as I mentioned yesterday most likely is due to the steroids that he is on. Today the patient got up, stood and walked also. MEDICATIONS: This is the 15th day of treatment with Zyvox and the 10th day of treatment with cefepime. PHYSICAL EXAMINATION: Vital Signs: Temperature is 98.9 degrees, pulse 77, respirations 15, blood pressure 145/93. General: This is an obese, young male who is in no acute distress. Eyes, ears, nose, throat: No drainage noted from the nose or ears. The patient's eyes are a little bit bloodshot. There were no white patches on his tongue. Neck: No meningismus. Thorax: There was increased AP diameter of the chest. Lungs: There were scattered rhonchi bilaterally. Cardiovascular: Heart rate is regular. Abdomen: A little protuberant but soft and not tender. LAB AND X-RAY: Chest x-ray shows unchanged bilateral congestion. CBC shows a white count of 15,050, hemoglobin 12.5 and platelet count 680,000. Patient's blood gases show a pH of 7.44, PO2 of 94, and a pCO2 of 48. Creatinine 0.5. GFR is greater than 60. ASSESSMENT AND PLAN: Patient has pneumonia and I plan to continue his current antibiotics. I will leave it to the pulmonary physicians about what needs to be done with the steroids. COMORBIDITIES: Diabetes mellitus and drug addiction. cc: Lexx Hernandez MD
[2016-12-25] MEDS: SODIUM CHLORIDE 0.9% INJ SCH (21:15)
[2016-12-25] MEDS: NEXIUM IV SCH (21:15)
[2016-12-25] MEDS: MORPHINE IV PRN (21:16)
[2016-12-26] MEDS: DUONEB (A & A) INH SCH ×6 (03:15→23:10)
[2016-12-26 05:51] LABS: MANUAL DIFF NEEDED? NO; MONO% 9.9 % (1.7-9.3)
[2016-12-26 06:14] LABS: AGAP 11; ALBUMIN 3.2 g/dL (3.5-5.0); ALKALINE PHOSPHATASE 71 U/L (32-122); BUN 23 mg/dL (8-22); CALCIUM 8.5 mg/dL (8.8-10.2); CHLORIDE 97 mmol/L (98-107); COSMO 279; GOT 27 U/L (10-34); GPT 78 U/L (10-44); POTASSIUM 3.9 mmol/L (3.5-5.1); SODIUM 137 mmol/L (136-145); TCO2 29 mmol/L (25-35); TOTAL BILIRUBIN 1.11 mg/dL (0.20-1.00)
[2016-12-26 07:40] LABS: HEMATOCRIT 37.9 % (42.0-52.0); HEMOGLOBIN 12.4 g/dL (14.0-18.0); IMM GRAN# 0.13 X1000 (0.0-0.04); IMM GRAN% 0.9 % (0.0-0.5); LYMPH# 1.09 X1000 (1.2-3.4); LYMPH% 7.7 % (20.5-51.1); MCHC 32.7 g/dL (33-37); MCV 91.5 FL (81-99); MPV 10.1 FL (7.4-10.4); NEUT% 81.5 % (42.2-75.2); PLT 671 X1000 (130-400); RBC 4.14 XMIL (4.7-6.1)
[2016-12-26] MEDS: MUCOMYST 20% INH SCH ×2 (07:41→19:20)
[2016-12-26] MEDS: MIRALAX PO SCH (08:10)
[2016-12-26] MEDS: ZYVOX 600 MG/D5W 600 MG/300 ML IVPB IV SCH ×2 (08:10→20:43)
[2016-12-26] MEDS: LASIX IV SCH (08:11)
[2016-12-26] MEDS: LOPRESSOR PO SCH ×2 (08:11→20:39)
[2016-12-26] MEDS: SOLU-MEDROL IV SCH (08:14)
--- NOTE | 2016-12-26 10:20 | PROGRESS NOTE ---
DATE: 12/26/2016 SUBJECTIVE: This patient is resting comfortably in bed. He was extubated on the . He looks much better today. Physical Therapy is working with him. I will try today to remove the Madden catheter. I will continue physical therapy. This patient is tolerating p.o. but he has severe weakness. I will monitor this patient today, and hopefully tomorrow will transfer this patient to the medical floor, but if in the afternoon he feels fine without a Madden and he is still tolerating p.o., he can be transferred today. OBJECTIVE: Vital signs: Temperature 98.5, pulse 88, respiratory rate 25, blood pressure 126/75, oxygen saturation 98 on 5 L nasal cannula. HEENT: Head normocephalic, no trauma, GILA. Neck: No JVD, no masses. Central trachea. Chest: Clear to auscultation. Decreased breath sounds globally with coarse breath sounds, no wheezing or rales. Abdomen: Soft. He is obese. Mild tenderness to palpation at the level of the right abdominal area. Extremities: 2+ lower extremity edema. No clubbing, no cyanosis. Neurological: The patient is alert. He is oriented x3. He is following commands. He is moving all 4 extremities, but he has severe weakness. LABORATORY: WBC 14.2, hemoglobin 12.4, hematocrit 37.9, platelets 671. Sodium 137, potassium 3.9, chloride 97, bicarbonate 29, BUN 23, creatinine 0.5, glucose 133, calcium 8.5. Albumin 3.2. ASSESSMENT AND PLAN: 1. Acute hypoxemic respiratory failure status post extubation. As I mentioned before, this patient was extubated on the . He is currently on nasal cannula 5 L, and he is tolerating this. He is not having respiratory distress. Will continue with pulmonary toilet, bronchodilator, antibiotics, and steroids, but I decreased the dose of steroids from 40 IV twice a day to 40 daily, and hopefully tomorrow I will switch it to p.o. medication. 2. Multifocal pneumonia secondary to methicillin-resistant Staphylococcus aureus (MRSA). Continue management as per Dr. Hernandez. 3. Hypertension, stable. Continue with same management. 4. Metabolic encephalopathy, resolved. 5. Paroxysmal atrial fibrillation. Continue with the same management. 6. Leukocytosis. This is looking better. Continue with the same management. I decreased the dose of steroids today, and probably the leukocytosis will improve. 7. Mild pulmonary edema. The patient is on Lasix IV. Hopefully, tomorrow after a chest x-ray, probably I will switch the IV medication to p.o. I already asked for the chest x-ray. 8. Protein calorie malnutrition. This patient has been on a full liquid diet. I will advance the diet to GI soft. 9. GI prophylaxis with Nexium. 10.Constipation. Yesterday he had a bowel movement. I will continue with stool softener. 11.Physical deconditioning. Continue with physical therapy. Critical care time: 35 minutes. cc: Marek Parra MD
[2016-12-26] MEDS: LOVENOX SUBQ SCH ×2 (12:48→23:54)
[2016-12-26] MEDS: MAXIPIME 2 GM/NS 2 GM/100 ML IVPB IV SCH ×2 (12:48→23:55)
[2016-12-26] MEDS: M.V.I.-12 10 ML, FOLIC ACID 1 MG, MAGNESIUM SULFATE 1 GM, THIAMINE 100 MG in NS 1,000 ML IV SCH (13:53)
[2016-12-26] MEDS: NEXIUM IV SCH (20:45)
[2016-12-27] MEDS: DUONEB (A & A) INH SCH ×6 (03:25→23:13)
[2016-12-27] MEDS: MORPHINE IV PRN ×2 (04:39→17:56)
[2016-12-27 06:01] LABS: MANUAL DIFF NEEDED? NO
[2016-12-27 06:03] LABS: BASO% 0.1 % (0.0-0.8); EOS# 0.22 X1000 (0.0-0.7); EOS% 1.5 % (0.0-10.0); HEMATOCRIT 35.8 % (42.0-52.0); HEMOGLOBIN 12.1 g/dL (14.0-18.0); IMM GRAN# 0.18 X1000 (0.0-0.04); IMM GRAN% 1.2 % (0.0-0.5); LYMPH# 3.48 X1000 (1.2-3.4); LYMPH% 23.5 % (20.5-51.1); MCH 30.6 PG (27-31); MCHC 33.8 g/dL (33-37); MCV 90.6 FL (81-99); MONO# 2.18 X1000 (0.11-0.59); MONO% 14.7 % (1.7-9.3); MPV 9.3 FL (7.4-10.4); PLT 626 X1000 (130-400); RBC 3.95 XMIL (4.7-6.1)
[2016-12-27 06:38] LABS: AGAP 8; ALBUMIN 3.3 g/dL (3.5-5.0); ALKALINE PHOSPHATASE 65 U/L (32-122); BUN 19 mg/dL (8-22); CALCIUM 8.7 mg/dL (8.8-10.2); CHLORIDE 98 mmol/L (98-107); COSMO 277; GOT 25 U/L (10-34); GPT 66 U/L (10-44); POTASSIUM 3.2 mmol/L (3.5-5.1); SODIUM 137 mmol/L (136-145); TCO2 31 mmol/L (25-35); TOTAL BILIRUBIN 1.23 mg/dL (0.20-1.00); TOTAL PROTEIN 5.8 g/dL (6.3-8.3)
[2016-12-27 06:49] LABS: INR 1.2; PROTIME 12.7 Seconds (9.2-11.7)
[2016-12-27] MEDS: MUCOMYST 20% INH SCH ×2 (07:33→20:00)
[2016-12-27] MEDS ORDERED: KLOR-CON PO ONE (07:48)
[2016-12-27] MEDS: ZYVOX 600 MG/D5W 600 MG/300 ML IVPB IV SCH ×2 (07:55→21:39)
--- NOTE | 2016-12-27 08:21 | Diag Imaging Result Doc PS360 ---
EXAM: CHEST-PORTABLE INDICATION: SOB TECHNIQUE: One view COMPARISON: 12/25/2016 FINDINGS: There has been interval improvement of infiltrate at the right lung base. The infiltrates throughout the left lung and at the right upper lung zone are stable to marginally worsened. Otherwise, no new consolidations are identified. Cardiac silhouette is stable. IMPRESSION: Mixed changes as described above. Electronically signed by Davis Shabazz 12/27/2016 8:19 AM
[2016-12-27] MEDS: SOLU-MEDROL IV SCH (09:09)
[2016-12-27] MEDS: MIRALAX PO SCH (09:09)
[2016-12-27] MEDS: LASIX IV SCH (09:09)
[2016-12-27] MEDS: LOPRESSOR PO SCH ×2 (09:09→21:39)
[2016-12-27] MEDS: VITAMIN B-1 PO SCH (09:11)
[2016-12-27] MEDS: FOLIC ACID PO SCH (09:11)
--- NOTE | 2016-12-27 09:22 | PROGRESS NOTE ---
DATE: 12/27/2016 SUBJECTIVE: This patient states that he is feeling good. He is still having generalized weakness. He does not have a peripheral line. Yesterday, his PICC line came out and today, we are going to try to replace it. He is not complaining of shortness of breath or chest pain at this moment. I will advance his diet and I will start this patient on melatonin. I will replace the potassium as well. OBJECTIVE: Vital Signs: Temperature 99.1 degrees, pulse 85, respiratory rate 17, blood pressure 139/88, oxygen saturation 98 on 3 L of nasal cannula. HEENT: Head normocephalic. No trauma. PERRLA. Neck: Supple. No JVD. No masses. Central trachea. Chest: Coarse breath sounds bilaterally. Decreased breath sounds, mostly at the level of the left lower lung. Abdomen: Soft, protuberant. Mildly distended. Nontender. Extremities: There is 1 to 2+ lower extremity edema. No clubbing. No cyanosis. Neurological Examination: The patient is alert, oriented x3. No focal neurological deficits. He is following commands. Laboratory: WBC 14.7, hemoglobin 12.1, hematocrit 35.8, platelets 626,000. Sodium 137, potassium 3.2, chloride 98, bicarbonate 31, BUN 19, creatinine 0.5, glucose 107, calcium 8.7. Albumin 3.3. ASSESSMENT AND PLAN: 1. Acute hypoxemic respiratory failure status post extubation. This patient was extubated on the . He is currently on a nasal cannula and his oxygen saturation has been stable. We did an x-ray today that showed some worsening. There are infiltrates throughout the left lung high and the right upper lung zone. Since I can appreciate the worsening of his x-ray, even though this patient is breathing fine and not complaining of shortness of breath, I will keep this patient 1 more day in the intensive care unit for close monitoring. 2. Multifocal pneumonia secondary to methicillin-resistant Staphylococcus aureus. Continue management as per Dr. Hernandez. We will try to put back a peripherally inserted central catheter line today so we can continue with intravenous antibiotics. 3. Hypertension, stable. Continue with the same management. 4. Metabolic encephalopathy, resolved. 5. Paroxysmal atrial fibrillation. Continue with the same management. At this moment, is sinus rhythm. 6. Leukocytosis. Compared with yesterday, it is about the same. No changes. Continue to monitor. 7. Mild pulmonary edema. He is on intravenous Lasix. Hopefully tomorrow, if the chest x-ray looks better, probably we can switch it to oral Lasix. For now, we will continue with intravenous. 8. Protein calorie malnutrition. I will advance his diet from full liquid diet to soft GI diet. 9. Gastrointestinal prophylaxis with Nexium. 10. Constipation. Continue with stool softener. 11. Physical deconditioning. Continue with physical therapy. 12. Insomnia. I will start this patient on melatonin. 13. Hypokalemia. I will replace the potassium. CRITICAL CARE TIME: 30 minutes. cc: Marek Parra MD
[2016-12-27] MEDS ORDERED: NS 250 ML ONE (10:55)
[2016-12-27] MEDS: LOVENOX SUBQ SCH (11:15)
[2016-12-27] MEDS: MAXIPIME 2 GM/NS 2 GM/100 ML IVPB IV SCH (11:20)
[2016-12-27] MEDS: NEXIUM IV SCH (21:39)
[2016-12-27] MEDS: MELATONIN PO SCH (21:39)
[2016-12-28] MEDS: LOVENOX SUBQ SCH ×3 (01:04→23:41)
[2016-12-28] MEDS: MAXIPIME 2 GM/NS 2 GM/100 ML IVPB IV SCH ×3 (01:04→23:41)
[2016-12-28] MEDS: DUONEB (A & A) INH SCH ×6 (03:34→23:30)
[2016-12-28] MEDS: MORPHINE IV PRN ×2 (04:18→09:02)
[2016-12-28 06:31] LABS: MANUAL DIFF NEEDED? NO
[2016-12-28 06:43] LABS: BASO% 0.1 % (0.0-0.8); EOS# 0.21 X1000 (0.0-0.7); EOS% 1.2 % (0.0-10.0); HEMATOCRIT 35.1 % (42.0-52.0); HEMOGLOBIN 11.8 g/dL (14.0-18.0); IMM GRAN# 0.17 X1000 (0.0-0.04); LYMPH# 3.07 X1000 (1.2-3.4); MCH 30.3 PG (27-31); MCHC 33.6 g/dL (33-37); MCV 90.2 FL (81-99); MONO# 2.43 X1000 (0.11-0.59); MONO% 14.2 % (1.7-9.3); MPV 9.8 FL (7.4-10.4); NEUT% 65.5 % (42.2-75.2); PLT 571 X1000 (130-400); RBC 3.89 XMIL (4.7-6.1)
[2016-12-28 07:12] LABS: AGAP 11; ALKALINE PHOSPHATASE 69 U/L (32-122); BUN 17 mg/dL (8-22); CALCIUM 8.6 mg/dL (8.8-10.2); CHLORIDE 97 mmol/L (98-107); COSMO 275; GOT 26 U/L (10-34); GPT 71 U/L (10-44); POTASSIUM 3.3 mmol/L (3.5-5.1); SODIUM 136 mmol/L (136-145); TCO2 28 mmol/L (25-35); TOTAL BILIRUBIN 1.29 mg/dL (0.20-1.00); TOTAL PROTEIN 5.7 g/dL (6.3-8.3)
[2016-12-28] MEDS: MUCOMYST 20% INH SCH ×2 (07:15→19:35)
--- NOTE | 2016-12-28 07:42 | Diag Imaging Result Doc PS360 ---
CHEST-1 VIEW - 12/28/2016 INDICATION: RUL TECHNIQUE: COMPARISON: 12/27/2016 FINDINGS: There is a new right PICC line with the catheter tip in the lower SVC. Stable coarse bilateral upper lobe infiltrates. Stable cardiomegaly. Lung volumes are very low. IMPRESSION: New PICC line, otherwise no change from prior. Electronically signed by Marin Ramos 12/28/2016 7:40 AM
[2016-12-28] MEDS: LASIX IV SCH (09:01)
[2016-12-28] MEDS: VITAMIN B-1 PO SCH (09:01)
[2016-12-28] MEDS: LOPRESSOR PO SCH ×2 (09:01→21:31)
[2016-12-28] MEDS: FOLIC ACID PO SCH (09:01)
[2016-12-28] MEDS: SOLU-MEDROL IV SCH (09:01)
[2016-12-28] MEDS: MIRALAX PO SCH (09:02)
[2016-12-28] MEDS: ZYVOX 600 MG/D5W 600 MG/300 ML IVPB IV SCH ×2 (09:03→21:30)
--- NOTE | 2016-12-28 11:42 | PROGRESS NOTE ---
DATE: 12/28/2016 PRESENT ILLNESS: The patient is being treated for methicillin-resistant Staph aureus pneumonia which may have been complicated by a secondary infection which would be most likely a gram- negative tere organism. The patient has leukocytosis. I think in part this is due to steroids although the steroid dose has been decreasing. MEDICATIONS: This is day 18 of treatment with Zyvox and day 13 of treatment with cefepime. PHYSICAL EXAMINATION: Vital Signs: Temperature is 98.1 degrees, pulse 86, respirations 21, blood pressure 169/93. General: This is an obese, young male who is in no acute distress. Ear nose and throat: He can hear my spoken words. He can see near objects. Lungs: Clear to auscultation. Cardiovascular: Heart rate is regular. There was bilateral leg edema. Abdomen: Soft. It was slightly protuberant. Extremities: Patient has a PICC in the right arm. This has a dressing around it. The dressing is intact. LAB AND X-RAY: [place] [address]. Hemoglobin 11.8, and platelet count 571,000. Creatinine is 0.5. GFR is greater than 60. Liver function studies are normal. Chest x- ray shows stable bilateral upper lobe infiltrates. ASSESSMENT AND PLAN: Patient has pneumonia due to MRSA and possibly a secondary organism most likely a gram-negative tere. My plan is to continue the antibiotics for 3 more days on cefepime and Zyvox and then discontinue the antibiotics. COMORBIDITIES: Include diabetes mellitus and drug addiction. cc: Lexx Hernandez MD
[2016-12-28] MEDS ORDERED: KLOR-CON PO ONE (16:10)
--- NOTE | 2016-12-28 18:00 | PROGRESS NOTE ---
DATE: 12/28/2016 SUBJECTIVE: The patient is sitting up in the chair. He has no complaints. He states that he is very weak. He got up with physical therapy and took a couple of steps, but felt too weak to continue. OBJECTIVE: Vital Signs: Temperature 98.6 degrees, blood pressure 144/93, heart rate 96, respirations 21, O2 saturations 98% on room air. General: This is a middle-aged male, sitting in a chair in no acute distress. Head normocephalic atraumatic. Heart: S1, S2 normal. Lungs: Equal air entry bilaterally. No crackles, no rales. Abdomen: Positive bowel sounds. Soft, obese, nontender, nondistended. Extremities: 2+ edema. No cyanosis. No calf tenderness. Neurologic: The patient is alert and oriented x 3. LABS: White blood cell count 17, hemoglobin 11, hematocrit 35, platelets 571,000. Sodium 136, potassium 3.3, chloride 97, CO2 28, BUN 17, creatinine 0.5, glucose 126, calcium 8.6, total bilirubin 1.2, AST 26, ALT 71, alkaline phosphatase 69, albumin 3. ASSESSMENT AND PLAN: 1. Acute hypoxemic respiratory failure status post extubation. Continue with pulmonary toiletry and supplemental oxygen. 2. Pneumonia secondary to Methicillin-resistant Staphylococcus aureus. Continue on cefepime and Zyvox. 3. Volume overload. This is slowly improving. Continue on IV Lasix. 4. Folate deficiency. Continue on folic acid replacement. 5. Morbid obesity. Aware. 6. Paroxysmal atrial fibrillation. The patient is currently rate controlled. Continue on Lopressor. The patient is on full-dose Lovenox. We will need transition this to an oral anticoagulant. 7. Chronic obstructive pulmonary disease. Continue on bronchodilator therapy and steroid therapy. 8. Continue with physical therapy. cc: Karo Lamar MD
[2016-12-28] MEDS: NEXIUM IV SCH (21:31)
[2016-12-28] MEDS: MELATONIN PO SCH (21:31)
[2016-12-29] MEDS: DUONEB (A & A) INH SCH ×6 (03:10→22:48)
[2016-12-29 06:43] LABS: MANUAL DIFF NEEDED? NO
[2016-12-29 06:52] LABS: BASO% 0.1 % (0.0-0.8); EOS# 0.29 X1000 (0.0-0.7); EOS% 1.6 % (0.0-10.0); HEMOGLOBIN 11.4 g/dL (14.0-18.0); IMM GRAN# 0.15 X1000 (0.0-0.04); IMM GRAN% 0.8 % (0.0-0.5); LYMPH# 3.12 X1000 (1.2-3.4); LYMPH% 16.7 % (20.5-51.1); MCH 30.3 PG (27-31); MCHC 33.5 g/dL (33-37); MCV 90.4 FL (81-99); MONO# 2.07 X1000 (0.11-0.59); MONO% 11.1 % (1.7-9.3); MPV 9.8 FL (7.4-10.4); NEUT% 69.7 % (42.2-75.2); PLT 531 X1000 (130-400); RBC 3.76 XMIL (4.7-6.1)
[2016-12-29 07:09] LABS: MAGNESIUM 1.7 mg/dL (1.5-2.7)
[2016-12-29 07:15] LABS: AGAP 12; ALKALINE PHOSPHATASE 61 U/L (32-122); BUN 16 mg/dL (8-22); CALCIUM 8.5 mg/dL (8.8-10.2); CHLORIDE 99 mmol/L (98-107); COSMO 278; GOT 28 U/L (10-34); GPT 64 U/L (10-44); POTASSIUM 3.7 mmol/L (3.5-5.1); SODIUM 139 mmol/L (136-145); TCO2 28 mmol/L (25-35); TOTAL BILIRUBIN 1.54 mg/dL (0.20-1.00); TOTAL PROTEIN 5.7 g/dL (6.3-8.3)
[2016-12-29] MEDS: MUCOMYST 20% INH SCH ×2 (07:44→19:20)
[2016-12-29] MEDS: ZYVOX 600 MG/D5W 600 MG/300 ML IVPB IV SCH (08:28)
[2016-12-29] MEDS: LASIX IV SCH (08:29)
[2016-12-29] MEDS: FOLIC ACID PO SCH (08:29)
[2016-12-29] MEDS: MIRALAX PO SCH (08:29)
[2016-12-29] MEDS: SOLU-MEDROL IV SCH (08:29)
[2016-12-29] MEDS: VITAMIN B-1 PO SCH (08:29)
[2016-12-29] MEDS: LOPRESSOR PO SCH ×2 (08:30→20:06)
[2016-12-29] MEDS: TYLENOL PO PRN (08:32)
[2016-12-29] MEDS ORDERED: VITAMIN D PO SCH (10:15)
[2016-12-29] MEDS: LOVENOX SUBQ SCH (11:55)
[2016-12-29] MEDS: MAXIPIME 2 GM/NS 2 GM/100 ML IVPB IV SCH (11:56)
--- NOTE | 2016-12-29 14:51 | PROGRESS NOTE ---
DATE: 12/29/2016 SUBJECTIVE: The patient is resting comfortably in bed. No acute events noted overnight. OBJECTIVE: Vital Signs: Temperature 98 degrees, blood pressure 157/85, heart rate 101, respirations 20. O2 saturations 94% on 3 L nasal cannula. General: This is a morbidly obese male, sitting up in bed in no acute distress. Head: Normocephalic, atraumatic. Heart: S1, S2. Normal tachycardic. Lungs: Equal air entry bilaterally. No crackles. No rales. Abdomen: Positive bowel sounds. Soft, nontender, nondistended. Extremities: No edema. No cyanosis. LABORATORY DATA: White blood cell count 18, hemoglobin 11, hematocrit 34, platelets 531,000. Sodium 139, potassium 3.7, chloride 99, CO2 of 28. BUN 16, creatinine 0.5, glucose 86. Albumin 3. AST 28, ALT 64. Magnesium 1.7, phosphorus 2.9. Vitamin D level 15. ASSESSMENT AND PLAN: 1. Acute hypoxemic respiratory failure secondary to pneumonia and acute respiratory distress syndrome status post extubation. Continue with antibiotic therapy, bronchodilator therapy, and supplemental oxygen. 2. Pneumonia secondary to Methicillin-resistant Staphylococcus aureus. Continue on cefepime and Zyvox. 3. Volume overload, improved. The patient is currently on Lasix. 4. Vitamin D deficiency. We will start the patient on vitamin D replacement. 5. Folate deficiency. Continue on folic acid replacement. 6. Morbid obesity, aware. 7. Paroxysmal atrial fibrillation. Continue on Lopressor and full dose Lovenox. 8. Chronic obstructive pulmonary disease. Continue on IV steroids and bronchodilator therapy. 9. Bilateral lower extremity DVT. Continue on lovenox 10. Continue with physical therapy. cc: MD SABINA Burnett
--- NOTE | 2016-12-29 16:07 | PROGRESS NOTE ---
DATE: 12/29/2016 PRESENT ILLNESS: The patient is being treated for a methicillin-resistant Staph aureus pneumonia, complicated by a secondary infection, which most likely would be a gram- negative tere organism. The patient remains with a high WBC. He also is on steroids. MEDICATIONS: This is day 19 for Zyvox, and day 14 for cefepime. PHYSICAL EXAMINATION: Vital Signs: Temperature is 98.5 degrees, pulse 101, respirations 18, blood pressure 157/85. General: This is an obese, young male. He is in no acute distress. Ears, nose and throat: There are no white patches on the tongue. The patient talks in a soft voice. Lungs: Clear to auscultation. Cardiovascular: Regular heart rate. Abdomen: Soft and nontender. LABORATORY AND X-RAY: Chest x-ray shows stable bilateral upper lobe infiltrates. CBC today had a white count of 18,650, hemoglobin 11.4, and platelet count 531,000. Creatinine 0.5. GFR is greater than 60. ASSESSMENT AND PLAN: The patient has pneumonia, as mentioned above. My plan now is to stop the patient's antibiotics. He has been on them a long time, I think the residual in the patient's lung, and also leukocytosis, may be due to factors other than infection. The patient's comorbidities included diabetes mellitus, drug addiction and a suicide attempt. cc: Lexx Hernandez MD [facility]TDD
[2016-12-29] MEDS: SODIUM CHLORIDE 0.9% INJ SCH (20:05)
[2016-12-29] MEDS: MELATONIN PO SCH (20:05)
[2016-12-29] MEDS: MORPHINE IV PRN (20:06)
[2016-12-29] MEDS: NEXIUM IV SCH (20:06)
[2016-12-30] MEDS: DUONEB (A & A) INH SCH ×6 (03:15→22:37)
[2016-12-30 06:58] LABS: MANUAL DIFF NEEDED? NO
[2016-12-30 07:00] LABS: BASO% 0.1 % (0.0-0.8); EOS# 0.25 X1000 (0.0-0.7); EOS% 1.7 % (0.0-10.0); HEMATOCRIT 33.2 % (42.0-52.0); IMM GRAN# 0.16 X1000 (0.0-0.04); IMM GRAN% 1.1 % (0.0-0.5); LYMPH# 3.06 X1000 (1.2-3.4); LYMPH% 20.2 % (20.5-51.1); MCHC 33.1 g/dL (33-37); MCV 90.5 FL (81-99); MONO# 1.88 X1000 (0.11-0.59); MONO% 12.4 % (1.7-9.3); MPV 9.4 FL (7.4-10.4); NEUT% 64.5 % (42.2-75.2); PLT 521 X1000 (130-400); RBC 3.67 XMIL (4.7-6.1)
[2016-12-30] MEDS: MUCOMYST 20% INH SCH ×2 (07:16→19:15)
[2016-12-30 07:31] LABS: AGAP 12; ALKALINE PHOSPHATASE 61 U/L (32-122); BUN 16 mg/dL (8-22); CALCIUM 8.8 mg/dL (8.8-10.2); CHLORIDE 99 mmol/L (98-107); COSMO 279; GOT 24 U/L (10-34); GPT 58 U/L (10-44); POTASSIUM 3.5 mmol/L (3.5-5.1); SODIUM 139 mmol/L (136-145); TCO2 28 mmol/L (25-35); TOTAL BILIRUBIN 1.12 mg/dL (0.20-1.00); TOTAL PROTEIN 5.7 g/dL (6.3-8.3)
[2016-12-30] MEDS: LASIX IV SCH (08:49)
[2016-12-30] MEDS: VITAMIN B-1 PO SCH (08:49)
[2016-12-30] MEDS: MIRALAX PO SCH (08:49)
[2016-12-30] MEDS: LOPRESSOR PO SCH ×2 (08:49→20:40)
[2016-12-30] MEDS: FOLIC ACID PO SCH (08:49)
[2016-12-30] MEDS: ELIQUIS PO SCH ×2 (08:49→20:40)
--- NOTE | 2016-12-30 15:57 | PROGRESS NOTE ---
DATE: 12/30/2016 SUBJECTIVE: The patient is sitting up in a chair. He got up and walked briefly with physical therapy this morning. He is still very weak. OBJECTIVE: Vital Signs: Temperature 98.1 degrees, blood pressure 149/92, heart rate 98, respirations 24, O2 saturations 95% on room air. General: This is a morbidly obese male, sitting in a chair in no acute distress. Head normocephalic, atraumatic. Heart: S1, S2 normal. Tachycardic. Lungs clear to auscultation bilaterally. Abdomen: Positive bowel sounds. Soft, obese, nontender, nondistended. Extremities: +1 edema. No cyanosis. No calf tenderness. Neuro: The patient is awake and alert. LABORATORY DATA: White blood cell count 15, hemoglobin 11, hematocrit 33, platelets 521,000. Sodium 139, potassium 3.5, chloride 99, CO2 of 28. BUN 16, creatinine 0.4, glucose 90. ASSESSMENT AND PLAN: 1. Acute hypoxemic respiratory failure secondary to pneumonia. Resolved. 2. Pneumonia secondary to Methicillin-resistant Staphylococcus aureus. The patient will be sent home on doxycycline. 3. Volume overload. Stable. Will switch the patient to oral Lasix. 4. Morbid obesity, aware. 5. Paroxysmal atrial fibrillation. Continue on Lopressor and Eliquis was started today. 6. Folate deficiency. Continue on folic acid replacement. 7. Vitamin D deficiency. Continue on vitamin D replacement. 8. Chronic obstructive pulmonary disease. Will discontinue the IV Solu-Medrol. 9. Polysubstance abuse. Aware 10. Bilateral lower extremity DVT. The patient was started on eliquis today. 11. Continue with physical therapy. DISPOSITION: Hopefully, the patient will be able to be discharged home this week with home health, to continue physical therapy as outpatient. cc: Karo Lamar MD [facility]
--- NOTE | 2016-12-30 17:29 | PROGRESS NOTE ---
DATE: 12/30/2016 PRESENT ILLNESS: The patient is being treated for methicillin-resistant Staph aureus pneumonia that was possibly complicated by a secondary infection. He does continue to have leukocytosis but he is on steroids as well. MEDICATIONS: This is day 20 of Zyvox and day 15 for cefepime. PHYSICAL EXAMINATION: Vital Signs: Temperature is 98.1 degrees, pulse is 101, respirations 18, blood pressure 146/85. General: This is an obese, young male. He is in no acute distress. Ears, nose, and throat: There were no white patches on his tongue. His face has a plethoric, reddish face. Lungs: Clear to auscultation. Cardiovascular: Heart rate is regular. Abdomen: Soft and nontender. LAB AND X-RAY: There is no new x-ray today. The CBC today showed a white count of 15,130, hemoglobin 11, platelet count 521,000. Creatinine 0.4. GFR is greater than 60. ASSESSMENT AND PLAN: I discussed the patient's plan with Dr. Lamar and the patient. We agree that tomorrow the patient will go home and continue doing physical rehabilitation at home. I am going to electronically print a prescription for doxycycline for 10 more days and I will see the patient in my office in 2 weeks. At which time, I will examine him and also get another chest x- ray and CBC and probably creatinine as well. The patient's comorbidities include diabetes mellitus, drug addiction with a suicide attempt. cc: Lexx Hernandez MD
[2016-12-30] MEDS: MELATONIN PO SCH (20:40)
[2016-12-30] MEDS: MORPHINE IV PRN (20:43)
[2016-12-31] MEDS: DUONEB (A & A) INH SCH ×3 (03:41→11:16)
[2016-12-31] MEDS ORDERED: PRILOSEC PO SCH (07:00)
[2016-12-31] MEDS: MUCOMYST 20% INH SCH (07:41)
[2016-12-31] MEDS: FOLIC ACID PO SCH (08:05)
[2016-12-31] MEDS: LOPRESSOR PO SCH (08:05)
[2016-12-31] MEDS: ELIQUIS PO SCH (08:05)
[2016-12-31] MEDS: VITAMIN B-1 PO SCH (08:05)
[2016-12-31] MEDS: MIRALAX PO SCH (08:06)
[2016-12-31 08:13] VITALS: BP 153/100
[2016-12-31] MEDS ORDERED: LASIX PO SCH (09:00)
--- NOTE | 2017-01-07 08:47 | DISCHARGE SUMMARY ---
ADMISSION DATE: 12/04/2016 DISCHARGE DATE: 12/31/2016 FINAL DISCHARGE DIAGNOSES: 1. Acute hypoxemic respiratory failure. 2. Pneumonia secondary to Methicillin-resistant Staphylococcus aureus. 3. Volume overload. 4. Morbid obesity. 5. Paroxysmal atrial fibrillation. 6. Folate deficiency. 7. Vitamin D deficiency. 8. Chronic obstructive pulmonary disease. 9. Polysubstance abuse. 10. Bilateral lower extremity deep vein thrombosis. CONSULTATIONS REQUESTED DURING THIS HOSPITAL STAY: 1. ID consultation with Dr. Hernandez. 2. Pulmonary consultation with Dr. Borja. 3. Cardiology consultation with Dr. Pryor. 4. Urology consultation with Dr. Quintanilla. PROCEDURES PERFORMED: During this hospital stay: Bronchoscopy to relieve mucous plugging performed on 12/07/2016. HOSPITAL COURSE: Mr. Brady is a 41-year-old male with a history of polysubstance abuse who was transferred from , after the patient was noted to be overdosed and unresponsive. The patient was intubated and sedated and transferred to [facility]. Pulmonary Medicine, as well as Cardiology and ID were consulted. A chest x-ray was done that revealed pneumonia. Blood cultures and sputum cultures were obtained and the patient was started on broad-spectrum antibiotics. The patient was noted to be in atrial fibrillation with RVR, so Cardiology was consulted for assistance with management. The patient was placed on a Cardizem drip to aid with rate control. A 2-dimensional echocardiogram was done that revealed an ejection fraction of 55% to 60%. Ultimately, the sputum culture grew out Staphylococcus aureus, which was later identified as MRSA. The patient was treated with Zyvox and cefepime. With the initiation of this antibiotic regimen, the patient's respiratory status improved. The patient did however develop mucous plugging and had to undergo a bronchoscopy to relieve the mucous plugging. Slowly over the course of the hospitalization, the patient continued to improve and was ultimately extubated. The patient was noted to be severely deconditioned so Physical Therapy was consulted. Eventually, the patient was able to be transferred to the medical floor and physical therapy was continued. The patient also had venous Dopplers done which revealed bilateral DVT. As a result, the patient was placed on full-dose Lovenox. Eventually this was transitioned to Eliquis. Case management was consulted to assist with obtaining the patient's medications needed for discharge. The patient was switched to doxycycline for another 10 days to complete the treatment for the MRSA pneumonia by Dr. Hernandez. Ultimately, the patient was cleared for discharge home on 12/31/2016. DISCHARGE MEDICATIONS: 1. Doxycycline 100 mg p.o. every 12 hours x10 days. 2. Eliquis 5 mg p.o. twice a day. 3. Vitamin D2 at 50,000 units oral every 7 days. 4. Folic acid 1 mg p.o. daily. 5. Metoprolol 50 mg p.o. twice a day. 6. Prilosec 40 mg p.o. daily. 7. Lasix 40 mg p.o. daily. DISCHARGE DIET: Low-sodium diet. ACTIVITY: As tolerated. FOLLOWUP INSTRUCTIONS: The patient has been advised to follow up with Dr. Lexx Hernandez as scheduled by his clinic. The patient has also been advised to find a primary care physician to follow up with on a routine basis. cc: Karo Lamar MD
== END 2016-12-31 14:17 | disposition home or self-care (01) ==
LOC: ICU 19:26 → SUATTDRO 19:26 → 3N 12-27 14:47
PROVIDERS: ATTEND Internal Medicine